=== PATIENT | male | born 1940 | race Caucasian/White ===

== ENCOUNTER 2019-12-21 18:19 | Outpatient (REF) | payer MEDICARE, OTHER, SELFPAY | END 2019-12-21 18:20 | disposition home or self-care (01) | LOC: HO.LAB 18:19 | PROVIDERS: Visit Provider Internal Medicine | DX: Z20.828 Contact with and (suspected) exposure to other viral communicable diseases (principal) | CPT/HCPCS: 87635 ==

== ENCOUNTER → 2020-05-10 13:11 | Outpatient (BNVA) | payer MEDICARE, OTHER, SELFPAY | PROVIDERS: PCP Internal Medicine; Visit Provider Urology | DX: N52.9 Male erectile dysfunction, unspecified (principal) | CPT/HCPCS: 99212 ==

== ENCOUNTER 2020-11-05 09:06 | Outpatient (REF) | payer MEDICARE, OTHER, SELFPAY ==
[2020-11-05 10:58] LABS: Prostate Specific Antigen 2.36 ng/mL (<0.05-4.0)
== END 2020-11-05 09:07 | disposition home or self-care (01) ==
LOC: HO.10HDL 09:06
PROVIDERS: Visit Provider Urology
DX: Z12.5 Encounter for screening for malignant neoplasm of prostate (principal); N13.8 Other obstructive and reflux uropathy; N40.1 Benign prostatic hyperplasia with lower urinary tract symptoms
CPT/HCPCS: 36415; 84153

== ENCOUNTER → 2020-11-08 10:31 | Outpatient (BNVA) | payer MEDICARE, OTHER, SELFPAY | PROVIDERS: PCP Internal Medicine; Visit Provider Urology | CPT/HCPCS: Q3014 ==

== ENCOUNTER → 2021-11-14 10:39 | Outpatient (BNVA) | payer MEDICARE, OTHER, SELFPAY | PROVIDERS: PCP Internal Medicine; Visit Provider Urology | DX: N40.0 Benign prostatic hyperplasia without lower urinary tract symptoms (principal); R39.15 Urgency of urination; N52.9 Male erectile dysfunction, unspecified | CPT/HCPCS: 51798; 99212 ==

== ENCOUNTER 2022-12-15 10:43 | Outpatient (REF) | payer MEDICARE, OTHER, SELFPAY ==
[2022-12-15 14:15] LABS: Prostate Specific Antigen 2.67 ng/mL (<0.05-4.0)
== END 2022-12-15 10:44 | disposition home or self-care (01) ==
LOC: HO.10HDL 10:43
PROVIDERS: Visit Provider Urology
DX: N40.1 Benign prostatic hyperplasia with lower urinary tract symptoms (principal); N13.8 Other obstructive and reflux uropathy; Z12.5 Encounter for screening for malignant neoplasm of prostate
CPT/HCPCS: 36415; 84153

== ENCOUNTER 2022-12-23 08:53 | Outpatient (AMB) | payer MEDICARE, OTHER, SELFPAY ==
--- NOTE | 2022-12-23 09:06 | MHC.OFFVIS ---
Intake Intake Visit Reasons: 1Y PSA(set) Intake Note: Patient presents today for a follow-up on ED, BPH, PSA 2.67 ng/Ml 12/15/2022: Meds- None Allergies to Antibiotic- No Known Allergies Blood Thinner- None PVR- 81 mL Stations Superintendent Required: No Accompanied by: Self / Same As Patient Allergies No Known Allergies Allergy (Verified 12/23/22 09:10) Medication List - Last Reconciled 12/23/22 by Max Strong MD atorvastatin 40 mg PO DAILY fesoterodine ER 8 mg PO DAILY 90 days losartan 25 mg PO DAILY metoprolol succinate ER 50 mg PO DAILY omeprazole 20 mg PO DAILY sildenafil 50 mg PO DAILY PRN 30 days tramadol 50 mg PO BID PRN HPI HPI Comments History of Present Illness Details Mayo is a pleasant male. He is a patient of Dr. Cho. He is seen for the following urologic conditions - erectile dysfunction - overactive bladder Yearly review Switch from oxybutynin to tolterodine due to concern regarding cognitive impact Otherwise stable PSA remains lower than typical for age Would not necessarily follow PSA yearly Erectile dysfunction Trialed multiple oral medications Carries nitroglycerin but does not use Would like trial of oral medications again Prescription for 100 mg sildenafil provided Overactive bladder Good prior response to oxybutynin Overactive bladder has been previously on oxybutynin 5 mg p.o. b.i.d. Will switch to tolterodine PSA 07/03 2.3, 11/03 2.4, 01/05 2.7 [facility], [facility] Medical History BPH (benign prostatic hyperplasia) Elevated blood pressure reading in office with diagnosis of hypertension HTN (hypertension) Mild acid reflux Nocturia Surgical History History of surgery Family History (Updated 12/23/22 @ 09:10 by JIA Nelson) Father No problems noted. Mother No problems noted. Social History (Updated 12/23/22 @ 09:11 by JIA Nelson) Alcohol intake: current Alcohol intake frequency: does not drink Patient Tobacco Use Status: Never used Tobacco Review of Systems Const Denies chills and Denies fever(s) Card Reports no additional complaints and Denies syncope Resp Denies cough GI Denies abdominal pain and Denies heartburn Reports as per HPI and Denies change in libido Neuro Denies syncope Psych Denies change in libido Endo Denies change in libido Physical Exam Const General: cooperative, healthy appearing, comfortable and no acute distress Orientation/consciousness: patient oriented x3 HEENT Face and sinus: Yes normal facial exam Mouth: moist mucous membranes Neck Neck: Yes normal visual inspection, Yes full ROM and Yes trachea midline Chest Chest palpation & inspection: normal inspection of the chest Resp Effort & Inspection: normal respiratory effort, able to speak in complete sentences and no respiratory distress GI Inspection: Yes normal to inspection Back/Spine/Pelvis Cervical Spine: normal cervical lordosis Thoracic/Lumbar Spine: thoracic and lumbar spine normal to inspection Skin General skin exam: no rashes or lesions noted Neuro General: patient oriented x3, gait normal, tone normal and moves all extremities Extrem General: Yes normal to inspection and Yes capillary refill normal Office Procedures Post Void Residual Post Residual Void Post Void Residual (PVR): 81 [id number] Void Residual by ultrasound Results AMB Urinalysis, Automated UA Leukoctes 0 Kary/uL Last Edit by JIA Nelson on 12/23/22 09:19 UA Nitrite Negative Last Edit by JIA Nelson on 12/23/22 09:19 UA Urobilinogen 1 mg/dL Last Edit by JIA Nelson on 12/23/22 09:19 UA Protein 15 mg/dL Last Edit by JIA Nelson on 12/23/22 09:19 UA pH 6.0 Last Edit by JIA Nelson on 12/23/22 09:19 UA Blood 0 Dany/uL Last Edit by JIA Nelson on 12/23/22 09:19 UA Specific [place] 1.015 Last Edit by JIA Nelson on 12/23/22 09:19 UA Ketone Negative Last Edit by JIA Nelson on 12/23/22 09:19 UA Bilirubin 0 mg/dL Last Edit by JIA Nelson on 12/23/22 09:19 UA Glucose 0 mg/dL Last Edit by JIA Nelson on 12/23/22 09:19 Results Reviewed Results Reviewed: Laboratory Last Values Urine pH (Auto) 6.0 12/23/22 09:09 Specific [place] (Auto) 1.015 12/23/22 09:09 Urine Protein (Auto) 15 mg/dL 12/23/22 09:09 Glucose (UA)(Auto) 0 mg/dL 12/23/22 09:09 Urine Ketones (Auto) Negative 12/23/22 09:09 Urine Blood (Auto) 0 Dany/uL 12/23/22 09:09 Urine Nitrite (Auto) Negative 12/23/22 09:09 Urine Bilirubin (Auto) 0 mg/dL 12/23/22 09:09 Urine Urobilinogen (Auto) 1 mg/dL 12/23/22 09:09 Leukocyte Esterase (Auto) 0 Kary/uL 12/23/22 09:09 Assessment & Plan Assessment & Plan (1) Urinary urgency: Code(s): R39.15 - Urgency of urination (2) BPH (benign prostatic hyperplasia): Code(s): N40.0 - Benign prostatic hyperplasia without lower urinary tract symptoms Qualifiers: Lower urinary tract symptom presence: symptoms present Lower urinary tract symptom detail: weak urinary stream Qualified Code(s): N40.1 - Benign prostatic hyperplasia with lower urinary tract symptoms; R39.12 - Poor urinary stream Plan Represcribed Toviaz 8mg Orders: Orders AMB Urinalysis Automated 12/23/22 Z13.9 - Encounter for screening, unspecified AMB Post Void Residual by ultrasound 12/23/22 N39.8 - Other specified disorders of urinary system Medications: Changed From fesoterodine ER 4 mg PO DAILY 90 days 90 tabs 1RF To fesoterodine ER 8 mg PO DAILY 90 tabs 3RF 90 days Patient Instructions: Imaging studies, laboratory and physical exam results were discussed and reviewed in detail. No major barriers to patient understanding were identified. An opportunity to ask questions regarding the treatment plan was provided. All questions were answered. The patient expressed understanding and agreement with the above treatment plan. The patient is aware they should contact our office by phone for worsening of their current condition or the appearance of new urologic symptoms. Compliance is encouraged with any medications and followup testing that is ordered. It is a privilege to participate in the urologic care of your patient. If you have any questions or concerns regarding treatment for the above conditions, or other urologic issues, please do not hesitate to contact me. The office telephone contact is [phone]. This note is constructed using voice recognition software. While every effort has been made to ensure accuracy therapeutic sales specialist errors may have been included. Yours sincerely, Dr Max Strong MD, [facility] - Urology Providers of Expert, Compassionate Care for the Genitourinary System Coding Level of Care Code Est Pt Level 4 (26180) Diagnoses Urinary urgency R39.15 Benign prostatic hyperplasia with weak urinary stream N40.1; R39.12 Lower urinary tract symptom presence: symptoms present Lower urinary tract symptom detail: weak urinary stream CPT Codes Post Residual Void - PVR CPT Code: 45799-Iqyq Void Residual by ultrasound ([id number])
== END 2022-12-23 09:51 | disposition home or self-care (01) ==
PROVIDERS: PCP Internal Medicine; Visit Provider Urology
DX: N40.1 Benign prostatic hyperplasia with lower urinary tract symptoms (principal); R39.15 Urgency of urination; R39.12 Poor urinary stream
CPT/HCPCS: 99214

== ENCOUNTER → 2022-12-23 08:53 | Outpatient (BNVA) | payer MEDICARE, OTHER, SELFPAY | PROVIDERS: Visit Provider Urology | DX: N40.1 Benign prostatic hyperplasia with lower urinary tract symptoms (principal); R39.12 Poor urinary stream; R39.15 Urgency of urination | CPT/HCPCS: 51798; 81003; 99212 ==

== ENCOUNTER 2024-03-25 08:17 | Outpatient (AMB) | payer MEDICARE, SELFPAY ==
--- OUTSIDE RECORDS SUMMARY | 2024-03-25 08:23 | XMS_ITS | Continuity of Care Document ---
Author Organization [facility] [address] [place] [address] Care Team Providers Care Nursing Care Attendant Name Role Phone AMPARO PANDEY Referring Provider Assessment Encounter Date Assessment Date Assessment LastModified by Organization Details LastModified Time 01/25/2024 01/25/2024 Assessment: Pt able to meet ROM goals. Good domenico to increased resistance strengthening. Challenged w Ph 3 SLR, modified to Ph 2 w good domenico Plan: Continue PT @ 2x/wk to decrease pain, increase ROM, optimize mechanics for functional mobility with gait and stairs, and facilitate independence with functional ADL's. Probable to cont thru sched'd appts and d/c [email or web address] Not available 01/25/2024 13:14:51 Plan of Treatment Reminders Order Date Submit Date Provider Last Modified By Organization Details Last Modified Time Details Appointments SURGERY @ [facility] [place] [place] 2024 10:15A M Amparo Schroeder MD Not available Not available Not available PT INITIAL EVAL 2024 02:30P M Bear Rees, PT Not available Not available Not available PT FOLLOW-U P 2024 04:00P M Bear Rees, PT Not available Not available Not available PT FOLLOW-U P 2024 04:00P Winsome Rees, PT Not available Not available Not available POST OP 15 2024 09:45A M Christa Randle PA-C Not available Not available Not available PT FOLLOW-U P 2024 04:00P Winsome Head, MARINE WATER TENDER Not available Not available Not available PT FOLLOW-U P 2024 04:00P M Damieana Fudge, MARINE WATER TENDER Not available Not available Not available PT FOLLOW-U P 2024 04:00P M Damvirgilio Fudge, MARINE WATER TENDER Not available Not available Not available PT FOLLOW-U P 2024 04:00P M Damvirgilio Fudge, MARINE WATER TENDER Not available Not available Not available POST OP 15 2024 09:45A M Christa Randle PA-C Not available Not available Not available PT FOLLOW-U P 2024 04:00P M Kun Fudge, MARINE WATER TENDER Not available Not available Not available PT FOLLOW-U P 2024 04:00P M Damvirgilio Fudge, MARINE WATER TENDER Not available Not available Not available PT FOLLOW-U P 2024 04:00P M Bear Pyser, PT Not available Not available Not available PT FOLLOW-U P 2024 04:00P M Bear Pyser, PT Not available Not available Not available PT FOLLOW-U P 2024 04:00P M Kun Fudge, MARINE WATER TENDER Not available Not available Not available PT FOLLOW-U P 2024 04:00P M Kun Fudge, MARINE WATER TENDER Not available Not available Not available RECHECK 10 2024 01:30P M Amparo Schroeder MD Not available Not available Not available Lab None recorded . Referral None recorded . Procedures None recorded . Surgeries None recorded . Imaging None recorded . Medication Orders None recorded . Patient TargetsNo targets recorded. Patient InstructionsNo instructions recorded. Reason for Referral None Reported. Results Created Date Observation Date Name Description Value Unit Range Abnormal Flag Note LastModifiedBy Organization Detail LastModifiedTime 12/31/19 24 12/31/2023 XR, knee, 3 view [email or web address] ?Encry pted=s hAaTro YD8dLq bEUv6g %2BXZw aYqtaq 0bqfl% 2Fg9IQ a4ajBk vP9nXo QUaueC m3YtLR FvZlgJ JJ8mAn HZtai3 5y6939 AC0Kqa 3qMUaW vKiQtr MwF INTERFACE [facility] [address] [facility] [address], [place], [address], 12/31/2023 14:40:31 12/31/19 24 12/31/2023 XR, knee, 3 view [email or web address] ?Encry pted=s hAaTro YD8dLq bEUv6g %2BXZw aYqtaq 0bqfl% 2Fg9IQ a4ajBk vP9nXo QUaueC m3YtLR FvZlgJ JJ8mAn HZtai3 4p5061 AC0Kqa 3qMUaW vKiQtr MwF INTERFACE [facility] [address] [facility] [place] [address], [place], [address], 12/31/2023 14:40:33 02/23/20 24 02/23/2024 XR, knee, 3 view [email or web address] ?Encry pted=s hAaTro YD8dLq bEUv6g %2BXZw aYqtaq 0bqfl% 2Fg9IQ a4ajBk vP9nXo QUaueC m3YtLR FvZlgJ JJ8mAn HZtai3 3t1579 AC0Kqb n2GU6q hKiQtr MwF INTERFACE [facility] [address] [facility] [place] [address], [place], [address], 02/23/2024 13:54:36 02/23/20 24 02/23/2024 XR, knee, 3 view [email or web address] ?Encry pted=s hAaTro YD8dLq bEUv6g %2BXZw aYqtaq 0bqfl% 2Fg9IQ a4ajBk vP9nXo QUaueC m3YtLR FvZlgJ JJ8mAn HZtai3 1m6100 AC0Kqb n2GU6q hKiQtr MwF INTERFACE [facility] [address], [place], [address], 02/23/2024 13:54:38 03/24/19 25 03/24/2024 XR, knee, 4 or more view [email or web address] ?Encry pted=s hAaTro YD8dLq bEUv6g %2BXZw aYqtaq 0bqfl% 2Fg9IQ a4ajBk vP9nXo QUaueC m3YtLR FvZlgJ JJ8mAn HZtai3 0o7361 AC0Kqb 3%2BFV KGvKiQ trMwF INTERFACE [facility] [address] [facility] [address], [place], [address], 03/24/2024 12:55:48 03/24/19 25 03/24/2024 XR, knee, 4 or more view [email or web address] ?Encry pted=s hAaTro YD8dLq bEUv6g %2BXZw aYqtaq 0bqfl% 2Fg9IQ a4ajBk vP9nXo QUaueC m3YtLR FvZlgJ JJ8mAn HZtai3 8w9201 AC0Kqb 3%2BFV KGvKiQ trMwF INTERFACE [facility] [address] [facility] [address], [place], [address], 03/24/2024 12:55:51 Result Notes None recorded. Problems Name Problem SNOMED Code Status Onset Date Resolution Date Notes Provider Name and Address Organization Details Recorded Time No complaint s 079063558 Active Status: 'I'; Not Available [facility] 4 09:15:30 Pain of bilateral knee joints 639896544436 104 Active 2023 JOSE A panda [place] - [facility] 4 15:03:37 Carpal tunnel syndrome of left wrist 725316661076 102 Active 2016 Problem Code: G56.02; Problem Code Type: ICD-10; Status: 'A'; Not Available [facility] 4 11:27:49 Problem Notes None recorded. Procedures Surgical History Date Name Laterality Status Provider Name and Address Organization Details Recorded Time 4 48498 Therapeutic Exercise (1:1) completed Kun Head, MARINE WATER TENDER [address], [place], [address], [facility] 02/05/2024 07:30:36 4 30544 Therapeutic Exercise (1:1) completed Kun Head, MARINE WATER TENDER [address], [place], [address], [facility] 02/01/2024 16:32:55 4 06053: Manual therapy completed Kun Head, MARINE WATER TENDER [address], [place], [address], [facility] 02/01/2024 16:32:55 4 90438 Therapeutic Exercise (1:1) completed Kun Head, MARINE WATER TENDER [address], [place], [address], [facility] 01/29/2024 07:11:50 4 10071: Manual therapy completed Kun Head, MARINE WATER TENDER [address], [place], [address], [facility] 01/29/2024 07:11:50 4 53092 Therapeutic Exercise (1:1) completed Kun Head, MARINE WATER TENDER [address], [place], [address], [facility] 01/25/2024 13:14:51 4 33765: Manual therapy completed Kun Head, MARINE WATER TENDER [address], [place], [address], [facility] 01/25/2024 13:14:51 4 36931 Therapeutic Exercise (1:1) completed Bear Rees, PT [address], [place], [address], [facility] 01/19/2024 21:11:57 4 36369: Manual therapy completed Bear Pyser, PT [address], [place], [address], [facility] 01/19/2024 21:11:57 44023 Therapeutic Exercise (1:1) completed Bear Pyser, PT [address], [place], [address], [facility] 01/16/2024 09:30:50 4 82195: Manual therapy completed Bear Pyser, PT [address], [place], [address], [facility] 01/16/2024 09:30:50 39705 Therapeutic Exercise (1:1) completed Bear Pyser, PT [address], [place], [address], [facility] 01/12/2024 18:14:32 20471: Manual therapy completed Bear Pyser, PT [address], [place], [address], [facility] 01/13/2024 18:03:56 76170 Therapeutic Exercise (1:1) completed Kun Head, MARINE WATER TENDER [address], [place], [address], [facility] 01/11/2024 12:59:42 85135: Manual therapy completed Kun Head, MARINE WATER TENDER [address], [place], [address], [facility] 01/11/2024 12:59:42 85487 Therapeutic Exercise (1:1) completed Kun Head, MARINE WATER TENDER [address], [place], [address], [facility] 01/08/2024 02:14:46 43051: Manual therapy completed Kun Head, MARINE WATER TENDER [address], [place], [address], [facility] 01/08/2024 02:14:46 4 81942 Therapeutic Exercise (1:1) completed Kun Head, MARINE WATER TENDER [address], [place], [address], [facility] 01/04/2024 14:21:29 4 94746: Manual therapy completed Kun Head, MARINE WATER TENDER [address], [place], [address], [facility] 01/05/2024 09:36:39 4 89001 Therapeutic Exercise (1:1) completed Bear Maldonadoser, PT [address], [place], [address], [facility] 12/26/2023 18:01:48 4 92125 Therapeutic Exercise (1:1) completed Bear Pyser, PT [address], [place], [address], [facility] 12/24/2023 18:47:44 4 11071: Low complexity PT Eval completed Bear Pyser, PT [address], [place], [address], [facility] 12/24/2023 18:47:48 4 G8417 BMI Above Upper Parameters, F/U Documented completed Bear Pyser, PT [address], [place], [address], [facility] 12/24/2023 18:55:10 4 G8428 Current Meds NOT Documented Reason Not Specified completed Bear Pyser, PT [address], [place], [address], [facility] 12/25/2023 13:50:52 4 69621 Therapeutic Exercise (1:1) completed Bear Pyser, PT [address], [place], [address], [facility] 11/24/2023 17:24:35 4 27761: Low complexity PT Eval completed Bear Maldonadoser, PT [address], [place], [address], [facility] 11/25/2023 13:45:52 4 G8417 BMI Above Upper Parameters, F/U Documented completed Bear Maldonadoser, PT [address], [place], [address], [facility] 11/24/2023 17:29:48 4 G8427 Current Medication Documented completed Bear Maldonadoser, PT [address], [place], [address], [facility] 11/24/2023 17:29:53 4 Sports Knee 4&1 completed Christa Randle PA-C [address], [place], [address], [facility] 10/13/2023 10:03:03 4 Knee Kenalog 40 1cc Injection, Bilateral completed Christa Randle PA-C [address], [place], [address], [facility] 07/14/2023 09:02:22 Imaging Results None recorded. Procedure Notes None recorded. Medical Equipment None Reported. Allergies No known drug allergies Medications Name Sig Start Date Stop Date Status Note LastModified by Organization Details LastModified Time 8 hr pain relief 650mg tab TAKE 1 TABLET BY MOUTH THREE TIMES DAILY DIRECTED FOR 33 DAYS. 12/30 completed Not Available Not Available Not Available atorvastati n 40 mg tablet TAKE 1 TABLET BY MOUTH ONCE DAILY active Not Available Not Available No t Available metoprolol succinate ER 50 mg tablet,exte nded release 24 hr TAKE 1 TABLET BY MOUTH ONCE DAILY active Not Available Not Available No t Available isosorbide mononitrate ER 30 mg tablet,exte nded release 24 hr TAKE 1 & 1/2 (ONE & ONE-HALF) TABLETS BY MOUTH ONCE DAILY active Not Available Not Available No t Available tramadol 50 mg tablet Take 1 tablet every 6 hours by oral route as needed for 7 days, for pain. active Not Available Not Available No t Available pseudoephed rine-elizabeth nesin ER 80-700 mg tablet,exte nded release 1 PO Q4-6 HRS PRN PAIN 07/13 completed Statu s: 'Curr ent'; Not Available Not Available Not Available losartan 25 mg tablet TAKE 1 TABLET BY MOUTH ONCE DAILY active Not Available Not Available No t Available nitroglycer in 0.4 mg sublingual tablet DISSOLVE ONE TABLET UNDER THE TONGUE EVERY 5 MINUTES NEEDED FOR CHEST PAIN. DO NOT EXCEED A TOTAL OF 3 DOSES IN 15 MINUTES active Not Available Not Available No t Available docusate sodium 100 mg capsule TAKE 1 CAPSULE BY MOUTH TWICE DAILY NEEDED FOR CONSTIPAT ION DIRECTED active Not Available Not Available No t Available omeprazole 20 mg capsule,del ayed release TAKE 1 CAPSULE BY MOUTH ONCE DAILY active Not Available Not Available No t Available fluticasone propionate 50 mcg/actuati on nasal spray,suspe nsion USE 2 SPRAY(S) IN EACH NOSTRIL ONCE DAILY active Not Available Not Available No t Available oxycodone 5 mg tablet TAKE 1 TO 2 TABLETS BY MOUTH EVERY 4 HOURS NEEDED FOR SEVERE PAIN active Not Available Not Available No t Available Tylenol 8 Hour 650 mg tablet,exte nded release Take 1 tablet 3 times a day by oral route as directed for 33 days. 2024 active Not Available Not Available Not Avai lable rosuvastati n 20 mg tablet active Not Available Not Available Not Available fesoterodin e ER 4 mg tablet,exte nded release 24 hr TAKE 1 TABLET BY MOUTH DAILY 11/11 completed Not Available Not Available Not Available fesoterodin e ER 8 mg tablet,exte nded release 24 hr TAKE 1 TABLET BY MOUTH DAILY active Not Available Not Available No t Available Vitals None Recorded Social History Question Answer Notes LastModified by Organizat ion Details LastModified Time Tobacco Smoking Status Never Smoker MICHELINE panda [place] - [facility] 07/14/2023 08:52:46 What Is Your Level Of Alcohol Consumption? Occasional Information not available 07/14/2023 How Many Times Per Week Do You Consume Alcohol? 3-4 Times Per Week Information not available 07/14/2023 Have You Ever Been Counseled For Unhealthy Alcohol Use? No Information not available 07/14/2023 What Is Your Relationship Status? Information not available 07/14/2023 Do You Use Any Illicit Or Recreational Drugs? No Information not available 07/14/2023 Do You Or Have You Ever Used Any Other Forms Of Tobacco Or Nicotine? No Information not available 07/14/2023 Sex: Unknown Functional Status None recorded. Mental Status None recorded. Family History Nothing Reported. Medical History Condition Response Allergies/Hayfever Y Coronary Artery Disease N Anxiety/Depression N Emphysema N Thyroid Problems N COPD N Pacemaker N Anemia N Kidney/Bladder Problems N Vascular Disease N Heart Attack (IA) N Gastrointestinal Disease N Diabetes N Autoimmune disease N Bleeding Disorder N Orthotics N Arthritis Y Seizures/Epilepsy N Blood Clot N AIDS/HIV N Congestive Heart Failure (CHF) N Acid Reflux (GERD) Y Cancer N Stroke N Asthma N Peripheral Vascular Disease N Sleep Apnea Y Hepatitis N Heart Disease Y Rheumatoid Arthritis N Arrhythmia N Pulmonary Embolism N Fibromyalgia N Hypertension Y Osteoporosis N Past Encounters Encounter ID Performer Location Encounter Start Date Encounter Closed Date Diagnosis/Indication Diagnosis SNOMED-CT Code Diagnosis ICD10 Code Diagnosis Note [id number] MD Freddie Lao PT [address] [place] [place] [address] 12/25/2023 13:00:15 12/25/2023 15:51:29 History of left total knee replacement 8482256508 018623 Z96.652 Z47.1 [id number] Bear Rees, PT [facility] [address] [place] [address] 12/30/2023 16:22:23 12/30/2023 17:06:22 History of left total knee replacement 6455755855 138337 Z96.652 Z47.1 [id number] [facility] [address] [place] [address] 12/31/2023 14:18:38 01/22/2024 10:07:21 History of operative procedure on knee 435658038 Z96.652 Postoperative visit 8170 51695 Z48.89 [id number] Justin Malcolm, PT [facility] [address] [place] [address] 01/04/2024 16:02:15 01/04/2024 17:00:59 History of left total knee replacement 4486178928 436762 Z96.652 Z47.1 [id number] Justin Malcolm, PT [facility] [address] [place] [address] 01/06/2024 15:58:20 01/06/2024 17:17:45 History of left total knee replacement 7517757392 547958 Z96.652 Z47.1 [id number] Justin Malcolm, PT [facility] [address] [place] [address] 01/11/2024 15:43:35 01/11/2024 16:49:13 History of left total knee replacement 8059935768 925642 Z96.652 Z47.1 [id number] Bear Pyser, PT [facility] [address] [place] [address] 01/13/2024 16:44:53 01/13/2024 17:32:34 History of left total knee replacement 5343716909 775085 Z96.652 Z47.1 [id number] Alan Forman PA-C [facility] [address] [place] [address] 01/14/2024 14:22:56 02/05/2024 13:25:23 Aftercare 114094314 Z51.89 Implantati on of joint prosthesis 72006635 Z47.1 [id number] Bear Pyser, PT [facility] [address] [place] [address] 01/18/2024 16:15:58 01/18/2024 17:47:38 History of left total knee replacement 9463283596 375619 Z96.652 Z47.1 [id number] Bear Pyser, PT [facility] [address] [place] [address] 01/20/2024 15:49:35 01/20/2024 17:03:39 History of left total knee replacement 2982876299 817534 Z96.652 Z47.1 [id number] Bear Pyser, PT [facility] [address] [place] [address] 01/25/2024 16:46:12 01/25/2024 17:43:26 History of left total knee replacement 9615075164 964367 Z96.652 Z47.1 Health Concerns Section Related Observation LastModified by Organization Detai ls LastModified Time None Recorded Concern Status LastModified by Organization Details LastModified Time None Recorded Payers Encounter Date Sequence Insurance Name Policy Number Policy Licona Covered Member ID Licona Member ID Guarantor Name 01/25/2024 1 [place] [employer] Mayo Andino [id number] Mayo Andino 01/25/2024 2 [facility] - PLAN 1 (MEDICARE SUPPLEMENT) [id number] Mayo Andino [id number] Mayo Andino Notes Date Note Type Note Provider Name and Address Organization Details Recorded Time 01/25/2024 text/html Pt reports 2/10 lat knee pain. Good day some increased functional activity around house Bear Rees, PT [address], [place], [address], [facility] - [facility] 01/25/2024 18:04:18
--- OUTSIDE RECORDS SUMMARY | 2024-03-25 08:23 | XMS_ITS | Continuity of Care Document ---
Author Organization [facility], [facility] 1st Floor Address [address] [place] [address] Care Team Providers Care Die Cutter Diamond Name Role Phone AMPARO PANDEY Referring Provider Assessment Encounter Date Assessment Date Assessment LastModified by Organization Details LastModified Time 01/14/2024 01/14/2024 I am seeing the patient today under the supervision of Dr. Julio who was available but who did not see the patient. 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 Happy with the results. No significant complaints of pain. Doing well with P.T. ROM with therapy is 0-121 degrees. PAST MEDICAL/SURGICAL HISTORY Reviewed today, otherwise unchanged per intake sheet. REVIEW OF SYSTEMS Systemic: No fever and no chills. Cardiovascular: No chest pain or discomfort. Pulmonary: No dyspnea. PHYSICAL FINDINGS General Appearance: Well developed. ?? In no acute distress. Musculoskeletal System: Lower Leg: General/bilatera l: ?? Calves of both lower legs were not tender on palpation. Neurological: Oriented to time, place, and person. Gait And Stance: An operative sided antalgic gait was observed with assistive device. Psychiatric: Mood was appropriate to the affect. Skin inspection reveals incision intact with no evidence of infection. ROM is as above. Mild effusion noted Stable to varus/valgus stress. Extensor mechanism is intact. Normal sensation bilateral lower extremities Contralateral side shows no warmth, erythema, soft tissue swelling or effusion. TESTS X-rays ordered, obtained and reviewed at [facility] today, three views, reveals maintained alignment of the prosthetic components, no fractures or dislocations, excellent interface, patella tracking centrally. ASSESSMENT Progressing nicely 4 weeks status post Left total knee arthroplasty. PLAN The patient is progressing nicely and will continue total knee precautions. Continue to work on range of motion and strengthening exercises.Giuliana trotter is on ASA 325mg BID for DVT prophlaxis. Follow-up as scheduled for re-evaluation, sooner if there is any complications. [email or web address] Not available 01/14/2024 14:44:00 Plan of Treatment Reminders Order Date Submit Date Provider Last Modified By Organization Details Last Modified Time Details Appointments [place] [facility] [place] 10:15A M Amparo Schroeder MD Not available Not available Not available PT INITIAL EVAL 2024 02:30P M Bear Pyser, PT Not available Not available Not available PT FOLLOW-U P 2024 04:00P M Bear Pyser, PT Not available Not available Not available PT FOLLOW-U P 2024 04:00P M Bear Pyser, PT Not available Not available Not available POST OP 15 2024 09:45A Winsome Randle PA-C Not available Not available Not available PT FOLLOW-U P 2024 04:00P M Damieana Fudge, AUTOMATIC FANCY MACHINE OPERATOR Not available Not available Not available PT FOLLOW-U P 2024 04:00P M Damieana Fudge, AUTOMATIC FANCY MACHINE OPERATOR Not available Not available Not available PT FOLLOW-U P 2024 04:00P M Damieana Fudge, AUTOMATIC FANCY MACHINE OPERATOR Not available Not available Not available PT FOLLOW-U P 2024 04:00P M Damieana Fudge, AUTOMATIC FANCY MACHINE OPERATOR Not available Not available Not available POST OP 15 2024 09:45A Winsome Randle PA-C Not available Not available Not available PT FOLLOW-U P 2024 04:00P M Damieana Fudge, AUTOMATIC FANCY MACHINE OPERATOR Not available Not available Not available PT FOLLOW-U P 2024 04:00P M Damieana Fudge, AUTOMATIC FANCY MACHINE OPERATOR Not available Not available Not available PT FOLLOW-U P 2024 04:00P M Bear Pyser, PT Not available Not available Not available PT FOLLOW-U P 2024 04:00P M Bear Pyser, PT Not available Not available Not available PT FOLLOW-U P 2024 04:00P M Kun Head, AUTOMATIC FANCY MACHINE OPERATOR Not available Not available Not available PT FOLLOW-U P 2024 04:00P Winsome Head, AUTOMATIC FANCY MACHINE OPERATOR Not available Not available Not available RECHECK [...] Abnormal Flag Note LastModifiedBy Organization Detail LastModifiedTime 12/16/1912/16/2023 XR, knee, 1 or 2 view No observ ation record ed. [email or web address] [facility] [address] [place], [address], 12/21/2023 09:29:25 12/31/19 24 12/31/2023 XR, knee, 3 view [email or web address] ?Encry pted=s hAaTro YD8dLq bEUv6g %2BXZw aYqtaq 0bqfl% 2Fg9IQ a4ajBk vP9nXo QUaueC m3YtLR FvZlgJ JJ8mAn HZtai3 5q1925 AC0Kqa 3qMUaW vKiQtr MwF INTERFACE [facility] [address], [place], [address], 12/31/2023 14:40:31 12/31/19 24 12/31/2023 XR, knee, 3 view [email or web address] ?Encry pted=s hAaTro YD8dLq bEUv6g %2BXZw aYqtaq 0bqfl% 2Fg9IQ a4ajBk vP9nXo QUaueC m3YtLR FvZlgJ JJ8mAn HZtai3 7q7477 AC0Kqa 3qMUaW vKiQtr MwF INTERFACE [facility] [address], [place], [address], 12/31/2023 14:40:33 02/23/20 24 02/23/2024 XR, knee, 3 view [email or web address] ?Encry pted=s hAaTro YD8dLq bEUv6g %2BXZw aYqtaq 0bqfl% 2Fg9IQ a4ajBk vP9nXo QUaueC m3YtLR FvZlgJ [facility] HZtai3 4d4073 AC0Kqb n2GU6q hKiQtr MwF INTERFACE [facility] [address], [place], [address], 02/23/2024 13:54:36 02/23/20 24 02/23/2024 XR, knee, 3 view [email or web address] ?Encry pted=s hAaTro YD8dLq bEUv6g %2BXZw aYqtaq 0bqfl% 2Fg9IQ a4ajBk vP9nXo QUaueC m3YtLR FvZ[address] HZtai3 7h1770 AC0Kqb n2GU6q hKiQtr MwF INTERFACE [facility] [address] [facility] [address], [place], [address], 02/23/2024 13:54:38 03/24/19 25 03/24/2024 XR, knee, 4 or more view [email or web address] ?Encry pted=s hAaTro YD8dLq bEUv6g %2BXZw aYqtaq 0bqfl% 2Fg9IQ a4ajBk vP9nXo QUaueC m3YtLR FvZlgJ JJ8mAn HZtai3 0s9345 AC0Kqb 3%2BFV KGvKiQ trMwF INTERFACE [facility] [address], [place], [address], 03/24/2024 12:55:48 03/24/1903/24/2024 XR, knee, 4 or more view [email or web address] ?Encry pted=s hAEmelio YD8dLq bEUv6g %2BXZw aYqtaq 0bqfl% 2Fg9IQ a4ajBk vP9nXo QUaueC m3YtLR FvZlgJ JJ8mAn HZtai3 5i6634 AC0Kqb 3%2BFV KGvKiQ trMwF INTERFACE [facility] [address], [place], [address], 03/24/2024 12:55:51 Result Notes None recorded. Problems Name Problem SNOMED Code Status Onset Date Resolution Date Notes Provider Name and Address Organization Details Recorded Time No complaint s 372359400 Active Status: 'I'; Not Available [facility] 4 09:15:30 Pain of bilateral knee joints 974244566483 104 Active 2023 JOSE A YOUSSEF [facility] 4 15:03:37 Carpal tunnel syndrome of left wrist 416913702198 102 Active 2016 Problem Code: G56.02; Problem Code Type: ICD-10; Status: 'A'; Not Available [facility] 4 11:27:49 Problem Notes None recorded. Procedures Surgical History Date Name Laterality Status Provider Name and Address Organization Details Recorded Time 4 08447 Therapeutic Exercise (1:1) completed Kun Head, AUTOMATIC FANCY MACHINE OPERATOR [address] [facility], [place], [address], [facility] 02/05/2024 07:30:36 4 85753 Therapeutic Exercise (1:1) completed Kun Head, AUTOMATIC FANCY MACHINE OPERATOR [address], [place], [address], [facility] 02/01/2024 16:32:55 4 90457: Manual therapy completed Kun Head, AUTOMATIC FANCY MACHINE OPERATOR [address], [place], [address], [facility] 02/01/2024 16:32:55 4 37888 Therapeutic Exercise (1:1) completed Kun Head, AUTOMATIC FANCY MACHINE OPERATOR [address], [place], [address], [facility] 01/29/2024 07:11:50 4 25258: Manual therapy completed Kun Head, AUTOMATIC FANCY MACHINE OPERATOR [address], [place], [address], [facility] 01/29/2024 07:11:50 4 51394 Therapeutic Exercise (1:1) completed Kun Head, AUTOMATIC FANCY MACHINE OPERATOR [address], [place], [address], [facility] 01/25/2024 13:14:51 4 18781: Manual therapy completed Kun Head, AUTOMATIC FANCY MACHINE OPERATOR [address], [place], [address], [facility] 01/25/2024 13:14:51 4 13402 Therapeutic Exercise (1:1) completed Bear Rees, PT [address], [place], [address], [facility] 01/19/2024 21:11:57 4 40477: Manual therapy completed Bear Rees, PT [address], [place], [address], [facility] 01/19/2024 21:11:57 4 70439 Therapeutic Exercise (1:1) completed Bear Rees, PT [address], [place], [address], [facility] 01/16/2024 09:30:50 4 17751: Manual therapy completed Bear Rees, PT [address], [place], [address], [facility] 01/16/2024 09:30:50 27111 Therapeutic Exercise (1:1) completed Bear Rees, PT [address], [place], [address], [facility] 01/12/2024 18:14:32 15416: Manual therapy completed Bear Maldonadoser, PT [address], [place], [address], [facility] 01/13/2024 18:03:56 03906 Therapeutic Exercise (1:1) completed Kun Head, AUTOMATIC FANCY MACHINE OPERATOR [address], [place], [address], [facility] 01/11/2024 12:59:42 15616: Manual therapy completed Kun Head, AUTOMATIC FANCY MACHINE OPERATOR [address], [place], [address], [facility] 01/11/2024 12:59:42 19524 Therapeutic Exercise (1:1) completed Kun Head, AUTOMATIC FANCY MACHINE OPERATOR [address], [place], [address], [facility] 01/08/2024 02:14:46 01077: Manual therapy completed Kun Head, AUTOMATIC FANCY MACHINE OPERATOR [address], [place], [address], [facility] 01/08/2024 02:14:46 24720 Therapeutic Exercise (1:1) completed Kun Head, AUTOMATIC FANCY MACHINE OPERATOR [address], [place], [address], [facility] 01/04/2024 14:21:29 12452: Manual therapy completed Kun Head, AUTOMATIC FANCY MACHINE OPERATOR [address], [place], [address], [facility] 01/05/2024 09:36:39 43544 Therapeutic Exercise (1:1) completed Bear Pyser, PT [address], [place], [address], [facility] 12/26/2023 18:01:48 4 68347 Therapeutic Exercise (1:1) completed Bear Pyser, PT [address], [place], [address], [facility] 12/24/2023 18:47:44 4 37214: Low complexity PT Eval completed Bear Pyser, PT [address], [place], [address], [facility] 12/24/2023 18:47:48 4 G8417 BMI Above Upper Parameters, F/U Documented completed Bear Pyser, PT [address], [place], [address], [facility] 12/24/2023 18:55:10 4 G8428 Current Meds NOT Documented Reason Not Specified completed Bear Pyser, PT [address], [place], [address], [facility] 12/25/2023 13:50:52 4 88092 Therapeutic Exercise (1:1) completed Bear Pyser, PT [address], [place], [address], [facility] 11/24/2023 17:24:35 4 99242: Low complexity PT Eval completed Bear Pyser, PT [address], [place], [address], [facility] 11/25/2023 13:45:52 4 G8417 BMI Above Upper Parameters, F/U Documented completed Bear Pyser, PT [address], [place], [address], [facility] 11/24/2023 17:29:48 4 G8427 Current Medication Documented completed Bear Pyser, PT [address], [place], [address], [facility] 11/24/2023 17:29:53 4 Sports Knee 4&1 completed Christa Randle PA-C [address], [place], [address], [facility] 10/13/2023 10:03:03 4 Knee Kenalog 40 1cc Injection, Bilateral completed Christa Randle PA-C [address], [place], [address], [facility] 07/14/2023 09:02:22 Imaging Results None recorded. Procedure [...] Available Not Available No t Available pseudoephed rine-guaife nesin ER 80-700 mg tablet,exte nded release [...] Available Not Available No t Available Vitals Date Recorded Body height Body mass index (BMI) Body weight Provider Name and Address Organization Details Last Updated DateTime 01/14/2024 168.91 cm 29.3 kg/m2 28557 g JAMARI ANDERSON [facility] 01/14/2024 14:26:51 Social History Question Answer Notes LastModified by Organizat ion Details LastModified Time Tobacco Smoking Status Never Smoker VALPA JUSTIN [facility] 07/14/2023 08:52:46 What Is Your Level Of [...] Problems N Vascular Disease N Heart Attack (VT) N Gastrointestinal Disease N Diabetes N Autoimmune [...] SNOMED-CT Code Diagnosis ICD10 Code Diagnosis Note [id number] Amparo Schroeder MD [facility] [address] [place] [address] 12/25/2023 13:00:15 12/25/2023 15:51:29 History of left total knee replacement 4241772836 439178 96.652 Z47.1 [id number] Bear Rees, PT [facility] [address] [place] [address] 12/30/2023 16:22:23 12/30/2023 17:06:22 History of left total knee replacement 0568906218 416157 96.652 Z47.1 [id number] Christa Randle PA-C [facility] [address] [place] [address] 12/31/2023 14:18:38 01/22/2024 10:07:21 History of operative procedure on knee 227255456 Z96.652 Postoperative visit 8639 10493 Z48.89 [id number] Justin Malcolm, PT [facility] [address] [place] [address] 01/04/2024 16:02:15 01/04/2024 17:00:59 History of left total knee replacement 1560144338 685413 Z96.652 Z47.1 [id number] Justin Malcolm, PT [facility] [address] [place] [address] 01/06/2024 15:58:20 01/06/2024 17:17:45 History of left total knee replacement 5050036155 120167 Z96.652 Z47.1 [id number] Justin Malcolm, PT [facility] [address] [place] [address] 01/11/2024 15:43:35 01/11/2024 16:49:13 History of left total knee replacement 1540121861 235990 Z96.652 Z47.1 [id number] Bear Rees, PT [facility] [address] [place] [address] 01/13/2024 16:44:53 01/13/2024 17:32:34 History of left total knee replacement 1773908711 097540 Z96.652 Z47.1 [id number] Alan Forman PA-C [facility] [address] [place] [address] 01/14/2024 14:22:56 02/05/2024 13:25:23 Aftercare 114593150 Z51.89 Implantati on of joint prosthesis 09755563 Z47.1 Health Concerns Section Related Observation LastModified by Organization Detai ls LastModified Time None Recorded Concern Status LastModified by Organization Details LastModified Time None Recorded Payers Encounter Date Sequence Insurance Name Policy Number Policy Licona Covered Member ID Licona Member ID Guarantor Name 01/14/2024 1 MEDICARE B-[place]: NATIONAL [employer] Mayo Andino [id number] Mayo Andino 01/14/2024 2 HEALTH [employer] - PLAN 1 (MEDICARE SUPPLEMENT) [id number] Mayo Andino [id number] Mayo Andino
--- OUTSIDE RECORDS SUMMARY | 2024-03-25 08:23 | XMS_ITS | Continuity of Care Document ---
Author Organization [facility] [address] [place] [address] Care Team Providers Care Payroll Bookkeeper Name Role Phone AMPARO PANDEY Referring Provider Assessment Encounter Date Assessment Date Assessment LastModified by Organization Details LastModified Time 12/25/2023 12/25/2023 Assessment: Patient presents with signs and symptoms consistent with TKA, including swelling, decreased ROM, strength, and antalgic gait mechanics. Plan: Continue PT @ 2x/wk for 8 weeks to decrease pain, increase ROM, optimize mechanics for functional mobility with gait and stairs, and facilitate independence with functional ADL's. [email or web address] Not available 12/24/2023 18:48:37 Plan of Treatment Reminders Order Date Submit Date Provider Last Modified By Organization Details Last Modified Time Details Appointments SURGERY @ [facility] 2024 10:15A M Amparo Schroeder MD Not available Not available Not available PT INITIAL EVAL 2024 02:30P M Bear Rees, PT Not available Not available Not available PT FOLLOW-U P 2024 04:00P M Bear Maldonadoser, PT Not available Not available Not available PT FOLLOW-U P 2024 04:00P M Bear Rees, PT Not available Not available Not available POST OP 15 2024 09:45A M Christa Randle PA-C Not available Not available Not available PT FOLLOW-U P 2024 04:00P M Kun Head, SALES REPRESENTATIVE [facility] Not available Not available Not available PT FOLLOW-U P 2024 04:00P Winsome Head, SALES REPRESENTATIVE [facility] Not available Not available Not available PT FOLLOW-U P 2024 04:00P M Kun Camposdge, SALES REPRESENTATIVE [facility] Not available Not available Not available PT FOLLOW-U P 2024 04:00P M Kun Fudge, SALES REPRESENTATIVE [facility] Not available Not available Not available POST OP 15 2024 09:45A M Christa Randle, PA-C Not available Not available Not available PT FOLLOW-U P 2024 04:00P M Kun Fudge, SALES REPRESENTATIVE [facility] Not available Not available Not available PT FOLLOW-U P 2024 04:00P M Kun Fudge, SALES REPRESENTATIVE [facility] Not available Not available Not available PT FOLLOW-U P 2024 04:00P M Bear Pyser, PT Not available Not available Not available PT FOLLOW-U P 2024 04:00P M Bear Pyser, PT Not available Not available Not available PT FOLLOW-U P 2024 04:00P M Kun Camposdge, SALES REPRESENTATIVE [facility] Not available Not available Not available PT FOLLOW-U P 2024 04:00P M uKn Camposdge, SALES REPRESENTATIVE [facility] Not available Not available Not available RECHECK 10 2024 01:30P M Amparo Schroeder MD Not available Not available Not available Lab None recorded . Referral None recorded . Procedures None recorded . Surgeries None recorded . Imaging None recorded . Medication Orders None recorded . Patient Targets Encounter Date Encounter Id Patient Goals Patient Target Last Modified By Organization Details Last Modified Time 12/25/2023 [id number] 3 weeks of Left Knee PROM motion: extension: passive motion, left (___ degrees) Not available Not available Not available 3 weeks of Left Knee PROM motion: flexion: passive motion, left (___ degrees) Not available Not available Not available refrigeration tech goal of Left Knee PROM (normal) motion: flexion: passive motion, left (120 degrees) Not available Not available Not available refrigeration tech goal of Left Knee PROM (normal) motion: extension: passive motion, left (.0 degrees) Not available Not available Not available 3 weeks of Left Knee Strength motor strength: knees: extension: left ___ (0-5) Not available Not available Not available 3 weeks of Left Knee Strength motor strength: knees: flexion: left ___ (0-5) Not available Not available Not available intermediate goal of Left Knee Strength (normal) strength: knees: flexion: left 5 (0-5) Not available Not available Not available refrigeration tech goal of Left Knee Strength (normal) strength: knees: extension: left 5 (0-5) Not available Not available Not available 3 weeks of Overall ADL's WFL Not available Not available Not available refrigeration tech goal of Overall ADL's unlimited Not available Not available Not available intermediate goal of Squatting performs without symptoms Not available Not available Not available 3 weeks of Gait and Stance: on level surfaces Not available Not available Not available intermediate goal of Gait and Stance: ambulates with no assitive devices Not available Not available Not available 3 weeks of Stairs step-to pattern Not available Not available Not available 3 weeks of Pain <5/10 Not available Not available Not available refrigeration tech goal of Pain 0/10 Not available Not available Not available intermediate goal of Stair climbing (ascending and descending stairs) reciprocally Not available Not available Not available Patient InstructionsNo instructions recorded. Reason for Referral None Reported. Results Created Date Observation Date Name Description Value Unit Range Abnormal Flag Note LastModifiedBy Organization Detail LastModifiedTime 12/07/19 24 11/12/2023 XR, knee, 4 or more view [email or web address]:/ [email or web address] ?Encry pted=s hAaTro YD8dLq bEUv6g %2BXZw aYqtaq 0bqfl% 2Fg9IQ a4ajBk vP9nXo QUaueC m3YtLR FvZlgJ JJ8mAn HZtai3 8i8752 AC0Krb 3uEV6P eUC8mr 84%3D INTERFACE [facility] Office [address] [facility] [address], [place], [address], 12/07/2023 10:43:42 12/07/19 24 11/12/2023 XR, knee, 4 or more view [email or web address]:/ [email or web address] ?Encry pted=s hAaTro YD8dLq bEUv6g %2BXZw aYqtaq 0bqfl% 2Fg9IQ a4ajBk vP9nXo QUaueC m3YtLR FvZlgJ JJ8mAn HZtai3 7v7962 AC0Krb 3uEV6P eUC8mr 84%3D INTERFACE [facility] [address], [place], [address], 12/07/2023 10:43:43 12/10/19 24 12/02/2023 stres s echoc ardio gram No observ ation record ed. [facility] [address] [facility], [place], [address], 12/11/2023 11:09:38 12/16/1912/16/2023 XR, knee, 1 or 2 view No observ ation record ed. [email or web address] [facility] [address] [facility], [place], [address], 12/21/2023 09:29:25 12/31/1912/31/2023 XR, knee, 3 view [email or web address]:/ [email or web address] ?Encry pted=s hAaTro YD8dLq bEUv6g %2BXZw aYqtaq 0bqfl% 2Fg9IQ a4ajBk vP9nXo QUaueC m3YtLR FvZlgJ JJ8mAn HZtai3 0e8387 AC0Kqa 3qMUaW vKiQtr MwF INTERFACE [facility] [address], [place], [address], 12/31/2023 14:40:31 12/31/1912/31/2023 XR, knee, 3 view [email or web address]:/ [email or web address] ?Encry pted=s hAaTro YD8dLq bEUv6g %2BXZw aYqtaq 0bqfl% 2Fg9IQ a4ajBk vP9nXo QUaueC m3YtLR FvZlgJ JJ8mAn HZtai3 1a7608 AC0Kqa 3qMUaW vKiQtr MwF INTERFACE [facility] [address], [place], [address], 12/31/2023 14:40:33 02/23/20 24 02/23/2024 XR, knee, 3 view [email or web address]:/ [email or web address] ?Encry pted=s hAaTro YD8dLq bEUv6g %2BXZw aYqtaq 0bqfl% 2Fg9IQ a4ajBk vP9nXo QUaueC m3YtLR FvZlgJ JJ8mAn HZtai3 1t8765 AC0Kqb n2GU6q hKiQtr MwF INTERFACE [facility] [address], [place], [address], 02/23/2024 13:54:36 02/23/20 24 02/23/2024 XR, knee, 3 view [email or web address]:/ [email or web address] ?Encry pted=s hAaTro YD8dLq bEUv6g %2BXZw aYqtaq 0bqfl% 2Fg9IQ a4ajBk vP9nXo QUaueC m3YtLR FvZlgJ JJ8mAn HZtai3 4j4917 AC0Kqb n2GU6q hKiQtr MwF INTERFACE [facility] [address], [place], [address], 02/23/2024 13:54:38 03/24/19 25 03/24/2024 XR, knee, 4 or more view [email or web address]:/ [email or web address] ?Encry pted=s hAaTro YD8dLq bEUv6g %2BXZw aYqtaq 0bqfl% 2Fg9IQ a4ajBk vP9nXo QUaueC m3YtLR FvZlgJ JJ8mAn HZtai3 0e5372 AC0Kqb 3%2BFV KGvKiQ trMwF INTERFACE [facility] [address], [place], [address], 03/24/2024 12:55:48 03/24/19 25 03/24/2024 XR, knee, 4 or more view [email or web address]:/ [email or web address] ?Encry pted=s hAaTro YD8dLq bEUv6g %2BXZw aYqtaq 0bqfl% 2Fg9IQ a4ajBk vP9nXo QUaueC m3YtLR FvZlgJ JJ8mAn HZtai3 3f5331 AC0Kqb 3%2BFV KGvKiQ trMwF INTERFACE [facility] [address], [place], [address], 03/24/2024 12:55:51 Result Notes None recorded. Problems Name Problem SNOMED Code Status Onset Date Resolution Date Notes Provider Name and Address Organization Details Recorded Time No complaint s 319159835 Active Status: 'I'; Not Available [facility] 4 09:15:30 Pain of bilateral knee joints 485727859507 104 Active 2023 JOSE A YOUSSEF [facility] 4 15:03:37 Carpal tunnel syndrome of left wrist 531678074194 102 Active 2016 Problem Code: G56.02; Problem Code Type: ICD-10; Status: 'A'; Not Available [facility] 4 11:27:49 Problem Notes None recorded. Procedures Surgical History Date Name Laterality Status Provider Name and Address Organization Details Recorded Time 4 13433 Therapeutic Exercise (1:1) completed Kun Head, SALES REPRESENTATIVE [facility] [address] [facility], [place], [address], [facility] 02/05/2024 07:30:36 4 63354 Therapeutic Exercise (1:1) completed Kun Head, SALES REPRESENTATIVE [facility] [address] [facility], [place], [address], [facility] 02/01/2024 16:32:55 4 75482: Manual therapy completed Kun Head, SALES REPRESENTATIVE [facility] [address] [facility], [place], [address], [facility] 02/01/2024 16:32:55 4 33841 Therapeutic Exercise (1:1) completed Kun Head, SALES REPRESENTATIVE [facility] [address], [place], [address], [facility] 01/29/2024 07:11:50 4 61010: Manual therapy completed Kun Head, SALES REPRESENTATIVE [facility] [address], [place], [address], [facility] 01/29/2024 07:11:50 4 77257 Therapeutic Exercise (1:1) completed Kun Head, SALES REPRESENTATIVE [facility] [address], [place], [address], [facility] 01/25/2024 13:14:51 4 00856: Manual therapy completed Kun Head, SALES REPRESENTATIVE [facility] [address], [place], [address], [facility] 01/25/2024 13:14:51 4 73796 Therapeutic Exercise (1:1) completed Bear Rees, PT [address], [place], [address], [facility] 01/19/2024 21:11:57 4 34762: Manual therapy completed Bear Rees, PT [address], [place], [address], [facility] 01/19/2024 21:11:57 4 96071 Therapeutic Exercise (1:1) completed Bear Rees, PT [address], [place], [address], [facility] 01/16/2024 09:30:50 4 78640: Manual therapy completed Bear Rees, PT [address], [place], [address], [facility] 01/16/2024 09:30:50 [id number] Therapeutic Exercise (1:1) completed Bear Pyser, PT [address], [place], [address], [facility] 01/12/2024 18:14:32 31465: Manual therapy completed Bear Pyser, PT [address], [place], [address], [facility] 01/13/2024 18:03:56 73147 Therapeutic Exercise (1:1) completed Kun Nievese, SALES REPRESENTATIVE [facility] [address], [place], [address], [facility] 01/11/2024 12:59:42 56598: Manual therapy completed Kun Nievese, SALES REPRESENTATIVE [facility] [address], [place], [address], [facility] 01/11/2024 12:59:42 93050 Therapeutic Exercise (1:1) completed Kun Nievese, SALES REPRESENTATIVE [facility] [address], [place], [address], [facility] 01/08/2024 02:14:46 31100: Manual therapy completed Kun Nievese, SALES REPRESENTATIVE [facility] [address], [place], [address], [facility] 01/08/2024 02:14:46 02262 Therapeutic Exercise (1:1) completed Kun Nievese, SALES REPRESENTATIVE [facility] [address], [place], [address], [facility] 01/04/2024 14:21:29 07902: Manual therapy completed Kun Nievese, SALES REPRESENTATIVE [facility] [address], [place], [address], [facility] 01/05/2024 09:36:39 28428 Therapeutic Exercise (1:1) completed Bear Pyser, PT [address], [place], [address], [facility] 12/26/2023 18:01:48 4 08137 Therapeutic Exercise (1:1) completed Bear Pyser, PT [address], [place], [address], [facility] 12/24/2023 18:47:44 4 99733: Low complexity PT Eval completed Bear Pyser, PT [address], [place], [address], [facility] 12/24/2023 18:47:48 4 G8417 BMI Above Upper Parameters, F/U Documented completed Bear Pyser, PT [address], [place], [address], [facility] 12/24/2023 18:55:10 4 G8428 Current Meds NOT Documented Reason Not Specified completed Bear Pyser, PT [address], [place], [address], [facility] 12/25/2023 13:50:52 4 69425 Therapeutic Exercise (1:1) completed Bear Pyser, PT [address], [place], [address], [facility] 11/24/2023 17:24:35 4 58415: Low complexity PT Eval completed Bear Pyser, PT [address], [place], [address], [facility] 11/25/2023 13:45:52 4 G8417 BMI Above Upper Parameters, F/U Documented completed Bear Pyser, PT [address], [place], [address], [facility] 11/24/2023 17:29:48 4 G8427 Current Medication Documented completed Bear Pyser, PT [address], [place], [address], [facility] 11/24/2023 17:29:53 4 Sports Knee 4&1 completed Christa Randle PA-C [address], [place], [address], [facility] 10/13/2023 10:03:03 4 Knee Kenalog 40 1cc Injection, Bilateral completed Christa Randle PA-C [address], [place], [address], [facility] 07/14/2023 09:02:22 Imaging Results None recorded. Procedure [...] and Address Organization Details Last Updated DateTime 12/25/2023 168.91 cm 29.3 kg/m2 52933 g Bear Rees, PT [address], [place], [address], [place] [facility] [place] [facility] 12/24/2023 18:49:41 Social History Question Answer Notes LastModified by Organizat ion Details LastModified Time Tobacco Smoking Status Never Smoker MICHELINE panda [place] [facility] [place] [facility] 07/14/2023 08:52:46 What Is Your Level Of [...] Thyroid Problems N COPD N Pacemaker N Kidney/Bladder Problems N Anemia N Vascular Disease N Gastrointestinal Disease N Heart Attack (NM) N Diabetes N Autoimmune disease N Bleeding [...] SNOMED-CT Code Diagnosis ICD10 Code Diagnosis Note [id number] MD Freddie Lao [facility] [address] [place] [address] 11/25/2023 13:19:36 11/25/2023 14:07:58 Osteoarthritis of knee 337093853 M17.12 [id number] Feliz Villarreal NP [facility] [address] [place] [address] 12/07/2023 09:53:20 12/29/2023 09:24:41 Osteoarthritis of left knee joint 7678484073 53940 M17.12 [id number] MD Freddie Lao PT [address] [place] [address] 12/25/2023 13:00:15 12/25/2023 15:51:29 History of left total knee replacement 3296531310 344269 Z96.652 Z47.1 Health Concerns Section Related Observation LastModified by Organization Detai ls LastModified Time None Recorded Concern Status LastModified by Organization Details LastModified Time None Recorded Payers Encounter Date Sequence Insurance Name Policy Number Policy Licona Covered Member ID Licona Member ID Guarantor Name 12/25/2023 1 [place] [employer] Mayo Andino [id number] Mayo Andino 12/25/2023 2 [facility] - PLAN 1 (MEDICARE SUPPLEMENT) [id number] Mayo Andino [id number] Mayo Tejada Thu Notes Date Note Type Note Provider Name and Address Organization Details Recorded Time 12/25/2023 text/html Patient is 83 ye ar old male, with chronic history of knee pain and OA L > R. Cortisone usually give him a few weeks of relief. Presents s/p L TKA 12/16/23. Received home care PT x 5v thru 12/23/23. Has 5 steps into home and 0 steps needed inside home, steps to cellar, not needed. Reports numbness lateral to incision, denies tingling. 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 Patient goal is to resume pain free and no crepitus knees, be able to do floor transfers. Also sched'd for R TKR 03/30/24 Bear Rees, PT [address], [place], [address], [facility] [place] [facility] 12/25/2023 13:51:39
--- OUTSIDE RECORDS SUMMARY | 2024-03-25 08:23 | XMS_ITS | Continuity of Care Document ---
Author Name [facility] Organization [facility] Care Team Providers Care Operational Assistant Name Role Phone [facility] Unavailable Unavailable Problems Combined list of problems from Department of Defense and Veterans Affairs facilities. It does not include entries that were removed or entered in error. Problem Status Onset Date Problem Type Date of Resolution Comments Source Repair of Retinal Detachment from Previous Surgery/Procedure Active 997 Condition May 08, 2009 Entered By: DEAN LAMBERT RA Comment: Left Eye w/ loss of vision [facility] 6[facility]: PTCA:BS:Promus: LAD Active Condition Sep 11, 2009 Entered By: DEAN LAMBERT RA Comment: Everolimus-Elu ting Stent [facility] Appendectomy Active Condition [facility] Benign essential hypertension (SNOMED CT 3537472) Active Condition [facility] Cervical Radiculopathy (ICD-9-CM 723.4) Active Condition [facility] Coronary arteriosclerosis (SNOMED CT 80119150) Active Condition Oct 28, 2013 Entered By: HA RAMIRES Comment: sees private cardio twice yr as of SEPTEMBER 26;Oct 28, 2013 Entered By: HA RAMIRES Comment: does have occlusive disease; Stented 2010 or [facility] Frequency of Urination Active Condition May 08, 2009 Entered By: DEAN LAMBERT RA Comment: Dr Moncada: urologist: takes Detrol LA 4 mg [facility] Gastroesophageal Reflux Disorder * (ICD-9-CM 530.81) Active Condition [facility] [place] Hypercholesterolemia (SNOMED CT 02960745) Active Condition [facility] Non-toxic multinodular goiter Active Condition Sep 08, 2016 Entered By: KASH WARE Comment: Now being treated by outside provider-Dr. Randhawa who monitors nodule size with ultrasound yearly [facility] Normocytic anemia Active Condition [place] [place] Prediabetes Active Condition [facility] Repair of ruptured Musculotendinous Cuff (Eg, Rotator Cuff) Open; chronic Active Condition May 08, 2009 Entered By: DEAN LAMBERT RA Comment: 2008: Rt Rotator Cuff Repair [facility] Sleep Apnea Active Condition [facility] Surgical Arthroscopy of the Knee with Meniscectomy (Medial or Lateral) Active Condition May 08, 2009 Entered By: DEAN LAMBERT RA Comment: 1991 & 1994: Left Knee Meniscetomy [facility] Surgical Arthroscopy of the Knee with Meniscus Repair (Medial and Lateral) Active Condition May 08, 2009 Entered By: DEAN LAMBERT RA Comment: 2007: Rt Knee Menisectomy [facility] Vitamin B1 abd B12 deficiency Active Condition [facility] Diagnosis: ICD-10-CM K21.9 Gastro-esophageal reflux disease without esophagitis Active Diagnosis [facility] Diagnosis: ICD-10-CM Z00.01 Encounter for general adult medical exam w abnormal findings Active Diagnosis [facility] Diagnosis: ICD-10-CM Z63.4 Disappearance and of family member Active Diagnosis [facility] Diagnosis: ICD-10-CM R49.0 Dysphonia Active Diagnosis [facility] Diagnosis: ICD-10-CM H61.22 Impacted cerumen, left ear Active Diagnosis [facility] [place] Diagnosis: ICD-10-CM J30.89 Other allergic rhinitis Active Diagnosis [facility] Diagnosis: ICD-10-CM Z46.0 Encounter for fit/adjst of spectacles and contact lenses Active Diagnosis [facility] Diagnosis: ICD-10-CM H04.123 Dry eye syndrome of bilateral lacrimal glands [facility] Diagnosis: ICD-10-CM Z74.8 Other problems related to care provider dependency Active Diagnosis [facility] Diagnosis: ICD-10-CM F43.20 Adjustment disorder, unspecified Active Diagnosis [facility] Diagnosis: ICD-10-CM R73.03 Prediabetes Active Diagnosis [facility] Diagnosis: ICD-10-CM M25.569 Pain in unspecified knee Active Diagnosis [facility] Medications Combined list of outpatient medications from Department of Defense and Veterans Affairs facilities.Medications provided include 1) outpatient medications from the last 15 months, and 2) patient-reported medications. Medication Details Route Status Patient Instructions Prescription Expires Prescription Number Last Dispense Date Ordering Provider Order Date Order Qty Source ASPIRIN 81MG TAB,CHEWABL E CHEW ONE TABLET BY MOUTH ONCE DAILY ORAL ACTIVE Rachel CAVANAUGH 2018 IELD ATORVASTATI N CA 40MG TAB TAKE ONE-HALF TABLET BY MOUTH AT BEDTIME ORAL ACTIVE Rachel CAVANAUGH 2018 [place] CARBAMIDE PEROXIDE 6.5%/GLYCER IN SOLN,OTIC INSTILL 5 DROPS INTO THE AFFECTED EAR(S) THREE TIMES DAILY NEEDED USE FOR TWO DAYS BEFORE RN APPT [facility] (OTIC) ACTIVE 06/05/2024 [id number] [facility] [place] O 2023 15 IELD CETIRIZINE HCL 10MG TAB TAKE ONE TABLET BY MOUTH ONCE DAILY NEEDED FOR ALLERGIE S ORAL ACTIVE 06/05/2024 [id number] 4 [place] O 2023 90 IELD ISOSORBIDE MONONITRATE 30MG TAB,SA TAKE THREE TABLETS BY MOUTH ONCE DAILY ORAL ACTIVE Rachel CAVANAUGH 2018 IELD MELATONIN 5MG CAP/TAB TAKE ONE CAPSULE/ TABLET BY MOUTH AT BEDTIME NEEDED FOR INSOMNIA ORAL ACTIVE 06/05/2024 [id number] BRANNONMARK CARMICHAEL O 2023 90 IELD MENTHOL/MET HYL SALICYLATE (10-15%) LOW CONC. CREAM,TOP APPLY A THIN FILM TOPICALL Y THREE TIMES DAILY NEEDED TOPICA L ACTIVE 06/05/2024 [id number] BRANNONMARK CARMICHAEL O 2023 90 IELD METOPROLOL SUCCINATE 25MG TAB,SA TAKE ONE TABLET BY MOUTH ONCE DAILY ORAL ACTIVE Rachel CAVANAUGH 2018 IELD NITROGLYCER IN 0.4MG TAB,SUBLING UAL DISSOLVE ONE TABLET UNDER THE TONGUE EVERY 5 MINUTES NEEDED SUBLIN GUAL ACTIVE FAMILIA ROWE 2021 IELD OMEPRAZOLE 20MG CAP,EC TAKE TWO CAPSULES BY MOUTH ONCE DAILY FOR GASTROES OPHAGEAL REFLUX DISEASE ORAL ACTIVE 10/05/2024 [id number] TONY QIU [place] 2023 180 [facility] OMEPRAZOLE 20MG CAP,EC TAKE 1 CAPSULE BY MOUTH ONCE DAILY ORAL ACTIVE Rachel CAVANAUGH 2018 IELD OXYBUTYNIN CL 5MG TAB TAKE ONE TABLET BY MOUTH DAILY ORAL ACTIVE Rachel WAREIA [facility] IELD TRAMADOL HCL 50MG TAB TAKE ONE TABLET BY MOUTH TWICE DAILY NEEDED ORAL ACTIVE Rachel CAVANAUGHLENE [place] I[place] VALSARTAN 80MG TAB TAKE ONE TABLET BY MOUTH ONCE DAILY ORAL ACTIVE Rachel CAVANAUGH 2018 IELD VITAMIN B COMPLEX CAP TAKE 1 CAPSULE BY MOUTH ONCE DAILY FOR VITAMIN SUPPLEME NTATION ORAL ACTIVE 06/05/2024 [id number] [facility] 2023 100 IELD Immunizations Combined list of available immunizations from the Department of Defense and Veterans Affairs facilities. Immunization Series Date Given Administered By Site Reaction Lot Number CVX Code Drug Paster Operator Status Comments Source INFLUENZA, HIGH-DOSE, TRIVALENT, PF 2023 TIFF RAMOS RIGHT DELTO ID [id number] 135 complet ed [facility] INFLUENZA, UNSPECIFIED FORMULATION 2022 88 complet ed [facility] INFLUENZA, UNSPECIFIED FORMULATION 2021 88 complet ed [facility] INFLUENZA VACCINE, QUADRIVALENT, ADJUVANTED 2021 205 complet ed [facility] INFLUENZA VACCINE, QUADRIVALENT, ADJUVANTED 2020 205 complet ed [facility] IELD ZOSTER RECOMBINANT 2 2019 187 [facility] 2018 187 complet ed [facility] INFLUENZA, SEASONAL, INJECTABLE 2018 141 complet ed [facility] INFLUENZA, SEASONAL, INJECTABLE 2017 141 complet ed [facility] INFLUENZA, SEASONAL, INJECTABLE 2016 141 complet ed Outside Provider [facility] DTAP 2015 20 complet ed Site: Right Deltoid [place] DTAP, UNSPECIFIED FORMULATION 2015 107 complet ed [place] FLU,3 YRS (HISTORICAL) 2014 88 complet ed approcx mo [facility] FLU,3 YRS (HISTORICAL) 2014 88 complet ed [facility] PNEUMOCOCCAL CONJUGATE PCV 13 2014 133 complet ed [place] FLU,3 YRS (HISTORICAL) 2013 88 complet ed local vet standdown [facility] TDAP 2013 115 complet ed per [facility] record [facility] FLU,3 YRS (HISTORICAL) 2012 88 complet ed [facility] TD(ADULT) UNSPECIFIED FORMULATION 2012 139 complet ed Pt received it after stepping on a nail. [facility] FLU,3 YRS (HISTORICAL) 2012 88 complet ed ok [facility] PNEUMOCOCCAL POLYSACCHARID E PPV23 2011 33 complet ed [facility] FLU,3 YRS (HISTORICAL) 2011 88 complet ed [facility] TD(ADULT) UNSPECIFIED FORMULATION 2011 139 complet ed [facility] FLU,3 YRS (HISTORICAL) 2010 88 complet ed Site: Left Deltoid [place] ZOSTER LIVE 2010 MARLINE SUNG 121 complet ed [place] FLU,3 YRS (HISTORICAL) 2009 88 complet ed [facility] NOVEL INFLUENZA-H1N 1-09, ALL FORMULATIONS 2009 128 complet ed [employer] [place] FLU,3 YRS (HISTORICAL) 2008 88 complet ed works there [facility] Results Combined list of recent chemistry, hematology and other laboratory results from Department of Defense and Veterans Affairs, ranging from 15 months to all on record, depending upon the facility. Order Name Results Value Reference Range Date Interpretation Specimen Comments Source BASIC METABOLI C PANEL (fasting ) UREA NITROGEN [MASS/VOLU ME] IN SERUM OR PLASMA 9 mg/dL 7 - 25 02/02 Specimen Type: SERUM No comment entered. Ordering Provider: NORMA SOUTH Report Released Date/Time: Jan 21, 2024 02:40 PM Reporting [facility] [address] [facility] [address] Performing Lab: [address] [address] [facility] BASIC METABOLI C PANEL (fasting ) GLUCOSE [MASS/VOLU ME] IN SERUM OR PLASMA 103 mg/dL 65 - 100 02/02 H Specimen Type: SERUM No comment entered. Ordering Provider: NORMA SOUTH Report Released Date/Time: Jan 21, 2024 02:40 PM Reporting Lab: [facility] [address] [facility] [address] Performing Lab: [facility] [address] [facility] [address] [facility] BASIC METABOLI C PANEL (fasting ) SODIUM [MOLES/VOL UME] IN SERUM OR PLASMA 138 mmol/L 135 - 145 02/02 Specimen Type: SERUM No comment entered. Ordering Provider: NORMA SOUTH Report Released Date/Time: Jan 21, 2024 02:40 PM Reporting Lab[facility] [address] [facility] [address] Performing Lab: [facility] [address] [facility] BASIC METABOLI C PANEL (fasting ) POTASSIUM [MOLES/VOL UME] IN SERUM OR PLASMA 4.6 mmol/L 3.5 - 5.0 02/02 Specimen Type: SERUM No comment entered. Ordering Provider: NORMA SOUTH Report Released Date/Time: Jan 21, 2024 02:40 PM Reporting Lab: [facility] [address] [facility] [address] Performing Lab: [facility] [address] [facility] [address] [facility] BASIC METABOLI C PANEL (fasting ) CHLORIDE [MOLES/VOL UME] IN SERUM OR PLASMA 104 mmol/L 100 - 110 02/02 Specimen Type: SERUM No comment entered. Ordering Provider: NORMA SOUTH Report Released Date/Time: Jan 21, 2024 02:40 PM Reporting Lab: [facility] [address] [facility] [address] Performing Lab: [facility] [address] [facility] [address] [facility] BASIC METABOLI C PANEL (fasting ) CARBON DIOXIDE, TOTAL [MOLES/VOL UME] IN SERUM OR PLASMA 23 meq/L 20 - 30 02/02 Specimen Type: SERUM No comment entered. Ordering Provider: NORMA SOUTH Report Released Date/Time: Jan 21, 2024 02:40 PM Reporting Lab: [facility] [address] [facility] [address] Performing Lab: [facility] [address] [address] [facility] [facility] BASIC METABOLI C PANEL (fasting ) CREATININE [MASS/VOLU ME] IN SERUM OR PLASMA 0.78 mg/dL 0.50 - 1.40 02/02 Specimen Type: SERUM No comment entered. Ordering Provider: NORMA SOUTH Report Released Date/Time: Jan 21, 2024 02:40 PM Reporting Lab: [facility] [address] [facility] [address] Performing Lab: [facility] [address] [facility] [address] [facility] BASIC METABOLI C PANEL (fasting ) GLOMERULAR FILTRATION RATE/1.73 SQ M.PREDICTE D [VOLUME RATE/AREA] IN SERUM, PLASMA OR BLOOD BY CREATININE -BASED FORMULA (CKD-EPI 2020) 89 mL/min 60 02/02 Specimen Type: SERUM No comment entered. Ordering Provider: NORMA SOUTH Report Released Date/Time: Jan 21, 2024 02:40 PM Reporting Lab: [facility] [place] [facility] [address] [facility] [address] Performing Lab: [facility] [place] [facility] [address] [facility] [address] [facility] [facility] CBC AND DIFF (AUTO) LEUKOCYTES [#/VOLUME] IN BLOOD BY AUTOMATED COUNT 7.76 10*3/uL 4.50 - 11.00 02/02 Specimen Type: BLOOD No comment entered. Ordering Provider: NORMA SOUTH Report Released Date/Time: Jan 21, 2024 02:40 PM Reporting Lab: [facility] [place] [facility] [address] [facility] [address] Performing Lab: [facility] [place] [facility] [address] [facility] [address] [facility] [place] [facility] CBC AND DIFF (AUTO) ERYTHROCYT ES [#/VOLUME] IN BLOOD BY AUTOMATED COUNT 4.70 10*6/uL 4.23 - 5.66 02/02 Specimen Type: BLOOD No comment entered. Ordering Provider: NORMA SOUTH Report Released Date/Time: Jan 21, 2024 02:40 PM Reporting Lab: [facility] [place] [facility] [address] [facility] [address] Performing Lab: [facility] [place] [facility] [address] [facility] [address] [facility] [place] [facility] CBC AND DIFF (AUTO) HEMOGLOBIN [MASS/VOLU ME] IN BLOOD 13.9 g/dL 12.8 - 17 02/02 Specimen Type: BLOOD No comment entered. Ordering Provider: NORMA SOUTH Report Released Date/Time: Jan 21, 2024 02:40 PM Reporting Lab: [facility] [place] [facility] [address] [facility] [address] Performing Lab: [facility] [place] [facility] [address] [facility] [address] [facility] [place] [facility] CBC AND DIFF (AUTO) HEMATOCRIT [VOLUME FRACTION] OF BLOOD BY AUTOMATED COUNT 42.4 39.2 - 50.4 02/02 Specimen Type: BLOOD No comment entered. Ordering Provider: NORMA SOUTH Report Released Date/Time: Jan 21, 2024 02:40 PM Reporting Lab: [facility] [place] [facility] [address] [facility] [address] Performing Lab: [facility] [place] [facility] [address] [facility] [address] [facility] [place] [facility] CBC AND DIFF (AUTO) MCV [ENTITIC VOLUME] BY AUTOMATED COUNT 90.2 fL 82 - 99 02/02 Specimen Type: BLOOD No comment entered. Ordering Provider: NORMA SOUTH Report Released Date/Time: Jan 21, 2024 02:40 PM Reporting Lab: [facility] [place] [facility] [address] [facility] [address] Performing Lab: [facility] [place] [place] [facility] [address] [facility] [address] [facility] CBC AND DIFF (AUTO) MCHC [MASS/VOLU ME] BY AUTOMATED COUNT 32.8 g/dL 30.8 - 35.1 02/02 Specimen Type: BLOOD No comment entered. Ordering Provider: NORMA SOUTH Report Released Date/Time: Jan 21, 2024 02:40 PM Reporting Lab: [facility] [place] [facility] [address] [facility] [address] Performing Lab: [facility] [place] [address] [address] [facility] [place] [facility] CBC AND DIFF (AUTO) PLATELETS [#/VOLUME] IN BLOOD BY AUTOMATED COUNT 288 10*3/uL 140 - 360 02/02 Specimen Type: BLOOD No comment entered. Ordering Provider: NORMA SOUTH Report Released Date/Time: Jan 21, 2024 02:40 PM Reporting Lab: [facility] [facility] [address] [facility] [address] Performing Lab: [facility] [place] [facility] [address] [facility] [address] [facility] CBC AND DIFF (AUTO) ERYTHROCYT E DISTRIBUTI ON WIDTH [RATIO] BY AUTOMATED COUNT 12.4 12.0 - 16.0 02/02 Specimen Type: BLOOD No comment entered. Ordering Provider: NORMA SOUTH Report Released Date/Time: Jan 21, 2024 02:40 PM Reporting Lab: [facility] [address] [facility] [address] Performing Lab: [facility] [place] [facility] [address] [facility] [address] [facility] CBC AND DIFF (AUTO) MONOCYTES [#/VOLUME] IN BLOOD BY AUTOMATED COUNT 0.63 10*3/uL 0.30 - 1.10 02/02 Specimen Type: BLOOD No comment entered. Ordering Provider: NORMA SOUTH Report Released Date/Time: Jan 21, 2024 02:40 PM Reporting Lab: [facility] [address] [facility] [address] Performing Lab: [facility] [place] [facility] [address] [facility] [address] [facility] CBC AND DIFF (AUTO) MCH [ENTITIC MASS] BY AUTOMATED COUNT 29.6 pg 26.2 - 32.6 02/02 Specimen Type: BLOOD No comment entered. Ordering Provider: NORMA SOUTH Report Released Date/Time: Jan 21, 2024 02:40 PM Reporting Lab: [facility] [facility] [address] [facility] [address] Performing Lab: [facility] [place] [facility] [address] [facility] [address] [facility] CBC AND DIFF (AUTO) NEUTROPHIL S/100 LEUKOCYTES IN BLOOD BY AUTOMATED COUNT 64.9 43.7 - 75.8 02/02 Specimen Type: BLOOD No comment entered. Ordering Provider: NORMA SOUTH Report Released Date/Time: Jan 21, 2024 02:40 PM Reporting Lab: [facility] [facility] [address] [facility] [address] Performing Lab: [facility] [place] [facility] [address] [facility] [address] [facility] CBC AND DIFF (AUTO) LYMPHOCYTE S/100 LEUKOCYTES IN BLOOD BY AUTOMATED COUNT 24.4 14.0 - 42.3 02/02 Specimen Type: BLOOD No comment entered. Ordering Provider: NORMA SOUTH Report Released Date/Time: Jan 21, 2024 02:40 PM Reporting Lab: [facility] [place] [address] [address] Performing Lab: [facility] [place] [address] [address] [facility] CBC AND DIFF (AUTO) MONOCYTES/ 100 LEUKOCYTES IN BLOOD BY AUTOMATED COUNT 8.1 5.1 - 13.7 02/02 Specimen Type: BLOOD No comment entered. Ordering Provider: NORMA SOUTH Report Released Date/Time: Jan 21, 2024 02:40 PM Reporting Lab: [facility] [address] [address] Performing Lab: [facility] [address] [address] [facility] CBC AND DIFF (AUTO) EOSINOPHIL S/100 LEUKOCYTES IN BLOOD BY AUTOMATED COUNT 1.3 0.4 - 6.8 02/02 Specimen Type: BLOOD No comment entered. Ordering Provider: NORMA SOUTH Report Released Date/Time: Jan 21, 2024 02:40 PM Reporting Lab: [facility] [address] [address] Performing Lab: [facility] [address] [address] [facility] CBC AND DIFF (AUTO) BASOPHILS/ 100 LEUKOCYTES IN BLOOD BY AUTOMATED COUNT 1.0 0.1 - 2.0 02/02 Specimen Type: BLOOD No comment entered. Ordering Provider: NORMA SOUTH Report Released Date/Time: Jan 21, 2024 02:40 PM Reporting Lab: [facility] [address] [facility] [address] Performing Lab: [facility] [address] [facility] [address] [facility] CBC AND DIFF (AUTO) NEUTROPHIL S [#/VOLUME] IN BLOOD BY AUTOMATED COUNT 5.04 10*3/uL 2.20 - 7.60 02/02 Specimen Type: BLOOD No comment entered. Ordering Provider: NORMA SOUTH Report Released Date/Time: Jan 21, 2024 02:40 PM Reporting Lab: [facility] [address] [facility] [address] Performing Lab: [facility] [address] [facility] [address] [facility] CBC AND DIFF (AUTO) LYMPHOCYTE S [#/VOLUME] IN BLOOD BY AUTOMATED COUNT 1.89 10*3/uL 1.00 - 3.20 02/02 Specimen Type: BLOOD No comment entered. Ordering Provider: NORMA SOUTH Report Released Date/Time: Jan 21, 2024 02:40 PM Reporting Lab: [facility] [address] [facility] [address] Performing Lab: [facility] [address] [facility] [address] [facility] CBC AND DIFF (AUTO) EOSINOPHIL S [#/VOLUME] IN BLOOD BY AUTOMATED COUNT 0.10 10*3/uL 0.03 - 0.44 02/02 Specimen Type: BLOOD No comment entered. Ordering Provider: NORMA SOUTH Report Released Date/Time: Jan 21, 2024 02:40 PM Reporting Lab: [facility] [address] [facility] [address] Performing Lab: [facility] [place] [facility] [address] [facility] [address] [facility] CBC AND DIFF (AUTO) BASOPHILS [#/VOLUME] IN BLOOD BY AUTOMATED COUNT 0.08 10*3/uL 0.01 - 0.13 02/02 Specimen Type: BLOOD No comment entered. Ordering Provider: NORMA SOUTH Report Released Date/Time: Jan 21, 2024 02:40 PM Reporting Lab: [facility] [place] [facility] [address] [facility] [address] Performing Lab: [facility] [place] [facility] [address] [facility] [address] [facility] CBC AND DIFF (AUTO) IMMATURE GRANULOCYT ES/100 LEUKOCYTES IN BLOOD BY AUTOMATED COUNT 0.3 0.0 - 0.7 02/02 Specimen Type: BLOOD No comment entered. Ordering Provider: NORMA SOUTH Report Released Date/Time: Jan 21, 2024 02:40 PM Reporting Lab: [facility] [place] [address] [facility] [address] Performing Lab: [facility] [place] [facility] [address] [facility] [address] [facility] [facility] CBC AND DIFF (AUTO) IMMATURE GRANULOCYT ES [#/VOLUME] IN BLOOD 0.02 10*3/uL 0.00 - 0.06 02/02 Specimen Type: BLOOD No comment entered. Ordering Provider: NORMA SOUTH Report Released Date/Time: Jan 21, 2024 02:40 PM Reporting Lab: [facility] [place] [facility] [place] [address] [facility] [address] Performing Lab: [facility] [place] [facility] [place] [address] [facility] [address] [facility] [place] [facility] CBC AND DIFF (AUTO) NRBC % 0.0 0.0 - 0.0 02/02 Specimen Type: BLOOD No comment entered. Ordering Provider: NORMA SOUTH Report Released Date/Time: Jan 21, 2024 02:40 PM Reporting Lab: [facility] [address] [facility] [phone] Performing Lab: [address] [address] [facility] CBC AND DIFF (AUTO) NRBC, ABS 0.00 10*3/uL 0.00 - 0.00 02/02 Specimen Type: BLOOD No comment entered. Ordering Provider: NORMA SOUTH Report Released Date/Time: Jan 21, 2024 02:40 PM Reporting Lab: [facility] [address] [facility] [address] Performing Lab: [address] [address] [facility] HEMOGLOB IN A1C PANEL HEMOGLOBIN A1C/HEMOGL OBIN.TOTAL IN BLOOD BY HPLC 5.7 4.0 - 5.6 02/02 H Specimen Type: BLOOD Comment: Values obtained from A1C measurement s can vary. For atypical A1C assays, a reported value of 7.0 could actually be between 6.72 and 7.28 if measured by a reference method. A reported value of 9.0 could actually be between 8.73 and 9.27. Ref: http://[email or web address]/[place] Pdata.asp Ordering Provider: NORMA SOUTH Report Released Date/Time: Jan 21, 2024 02:40 PM Reporting Lab: [address] [address] Performing Lab: [address] [address] [facility] LIPID PANEL FASTING CHOLESTERO L [MASS/VOLU ME] IN SERUM OR PLASMA 182 mg/dL 02/02 Specimen Type: SERUM No comment entered. Ordering Provider: NORMA SOUTH Report Released Date/Time: Jan 21, 2024 02:40 PM Reporting Lab: [facility] [place] [facility] [address] [facility] [address] Performing Lab: [facility] [place] [facility] [address] [facility] [address] [facility] [place] [facility] LIPID PANEL FASTING TRIGLYCERI DE [MASS/VOLU ME] IN SERUM OR PLASMA 133 mg/dL 0 - 150 02/02 Specimen Type: SERUM No comment entered. Ordering Provider: NORMA SOUTH Report Released Date/Time: Jan 21, 2024 02:40 PM Reporting Lab: [facility] [place] [facility] [address] [facility] [address] Performing Lab: [facility] [place] [facility] [address] [facility] [address] [facility]N [facility]USE [facility] LIPID PANEL FASTING CHOLESTERO L IN LDL [MASS/VOLU ME] IN SERUM OR PLASMA BY CALCULADARAO N 109 mg/dL 0 - 129 02/02 Specimen Type: SERUM No comment entered. Ordering Provider: NORMA SOUTH Report Released Date/Time: Jan 21, 2024 02:40 PM Reporting Lab: [facility] [place] [facility] [address] [facility] [address] Performing Lab: [facility] [address] [facility] [address] [facility] W[facility]N [facility]ITALUSE [facility] LIPID PANEL FASTING CHOLESTERO L.TOTAL/CH OLESTEROL IN HDL [MASS RATIO] IN SERUM OR PLASMA 4.0 02/02 Specimen Type: SERUM No comment entered. Ordering Provider: NORMA SOUTH Report Released Date/Time: Jan 21, 2024 02:40 PM Reporting Lab: [facility] [place] [facility] [address] [facility] [address] Performing Lab: [facility] [place] [facility] [address] [facility] [address] [facility] [place] [facility] LIPID PANEL FASTING CHOLESTERO L IN HDL [MASS/VOLU ME] IN SERUM OR PLASMA 46 mg/dL 40 - 60 02/02 Specimen Type: SERUM No comment entered. Ordering Provider: NORMA SOUTH Report Released Date/Time: Jan 21, 2024 02:40 PM Reporting Lab: [facility] [place] [facility] [address] [facility] [address] Performing Lab: [facility] [place] [facility] [address] [facility] [address] [facility] [place] [facility] LIVER FUNCTION PROTEIN [MASS/VOLU ME] IN SERUM OR PLASMA 6.7 g/dL 6.0 - 8.3 02/02 Specimen Type: SERUM No comment entered. Ordering Provider: NORMA SOUTH Report Released Date/Time: Jan 21, 2024 02:40 PM Reporting Lab: [facility] [place] [facility] [address] [facility] [address] Performing Lab: [facility] [place] [facility] [address] [facility] [address] [facility] [place] [facility] LIVER FUNCTION ALBUMIN [MASS/VOLU ME] IN SERUM OR PLASMA 3.5 g/dL 3.5 - 5.0 02/02 Specimen Type: SERUM No comment entered. Ordering Provider: NORMA SOUTH Report Released Date/Time: Jan 21, 2024 02:40 PM Reporting Lab: [facility] [place] [facility] [address] [facility] [address] Performing Lab: [facility] [place] [facility] [address] [facility] [address] [facility] [place] [facility] LIVER FUNCTION ALKALINE PHOSPHATAS E [ENZYMATIC ACTIVITY/V OLUME] IN SERUM OR PLASMA 135 U/L 40 - 150 02/02 Specimen Type: SERUM No comment entered. Ordering Provider: NORMA SOUTH Report Released Date/Time: Jan 21, 2024 02:40 PM Reporting Lab: [facility] [place] [facility] [address] [facility] [address] Performing Lab: [facility] [place] [facility] [address] [facility] [address] [facility] [place] [facility] LIVER FUNCTION ASPARTATE AMINOTRANS FERASE [ENZYMATIC ACTIVITY/V OLUME] IN SERUM OR PLASMA 16 U/L 5 - 34 02/02 Specimen Type: SERUM No comment entered. Ordering Provider: NORMA SOUTH Report Released Date/Time: Jan 21, 2024 02:40 PM Reporting Lab: [facility] [address] [address] Performing Lab: [facility]ITALRMOUNTAIN [facility]IEW HOSPITALN [facility]USE[address] [address] [facility]ITALRMOUNT[facility]ITALN [facility]USE [facility] LIVER FUNCTION ALANINE AMINOTRANS FERASE [ENZYMATIC ACTIVITY/V OLUME] IN SERUM OR PLASMA 14 U/L 02/02 Specimen Type: SERUM No comment entered. Ordering Provider: NORMA SOUTH Report Released Date/Time: Jan 21, 2024 02:40 PM Reporting Lab: [address] [address] Performing Lab: [facility]PITALRMOUNTAIN VIEW HOSPITALN [address] [address] [facility] LIVER FUNCTION BILIRUBIN. TOTAL [MASS/VOLU ME] IN SERUM OR PLASMA 1.1 mg/dL 0.2 - 1.2 02/02 Specimen Type: SERUM No comment entered. Ordering Provider: NORMA SOUTH Report Released Date/Time: Jan 21, 2024 02:40 PM Reporting Lab: [facility] [address] [address] Performing Lab: [facility]PITALRMOUNTAIN VIEW HOSPITALN [facility]OSPITALUSE[address] [address] [facility] MICROSCO PIC AUTOMATE D, URINE LEUKOCYTES [#/AREA] IN URINE SEDIMENT BY MICROSCOPY HIGH POWER FIELD 0-5/[HPF ] 0 - 5 02/02 Specimen Type: URINE Comment: If Glucose = >500 and Ketones are positive, please alert the Physician. Ordering Provider: NORMA SOUTH Report Released Date/Time: Jan 21, 2024 02:40 PM Reporting Lab: [facility]N [address] [address] Performing Lab: [facility] [place] [facility] [address] [facility] [address] [facility] [place] [facility] MICROSCO PIC AUTOMATE D, URINE BACTERIA [#/AREA] IN URINE SEDIMENT BY MICROSCOPY HIGH POWER FIELD 1+/[HPF] 02/02 Specimen Type: URINE Comment: If Glucose = >500 and Ketones are positive, please alert the Physician. Ordering Provider: NORMA SOUTH Report Released Date/Time: Jan 21, 2024 02:40 PM Reporting Lab: [facility] [place] [facility] [address] [facility] [address] Performing Lab: [facility] [place] [facility] [address] [facility] [address] [facility] [place] [facility] MICROSCO PIC AUTOMATE D, URINE MUCUS [#/AREA] IN URINE SEDIMENT BY MICROSCOPY LOW POWER FIELD MANY/[LP F] 02/02 Specimen Type: URINE Comment: If Glucose = >500 and Ketones are positive, please alert the Physician. Ordering Provider: NORMA SOUTH Report Released Date/Time: Jan 21, 2024 02:40 PM Reporting Lab: [facility] [place] [facility] [address] [facility] [address] Performing Lab: [facility] [place] [facility] [address] [facility] [address] [facility] [place] [facility] MICROSCO PIC AUTOMATE D, URINE HYALINE CASTS [#/AREA] IN URINE SEDIMENT BY MICROSCOPY LOW POWER FIELD 2-4/[LPF ] 0 - 2 02/02 Specimen Type: URINE Comment: If Glucose = >500 and Ketones are positive, please alert the Physician. Ordering Provider: NORMA SOUTH Report Released Date/Time: Jan 21, 2024 02:40 PM Reporting Lab: [facility] [place] [facility] [address] [facility] [address] Performing Lab: [facility] [place] [facility] [address] [facility] [address] [facility] [place] [facility] MICROSCO PIC AUTOMATE D, URINE ERYTHROCYT ES [#/AREA] IN URINE SEDIMENT BY MICROSCOPY HIGH POWER FIELD 0-2/[HPF ] 0 - 3 02/02 Specimen Type: URINE Comment: If Glucose = >500 and Ketones are positive, please alert the Physician. Ordering Provider: NORMA SOUTH Report Released Date/Time: Jan 21, 2024 02:40 PM Reporting Lab: [facility]N [facility]ITALUSE[address] [address] Performing Lab: [facility]OSPITALRCRESTWOOD MEDICAL CENTERTRN [facility]OSPITALUSER[facility] [address] [facility] [address] [facility]N [facility] MICROSCO PIC AUTOMATE D, URINE EPITHELIAL CELLS.SQUA MOUS [#/AREA] IN URINE SEDIMENT BY MICROSCOPY HIGH POWER FIELD FEW/[HPF ] 02/02 Specimen Type: URINE Comment: If Glucose = >500 and Ketones are positive, please alert the Physician. Ordering Provider: NORMA SOUTH Report Released Date/Time: Jan 21, 2024 02:40 PM Reporting Lab: [facility]ITALRMOUNTAIN VIEW HOSPITALN [facility]OSPITALUSE[address] [address] Performing Lab: [facility]PITALRMOUNTAIN VIEW HOSPITALN [facility]OSPITALUSE[address] [address] [facility]N [facility] TSH THYROTROPI N [UNITS/VOL UME] IN SERUM OR PLASMA 1.18 u[IU]/mL 0.35 - 5.00 02/02 Specimen Type: SERUM No comment entered. Ordering Provider: NORMA SOUTH Report Released Date/Time: Jan 21, 2024 02:40 PM Reporting Lab: [facility]PITALRMOUNTAIN VIEW HOSPITALN [facility]ITALUSE[address] [address] Performing Lab: [facility]ITALRMOUNTAIN VIEW HOSPITALN [facility]ITALUSE[address] [address] [facility] URINALYS IS COLOR OF URINE Yellow 02/02 Specimen Type: URINE Comment: If Glucose = >500 and Ketones are positive, please alert the Physician. Ordering Provider: NORMA SOUTH Report Released Date/Time: Jan 21, 2024 02:40 PM Reporting Lab: [facility] [place] [facility] [address] [facility] [address] Performing Lab: [facility] [place] [facility] [address] [facility] [address] [facility] [place] [facility] URINALYS IS APPEARANCE OF URINE Turbid 02/02 Specimen Type: URINE Comment: If Glucose = >500 and Ketones are positive, please alert the Physician. Ordering Provider: NORMA SOUTH Report Released Date/Time: Jan 21, 2024 02:40 PM Reporting Lab: [facility] [place] [facility] [address] [facility] [address] Performing Lab: [facility] [place] [facility] [address] [facility] [address] [facility]ITALRL [facility] [place] [facility] URINALYS IS GLUCOSE [MASS/VOLU ME] IN URINE Normalmg /dL 02/02 Specimen Type: URINE Comment: If Glucose = >500 and Ketones are positive, please alert the Physician. Ordering Provider: NORMA SOUTH Report Released Date/Time: Jan 21, 2024 02:40 PM Reporting Lab: [facility]ITALRL [facility] [place] [facility] [address] [facility] [address] Performing Lab: [facility] [place] [facility] [address] [facility] [address] [facility]ITALRL [facility] [place] [facility] URINALYS IS KETONES [MASS/VOLU ME] IN URINE BY TEST STRIP NEGATIVE mg/dL 02/02 Specimen Type: URINE Comment: If Glucose = >500 and Ketones are positive, please alert the Physician. Ordering Provider: NORMA SOUTH Report Released Date/Time: Jan 21, 2024 02:40 PM Reporting Lab: [facility] [place] [facility] [address] [facility] [address] Performing Lab: [facility] [place] [facility] [address] [facility] [address] [facility] [place] [facility] URINALYS IS ERYTHROCYT ES [PRESENCE] IN URINE SEDIMENT BY LIGHT MICROSCOPY NEGATIVE mg/dL 02/02 Specimen Type: URINE Comment: If Glucose = >500 and Ketones are positive, please alert the Physician. Ordering Provider: NORMA SOUTH Report Released Date/Time: Jan 21, 2024 02:40 PM Reporting Lab: [facility] [place] [facility] [address] [facility] [address] Performing Lab: [facility] [place] [facility] [address] [facility] [address] [facility]ITALRL [facility] [place] [facility] URINALYS IS PROTEIN [MASS/VOLU ME] IN URINE BY TEST STRIP 20 mg/dL 02/02 Specimen Type: URINE Comment: If Glucose = >500 and Ketones are positive, please alert the Physician. Ordering Provider: NORMA SOUTH Report Released Date/Time: Jan 21, 2024 02:40 PM Reporting Lab: [facility]ITALRL [facility] [place] [facility] [address] [facility] [address] Performing Lab: [facility] [place] [facility] [address] [facility] [address] [facility]ITALRL [facility] [place] [facility] URINALYS IS NITRITE [PRESENCE] IN URINE NEGATIVE mg/dL 02/02 Specimen Type: URINE Comment: If Glucose = >500 and Ketones are positive, please alert the Physician. Ordering Provider: NORMA SOUTH Report Released Date/Time: Jan 21, 2024 02:40 PM Reporting Lab: [facility] [place] [facility] [address] [facility] [address] Performing Lab: [facility] [place] [facility] [address] [facility] [address] [facility]RL [facility] [place] [facility] URINALYS IS BILIRUBIN. TOTAL [PRESENCE] IN URINE NEGATIVE mg/dL 02/02 Specimen Type: URINE Comment: If Glucose = >500 and Ketones are positive, please alert the Physician. Ordering Provider: NORMA SOUTH Report Released Date/Time: Jan 21, 2024 02:40 PM Reporting Lab: [facility]RL [facility] [place] [facility] [address] [facility] [address] Performing Lab: [facility] [address] [facility] [address] [facility] [address] [facility]OSPITALUSE [facility] URINALYS IS SPECIFIC GRAVITY OF URINE BY REFRACTOME TRY 1.024 1.016 - 1.022 02/02 H Specimen Type: URINE Comment: If Glucose = >500 and Ketones are positive, please alert the Physician. Ordering Provider: NORMA SOUTH Report Released Date/Time: Jan 21, 2024 02:40 PM Reporting Lab: [facility]ITALN [facility] [address] [facility] [address] Performing Lab: [address] [address] [facility]ENTERUSE [facility] URINALYS IS PH OF URINE BY TEST STRIP 5.5 5.0 - 9.0 02/02 Specimen Type: URINE Comment: If Glucose = >500 and Ketones are positive, please alert the Physician. Ordering Provider: NORMA SOUTH Report Released Date/Time: Jan 21, 2024 02:40 PM Reporting Lab: [facility]N [facility]ITALUSE[address] [address] Performing Lab: [facility]N [facility]ITALUSE[address] [address] [facility] [address] [facility]OSPITALUSE [facility] URINALYS IS UROBILINOG EN [MASS/VOLU ME] IN URINE BY TEST STRIP Normalmg /dL <2.0 - 2.0 02/02 Specimen Type: URINE Comment: If Glucose = >500 and Ketones are positive, please alert the Physician. Ordering Provider: NORMA SOUTH Report Released Date/Time: Jan 21, 2024 02:40 PM Reporting Lab: [facility]N [facility]ITALUSE[address] [address] Performing Lab: [facility]N [facility]ITALUSE[address] [address] [facility] [facility]ITALUSE [facility] URINALYS IS LEUKOCYTE ESTERASE [PRESENCE] IN URINE BY TEST STRIP NEGATIVE 02/02 Specimen Type: URINE Comment: If Glucose = >500 and Ketones are positive, please alert the Physician. Ordering Provider: NORMA SOUTH Report Released Date/Time: Jan 21, 2024 02:40 PM Reporting Lab: [facility] [place] [facility] [address] [facility] [address] Performing Lab: [facility] [place] [facility] [address] [facility] [address] [facility] [place] [facility] CBC LEUKOCYTES [#/VOLUME] IN BLOOD BY AUTOMATED COUNT 6.18 10*3/uL 4.50 - 11.00 03/26 Specimen Type: BLOOD No comment entered. Ordering Provider: NORMA SOUTH Report Released Date/Time: Oct 31, 2022 11:19 AM Reporting Lab: [facility] [place] [facility] [address] [facility] [address] Performing Lab: [facility] [place] [facility] [address] [facility] [address] [facility] [place] [facility] CBC ERYTHROCYT ES [#/VOLUME] IN BLOOD BY AUTOMATED COUNT 4.70 10*6/uL 4.23 - 5.66 03/26 Specimen Type: BLOOD No comment entered. Ordering Provider: NORMA SOUTH Report Released Date/Time: Oct 31, 2022 11:19 AM Reporting Lab: [facility] [place] [facility] [address] [facility] [address] Performing Lab: [facility] [place] [facility] [address] [facility] [address] [facility] [place] [facility] CBC HEMOGLOBIN [MASS/VOLU ME] IN BLOOD 14.2 g/dL 12.8 - 17 03/26 Specimen Type: BLOOD No comment entered. Ordering Provider: NORMA SOUTH Report Released Date/Time: Oct 31, 2022 11:19 AM Reporting Lab: [facility] [place] [facility] [address] [facility] [address] Performing Lab: [facility] [place] [facility] [address] [facility] [address] [facility] [place] [facility] CBC HEMATOCRIT [VOLUME FRACTION] OF BLOOD BY AUTOMATED COUNT 42.5 39.2 - 50.4 03/26 Specimen Type: BLOOD No comment entered. Ordering Provider: NORMA SOUTH Report Released Date/Time: Oct 31, 2022 11:19 AM Reporting Lab: [facility] [place] [facility] [address] [facility] [address] Performing Lab: [facility] [place] [facility] [address] [facility] [address] [facility] [place] [facility] CBC MCV [ENTITIC VOLUME] BY AUTOMATED COUNT 90.4 fL 82 - 99 03/26 Specimen Type: BLOOD No comment entered. Ordering Provider: NORMA SOUTH Report Released Date/Time: Oct 31, 2022 11:19 AM Reporting Lab: [facility] [place] [facility] [address] [facility] [address] Performing Lab: [facility] [place] [facility] [address] [facility] [address] [facility] [place] [facility] CBC MCHC [MASS/VOLU ME] BY AUTOMATED COUNT 33.4 g/dL 30.8 - 35.1 03/26 Specimen Type: BLOOD No comment entered. Ordering Provider: NORMA SOUTH Report Released Date/Time: Oct 31, 2022 11:19 AM Reporting Lab: [facility] [place] [facility] [address] [facility] [address] Performing Lab: [facility] [place] [facility] [address] [facility] [address] [facility] [place] [facility] CBC PLATELETS [#/VOLUME] IN BLOOD BY AUTOMATED COUNT 207 10*3/uL 140 - 360 03/26 Specimen Type: BLOOD No comment entered. Ordering Provider: NORMA SOUTH Report Released Date/Time: Oct 31, 2022 11:19 AM Reporting Lab: [facility] [place] [facility] [address] [facility] [address] Performing Lab: [facility] [place] [address] [address] [facility] CBC ERYTHROCYT E DISTRIBUTI ON WIDTH [RATIO] BY AUTOMATED COUNT 13.1 12.0 - 16.0 03/26 Specimen Type: BLOOD No comment entered. Ordering Provider: NORMA SOUTH Report Released Date/Time: Oct 31, 2022 11:19 AM Reporting Lab: [facility] [address] [facility] [address] Performing Lab: [facility] [address] [facility] [address] [facility] CBC MCH [ENTITIC MASS] BY AUTOMATED COUNT 30.2 pg 26.2 - 32.6 03/26 Specimen Type: BLOOD No comment entered. Ordering Provider: NORMA SOUTH Report Released Date/Time: Oct 31, 2022 11:19 AM Reporting Lab: [facility] [address] [facility] [address] Performing Lab: [facility] [address] [facility] [address] [facility] HEMOGLOB IN A1C PANEL HEMOGLOBIN A1C/HEMOGL OBIN.TOTAL IN BLOOD BY HPLC 5.6 4.0 - 5.6 03/26 Specimen Type: BLOOD Comment: Values obtained from A1C measurement s can vary. For atypical A1C assays, a reported value of 7.0 could actually be between 6.72 and 7.28 if measured by a reference method. A reported value of 9.0 could actually be between 8.73 and 9.27. Ref: http://[email or web address]/[place] Pdata.asp Ordering Provider: NORMA SOUTH Report Released Date/Time: Oct 31, 2022 11:20 AM Reporting Lab: [address] [address] Performing Lab: [address] [address] [facility] Vital Signs Combined list of inpatient and outpatient Vital Signs from Department of Defense and Veterans Affairs, ranging from 12 months to all on record, depending upon the facility. Vital Sign Value Date Comments Source SYSTOLIC BLOOD PRESSURE 143 02/09/20 24 08:42:31 [facility] [place] [facility] DIASTOLIC BLOOD PRESSURE 71 024 08:42:31 [facility] [place] PULSE OXIMETRY 98 02/09/2024 08:42:31 [facility] WEIGHT 171 02/09/2024 08:42:31 [facility] BMI 26kg/m2 02/09/2024 08:42:31 [facility] PAIN 0 02/09/2024 08:42:31 [facility] TEMPERATURE 97.3 02/09/2024 08:42:31 [facility] PULSE 68 02/09/2024 08:42:31 [facility] RESPIRATION 16 02/09/2024 08:42:31 [facility] SYSTOLIC BLOOD PRESSURE 113 02/05/20 24 10:12:22 [facility] DIASTOLIC BLOOD PRESSURE 63 024 10:12:22 [facility] PULSE OXIMETRY 94 02/05/2024 10:12:22 [facility] WEIGHT 168.2 02/05/2024 10:12:22 [facility] BMI 26kg/m2 02/05/2024 10:12:22 [facility] PAIN 0 02/05/2024 10[facility]12:22 [facility] HEIGHT 68 02/05/2024 10:12:22 [facility] TEMPERATURE 96.9 02/05/2024 10:12:22 [facility] PULSE 52 02/05/2024 10:12:22 [facility] RESPIRATION 20 02/05/2024 10:12:22 [facility] SYSTOLIC BLOOD PRESSURE 144 10/05/19 24 10:01:48 [facility] DIASTOLIC BLOOD PRESSURE 63 024 10:01:48 [facility] PULSE OXIMETRY 97 10/05/2023 10:01:48 [facility] WEIGHT 172.5 10/05/2023 10:01:48 [facility] BMI 26kg/m2 10/05/2023 10:01:48 [facility] PAIN 0 10/05/2023 10:01:48 [facility] TEMPERATURE 97.5 10/05/2023 10:01:48 [facility] PULSE 68 10/05/2023 10:01:48 [facility] RESPIRATION 18 10/05/2023 10:01:48 [facility] SYSTOLIC BLOOD PRESSURE 137 09/07/19 09:08:08 [facility] DIASTOLIC BLOOD PRESSURE 73 024 09:08:08 [facility] PULSE OXIMETRY 96 09/07/2023 09:08:08 [facility] WEIGHT 180 09/07/2023 09:08:08 [facility] BMI 27kg/m2 09/07/2023 09:08:08 [facility] PAIN 0 09/07/2023 09:08:08 [facility] HEIGHT 68 09/07/2023 09:08:08 [facility] TEMPERATURE 96.8 09/07/2023 09:08:08 [facility] PULSE 65 09/07/2023 09:08:08 [facility] RESPIRATION 20 09/07/2023 09:08:08 [facility] SYSTOLIC BLOOD PRESSURE 124 06/05/19 24 12:01:00 [facility] DIASTOLIC BLOOD PRESSURE 76 024 12:01:00 [facility] PULSE OXIMETRY 97 06/05/2023 12:01:00 [facility] WEIGHT 173 06/05/2023 12:01:00 [facility] BMI 26kg/m2 06/05/2023 12:01:00 [facility] PAIN 0 06/05/2023 12:01:00 [facility] HEIGHT 68 06/05/2023 12:01:00 [facility] TEMPERATURE 97 06/05/2023 12:01:00 [facility] PULSE 84 06/05/2023 12:01:00 [facility] RESPIRATION 20 06/05/2023 12:01:00 [facility] Encounters Combined list of: 1) Encounters from Department of Veterans Affairs facilities going back up to thelast 18 months. 2) Encounters from the Department of Defense facilities going back up to 280 months. Location Location Details Encounter Type Encounter Number Reason For Visit Attending Provider ADM Date DC Date Status Disposition Source [facility] CANE ADJUST/FIX ED WITH TIP [id number] Diagnos is: ICD-10- CM M25.569 Pain in unspeci fied knee
BRANNON,A POLINARIO 09/29 [facility] [place] O/P EST MOD 30-39 MIN [id number] Diagnos is: ICD-10- CM R73.03 Prediab etes
BRANNON,A POLINARIO 10/31 [facility] Outpatient Encounter [id number] 11/21 [place] PT 30 MINUTES [id number] Diagnos is: ICD-10- CM F43.20 Adjustm ent disorde r, unspeci fied
VINOCOUR,J ILL M 01/29 [place] [facility] Outpatient Encounter [id number] 02/13 [facility] [place] PT 30 MINUTES [id number] Diagnos is: ICD-10- CM F43.20 Adjustm ent disorde r, unspeci fied
VINOCOUR,J ILL M 02/19 [facility] [place] O/P EST MOD 30-39 MIN [id number] Diagnos is: ICD-10- CM Z74.8 Other problem s related to care provide r depende ncy<br/ > BRANNONA POLINARIO 03/02 [facility] [place] W PT 30 MINUTES [id number] Diagnos is: ICD-10- CM Z63.4 Disappe arance and of family member< br/> VINOCOUR,J ILL M 04/01 [facility] [place] Outpatient Encounter [id number] Wendy SOUTH POLINARIO 04/02 [facility] [place] Outpatient Encounter [id number] Diagnos is: ICD-10- CM Z63.4 Disappe arance and of family member< br/> BRANNONA POLINARIO 04/02 [facility] [place] PS[place] W PT 30 MINUTES [id number] Diagnos is: ICD-10- CM Z63.4 Disappe arance and of family member< br/> VINOCOUR,J ILL M 05/13 [place] [facility] COMPRE OPH EXAM EST PT 1/> [id number] Diagnos is: ICD-10- CM H04.123 Dry eye syndrom e of bilater al lacrima l glands< br/> ROSSANA MARTELL 05/31 [facility] FIT SPECTACLES BIFOCAL [id number] Diagnos is: ICD-10- CM Z46.0 Encount er for fit/adj st of spectac les and contact lenses< br/> ROSSANA MARTELL 06/01 [facility] [place] W PT 30 MINUTES [id number] Diagnos is: ICD-10- CM Z63.4 Disappe arance and of family member< br/> VINOCOUR,J ILL M 06/04 [facility] [place] O/P EST MOD 30 MIN [id number] Diagnos is: ICD-10- CM J30.89 Other allergi c rhiniti s
BRANNON,A POLINARIO [facility] [place] [facility]OP EST JULY X REQ PHY/QHP [id number] Diagnos is: ICD-10- CM H61.22 Impacte d cerumen , left ear<br/ > ELADIO,L REJI H 06/10 [facility] [place] W PT 30 MINUTES [id number] Diagnos is: ICD-10- CM Z63.4 Disappe arance and of family member< br/> VINOCOUR,J ILL M 06/25 [place] W PT 30 MINUTES [id number] [id number] Diagnos is: ICD-10- CM Z63.4 Disappe arance and of family member< br/> VINOCOUR,J ILL M 07/23 [facility] I[facility] PSYTX W PT 30 MINUTES [id number] [id number] Diagnos is: ICD-10- CM Z63.4 Disappe arance and of family member< br/> Racehl BEYER ILL M 08/05 [facility] [facility] PSYTX W PT 30 MINUTES [id number] [id number] Diagnos is: ICD-10- CM Z63.4 Disappe arance and of family member< br/> GEMAOCORachel KIRKPATRICK ILL M 08/19 [facility] I[place] [facility] OFFICE O/P EST LOW 20 MIN [id number] [id number] Diagnos is: ICD-10- CM R49.0 Dysphon ia
BRANNON,A POLINARIO 09/06 [facility] [place] W PT 30 MINUTES [id number] Diagnos is: ICD-10- CM Z63.4 Disappe arance and of family member< br/> Rachel BEYER ILL M 09/23 [facility] [place] [facility] OFFICE O/P NEW MOD 45 MIN [id number] [id number] Diagnos is: ICD-10- CM K21.9 Gastro- esophag eal reflux disease without esophag itis
MONIQUE QIU 10/04 [facility] [place] [place] [facility] PSYTX W PT 30 MINUTES [id number] [id number] Diagnos is: ICD-10- CM Z63.4 Disappe arance and of family member< br/> Rachel BEYER ILL M 10/21 [facility] Outpatient Encounter [id number] 12/31 [facility] [place] [place] [facility] [place] [facility] Outpatient Encounter [id number] 01/06 [place] [facility] [place] [facility] [place] [facility] Outpatient Encounter [id number] 1.01/27 [facility] [place] [facility] [place] O/P EST MOD 30 MIN [id number] Diagnos is: ICD-10- CM Z00.01 Encount er for general adult medical exam w abnorma l finding s
BRANNON,A POLINARIO 02/04 [place] [facility] OFFICE O/P EST LOW 20 MIN [id number] 1. Diagnos is: ICD-10- CM K21.9 Gastro- esophag eal reflux disease without esophag itis
MONIQUE QIU [facility] [facility] Social History Combined list of available smoking, tobacco, and other social history from Department of Defense and Veterans Affairs facilities. Social History Type Response Date Comment Sour e Tobacco smoking status [facility] 09/02[facility]2022 [facility] 12/27/2020 [facility] History of tobacco use MD-TOBACCO NEVER USED 02/28/2019 [facility] History of tobacco use LIFETIME NON-TOBACCO USER 8 [facility] History of tobacco use LIFETIME NON-TOBACCO USER 7 [facility] History of tobacco use LIFETIME NON-TOBACCO USER 6 [facility] History of tobacco use LIFETIME NON-TOBACCO USER 0 [facility] Plan of Care List of future care activities from Department of [facility] Affairs facilities. Additional future care activities may be listed in the Assessment and Plan section. Date/Time Care Activity Care Activity Detail Facili ty 06/14/2024 AMBULATORY - MEDICINE AMBULATORY - MEDICI [facility] [place] [facility]
--- OUTSIDE RECORDS SUMMARY | 2024-03-25 08:23 | XMS_ITS | Encounter Summary ---
Author Name [facility] [place] Organization [facility] [place] Address [address] [place] [address] Care Team Providers Care Underwriting Director Name Role Phone RADHA SOUTH Primary Care Provider Unava ilable Insurance Providers: All historical and current Section Date Range: From patient's date of to the date document was created. This section includes the names of all active insurance providers for the patient. Insurance Provider Type of Coverage Plan Name Start of Policy Coverage End of Policy Coverage Group Number Member ID Insurance Provider's Telephone Number Policy Licona's Name Patient's Relationship to Policy [place] [facility] [employer] [place] [facility] [address] Sep 13, 2017 [id number] [phone] [place] PAT[place] MEDICARE (WNR) MEDICARE (M) PART B Sep 14, 2007 PART B [id number] [place] PATIENT MEDICARE (WNR) MEDICARE (M) PART B Sep 14, 2007 PART B [id number] [phone] [place] PATIENT MEDICARE (WNR) MEDICARE (M) PART A May 14, 2006 PART A [id number] [place] PATIENT MEDICARE (WNR) MEDICARE (M) PART A May 14, 2006 PART A [id number] [place] PATIENT Selected Encounter This section includes the information on record at [place] for the Encounter. Date/Time Encounter Type Encounter Description Reason Provider Source Apr 01, 2023 09:00 AM PSYTX W PT 30 MINUTES MH INTGRTD CARE IND ICD-10-CM Z63.4 Disappearance and of family member KARY BEYER [facility] Encounter Template Text not used by [place] Assessments - Encounter Diagnoses This section includes the primary and secondary diagnoses documented for the Encounter. Date/Time Primary/Secondary Diagnosis Diagnosis Name Provider Source Apr 10, 2023 11:05 AM PRIMARY Disappearance and of family member KARY BEYER [place] Plan of Treatment: Future Appointments (+ 6 months) and Future Tests (+/- 45 days) The Plan of Treatment section includes future care activities for the patient from all [facility] This section includes future appointments and future orders which are active, pending or scheduled. Future Appointments This section includes appointments that were scheduled to occur 6 months from the date of the Encounter, up to a maximum of 20 appointments. The data comes from all [place] treatment facilities. Appointment Date/Time Appointment Type Appointme nt Facility Name May 13, 2023 09:00 AM AMBULATORY - PSYCHIATRY [facility] Jun 01, 2023 10:30 AM AMBULATORY - MEDICINE [facility] [place] [facility] Jun 05, 2023 10:00 AM AMBULATORY PSYCHIATRY [facility] Jun 05, 2023 11:00 AM AMBULATORY MEDICINE [facility] [place] [facility] Jun 11, 2023 09:00 AM AMBULATORY MEDICINE [facility] [place] [facility] Jun 26, 2023 10:00 AM AMBULATORY - PSYCHIATRY [facility] July 24, 2023 10:00 AM AMBULATORY PSYCHIATRY [facility] August 06, 2023 10:00 AM AMBULATORY - PSYCHIATRY [facility] Aug 20, 2023 10:00 AM AMBULATORY PSYCHIATRY [facility] Sep 07, 2023 09:00 AM AMBULATORY MEDICINE [facility] [place] [facility] Sep 24, 2023 10:00 AM [facility] Lab Results: +/- 30 days of the encounter This section includes the Chemistry and Hematology Lab Results on record with [place] for the patient. Radiology Reports and Pathology Reports are provided separately, in subsequent sections. Lab Results This section contains the Chemistry/Hematology Results that were resulted 30 days before or 30 daysafter the date of the Encounter. Date/Time Source Result Type Result - Unit Interpretation Reference Range Comment Mar 26, 2023 11:32 AM [facility] CBC Specimen Type: BLOOD No comment entered. Ordering Provider: RASHID SOUTH Report Released Date/Time: Oct 31, 2022 11:19 AM Reporting Lab: [facility] [address] [facility] [address] Performing Lab: [facility] [address] [facility] [address] WBC 6.18 10*3/uL 4.50-11.00 RBC 4.70 10*6/uL 4.23-5.66 HGB 14.2 g/dL 12.8-17 HCT 42.5 39.2-50.4 MCV 90.4 fL 82-99 MCHC 33.4 g/dL 30.8-35.1 PLT 207 10*3/uL 140-360 RDW-CV 13.1 12.0-16.0 MCH 30.2 pg 26.2-32.6 Mar 26, 2023 11:32 AM [facility] HEMOGLOBIN A1C PANEL Specimen Type: BLOOD Comment: Values obtained from A1C measurements can vary. For atypical A1C assays, a reported value of 7.0 could actually be between 6.72 and 7.28 if measured by a reference method. A reported value of 9.0 could actually be between 8.73 and 9.27. Ref: http://www.ngs p.org/CAPdata. asp Ordering Provider: RASHID SOUTH Report Released Date/Time: Oct 31, 2022 11:20 AM Reporting Lab: [facility] [address] [facility] [address] Performing Lab: [address] [address] HEMOGLOBIN A1C 5.6 4.0-5.6 Social History: Smoking Status (Most current) and Tobacco Use (All prior to encounter date) This section includes the most current, and the historical, smoking and tobacco- related health factors from the [place] facility where the Encounter took place. Current Smoking Status This section includes the most current smoking, or tobacco-related health factor, from the [place] facility where the Encounter took place. Date/Time Current Smoking Status Comment Facil ity Sep 02, 2022 10:30 AM [facility]-TO[facility]ACCO NEVER USED [place] Tobacco Use History This section includes a history of the smoking, or tobacco-related health factors, that were collected on or before the date of the Encounter. The data comes from the [place] facility where the Encounter took place. Date/Time Smoking Status/Tobacco Use Comment Julito acgerald Dec 27, 2020 10:00 AM VA-TOBACCO NEVER USED [place] Feb 28, 2019 10:10 AM VA-TOBACCO NEVER USED [place] Sep 14, 2017 09:54 AM LIFETIME NON-TOBACCO USER [place] Sep 01, 2016 01:01 PM LIFETIME NON-TOBACCO USER [place] Jul 02, 2015 01:09 PM LIFETIME NON-TOBACCO USER [place] May 08, 2009 01:08 PM LIFETIME NON-TOBACCO USER [place] Encounter Notes: All associated encounter notes This section contains the clinical notes associated to the Encounter. Date/Time Encounter Note(s) Provider Source Apr 01, 2023 09:00 [facility] LOCAL TITLE: PRIMARY MENTAL HEALTH OUTPATIENT FOLLOW UP NOTE STANDARD TITLE: MENTAL HEALTH OUTPATIENT NOTE DATE OF NOTE: APR 01, 2023@09:00 ENTRY DATE: APR 01, 2023@09:19:24 AUTHOR: KARY BEYER EXP COSIGNER: URGENCY: STATUS: COMPLETED VISIT DURATION: 20 min VISIT TYPE: Individual, stqo-wi-imdd, follow-up visit PCP: RADHA GREENE DIAGNOSIS: Uncomplicated bereavement REASON FOR FOLLOW UP: Grief VET'S STATEMENT OF GOAL AND CONCERNS: The reports his in the hospital on March 06, 2023. He shares that he has been out of work for the past few weeks and he plans to return tomorrow. The reports he has good family support. One of his sons and his zbttxdf-pz-fes live at his home. He is considering jail placement of his feroghs-iy-dny who has dementia. The [place]'s daughter has been assisting with paperwork related to his 's passing. INTERVENTION: Supportive Therapy Interventions DIAGNOSTIC IMPRESSIONS/PLAN: [place] is an 82-year-old man who presents with grief related to his 's passing 1 month ago. He appears to have adequate coping at this time. agrees to 6-week follow-up visit to reassess adjustment and coping. CURRENT IMPRESSION OF LETHALITY RISK / PLAN FOR RISK MANAGEMENT: presents at low risk of harm to self or others at this time. INTERDICIPLINARY TREATMENT PLANNING INVOLVING: PACT PLAN FOR FOLLOW-UP: Return to [facility] in 6 weeks, karelf /asiya/ KARY BEYER PSYD CLINICAL PSYCHOLOGIST Signed: 04/01/2023 09:24 KARY BEYER
--- OUTSIDE RECORDS SUMMARY | 2024-03-25 08:23 | XMS_ITS | Encounter Summary ---
Author Name [facility] Affairs ([place]) Organization [facility] ([place]) Address [address] [place] [address] Care Team Providers Care Millinery Salesperson Name Role Phone RADHA SOUTH Primary Care [...] to Policy [place]icon[place] [employer] MEDICARE SUPPLEMEN TAL STATE AGEME Y SUPP PL Sep 13, 2017 [id number] [place] PATIENT MEDICARE (WNR) MEDICARE (M) PART B Sep 14, 2007 PART B [id number] [place] PATIENT MEDICARE (WNR) MEDICARE (M) PART B Sep 14, 2007 PART B [id number] [phone] [place] PATIENT MEDICARE (WNR) MEDICARE (M) PART A May 14, 2006 PART A [id number] [phone] [place] PATIENT MEDICARE (WNR) MEDICARE (M) PART A May 14, 2006 PART A [id number] [place] PATIENT Selected Encounter This section includes the information on record at [place] for the Encounter. Date/Time Encounter Type Encounter Description Reason Provider Source Apr 02, 2023 11:00 AM Outpatient Encounter PRIMARY CARE/MEDICINE [facility] Encounter Template Text not used by [place] Plan of Treatment: Future Appointments (+ 6 months) and Future Tests (+/- 45 days) The Plan of Treatment section includes future care activities for the patient [facility] [place] [facility] This section includes future appointments and future orders which are active, pending or scheduled. Future Appointments This section includes appointments that were scheduled to occur 6 months from the date of the Encounter, up to a maximum of 20 appointments. The data comes from all [place] treatment facilities. Appointment Date/Time Appointment Type Appointme nt Facility Name May 13, 2023 09:00 AM AMBULATORY - PSYCHIATRY [facility] Jun 01, 2023 10:30 AM AMBULATORY MEDICINE [facility] [place] [facility] Jun 05, 2023 10:00 AM AMBULATORY PSYCHIATRY [facility] Jun 05, 2023 11:00 AM AMBULATORY MEDICINE [facility] [place] [facility] Jun 11, 2023 09:00 AM AMBULATORY MEDICINE [facility] [place] [facility] Jun 26, 2023 10:00 AM AMBULATORY - PSYCHIATRY [facility] July 24, 2023 10:00 AM AMBULATORY PSYCHIATRY [facility] August 06, 2023 10:00 AM AMBULATORY PSYCHIATRY [facility] Aug 20, 2023 10:00 AM AMBULATORY PSYCHIATRY [facility] Sep 07, 2023 09:00 AM AMBULATORY MEDICINE [facility] [place] [facility] Sep 24, 2023 10:00 AM [facility] PSYCHIATRY [facility] Lab Results: +/- 30 days of the encounter This section includes the Chemistry and Hematology Lab Results on record with [place] for the patient. Radiology Reports and Pathology Reports are provided separately, in subsequent sections. Lab Results This section contains the Chemistry/Hematology Results that were resulted 30 days before or 30 daysafter the date of the Encounter. Date/Time Source Result Type Result - Unit Interpretation Reference Range Comment Mar 26, 2023 11:32 AM [facility] HEM[facility] A1C PANEL Specimen Type: BLOOD [...] Oct 31, 2022 11:20 AM Reporting Lab: [facility] [address] [facility] [address] Performing Lab: [address] [address] HEMOGLOBIN A1C 5.6 4.0-5.6 Mar 26, 2023 11:32 AM [facility] CBC Specimen Type: BLOOD No comment entered. Ordering Provider: RASHID SOUTH Report Released Date/Time: Oct 31, 2022 11:19 AM Reporting Lab: [facility] [address] [facility] [address] Performing Lab: [facility] [address] [facility] [address] WBC 6.18 10*3/uL 4.50-11.00 RBC 4.70 10*6/uL 4.23-5.66 HGB 14.2 g/dL 12.8-17 HCT 42.5 39.2-50.4 MCV 90.4 fL 82-99 MCHC 33.4 g/dL 30.8-35.1 PLT 207 10*3/uL 140-360 RDW-CV 13.1 12.0-16.0 MCH 30.2 pg 26.2-32.6 Social History: Smoking Status (Most current) and Tobacco Use (All prior to encounter date) This section includes the most current, and the historical, smoking and tobacco- related health factors from the [place] facility where the Encounter took place. Current Smoking Status This section includes the most current smoking, or tobacco-related health factor, from the [place] facility where the Encounter took place. Date/Time Current Smoking Status Comment Facil ity Sep 02, 2022 10:30 AM [place]-TO[facility]ACCO NEVER USED [place] Tobacco Use History This section includes a history of the smoking, or tobacco-related health factors, that were collected on or before the date of the Encounter. The data comes from the [place] facility where the Encounter took place. Date/Time Smoking Status/Tobacco Use Comment F acility Dec 27, 2020 10:00 AM [facility]-TOBACCO NEVER USED [place] Feb 28, 2019 10:10 AM [facility]-TOBACCO NEVER USED [place] Sep 14, 2017 09:54 AM LIFETIME NON-TOBACCO USER [place] Sep 01, 2016 01:01 PM LIFETIME NON-TOBACCO USER [place] Jul 02, 2015 01:09 PM LIFETIME NON-TOBACCO USER [place] May 08, 2009 01:08 PM LIFETIME NON-TOBACCO USER [place] Encounter Notes: All associated encounter notes This section contains the clinical notes associated to the Encounter. Date/Time Encounter Note(s) Provider Source Apr 02, 2023 11:09 AM PREVENTIVE MEDICIN E NURSING NOTE: LOCAL TITLE: CLINICAL REMINDERS/NURSING STANDARD TITLE: PREVENTIVE MEDICINE NURSING NOTE DATE OF NOTE: APR 02, 2023@11:09 ENTRY DATE: APR 02, 2023@11:09:43 AUTHOR: GLORIA RAMOS COSIGNER: URGENCY: STATUS: COMPLETED PTSD Screening: PC-PTSD-5 A PTSD screening test (PC-PTSD-5) was negative (score=0). IN THE PAST MONTH, have you ever had any experience that was so frightening, horrible or traumatic. For example: A serious accident or fire a physical or sexual assault or abuse An earthquake or flood A war Seeing someone be killed or seriously injured Having a loved one through homicide or suicide 1. Have you ever experienced this kind of event? NO 2. Had nightmares about the event(s) or thought about the event(s) when you did not want to? Response not required due to responses to other questions. 3. Tried hard not to think about the event(s) or went out of your way to avoid situations that reminded you of the event(s)? Response not required due to responses to other questions. 4. Been constantly on guard, watchful, or easily startled? Response not required due to responses to other questions. 5. [place] numb or detached from people, activities, or your surroundings? Response not required due to responses to other questions. 6. [place] guilty or unable to stop blaming yourself or others for the event(s) or any problems the event(s) may have caused? Response not required due to responses to other questions. COVID-19 Immunization: Virtual/Telehealth Visit - Patient educated on the need for receiving COVID-19 (SARS-CoV-2) immunization either at [facility] or outside facility. MEDD REC WILL BE COMPLETED BY PROVIDER DURING VISIT. /asiya/ GLORIA RAMOS LPN LPN Signed: 04/02/2023 11:10 GLORIA RAMOS
--- OUTSIDE RECORDS SUMMARY | 2024-03-25 08:24 | XMS_ITS | Encounter Summary ---
Author Name Department of [place] [facility] ([place]) Organization [facility] ([place]) Address [address] [place] [address] Care Team Providers Care Inspection Clerk Name Role Phone RADHA SOUTH Primary Care [...] HE[place] MEDICARE SUPPLEMEN TAL STATE AGENY Y SUPP PL Sep 13, 2017 [id number] [place] PATIENT MEDICARE (WNR) MEDICARE (M) PART B Sep 14, 2007 PART B [id number] [place] PATIENT MEDICARE (WNR) MEDICARE (M) PART B Sep 14, 2007 PART B [id number] [phone] [place] PATIENT MEDICARE (WNR) MEDICARE (M) PART A May 14, 2006 PART A [id number] [place] PATIENT MEDICARE (WNR) MEDICARE (M) PART A May 14, 2006 PART A [id number] [place] PATIENT Selected Encounter This section includes the information on record at [place] for the Encounter. Date/Time Encounter Type Encounter Description Reason Provider Source Apr 02, 2023 11:40 AM Outpatient Encounter TELEPHONE PRIMARY CARE ICD-10-CM Z63.4 Disappearance and of family member PERLA SOUTH Trevor Encounter Template Text not used by [place] Assessments - Encounter Diagnoses This section includes the primary and secondary diagnoses documented for the Encounter. Date/Time Primary/Secondary Diagnosis Diagnosis Name Provider Source Apr 02, 2023 11:40 AM PRIMARY Disappearance and of family member RASHID SOUTH [facility] Plan of Treatment: Future Appointments (+ 6 months) and Future Tests (+/- 45 days) The Plan of Treatment section includes future care activities for the patient [facility] [place] [facility] This section includes future appointments and future orders which are active, pending or scheduled. Future Appointments This section includes appointments that were scheduled to occur 6 months from the date of the Encounter, up to a maximum of 20 appointments. The data comes from all [place] treatment facilities. Appointment Date/Time Appointment Type Appointme nt Facility Name May 13, 2023 09:00 AM AMBULATORY - PSYCHIATRY [facility] Jun 01, 2023 10:30 AM AM[place]UL[place]ORY - MEDICINE [place] [place] [facility] Jun 05, 2023 10:00 AM AMBULATORY - PSYCHIATRY [facility] Jun 05, 2023 11:00 AM AMBULATORY MEDICINE [place] [facility] Jun 11, 2023 09:00 AM AMBULATORY - MEDICINE [facility] [place] [facility] Jun 26, 2023 10:00 AM AMBULATORY - PSYCHIATRY [facility] July 24, 2023 10:00 [address] [facility] August 06, 2023 10:00 AM [address]ORY [facility] Aug 20, 2023 10:00 [address] Sep 07, 2023 09:00 AM AMBULATORY MEDICINE [facility] [place] [facility] Sep 24, 2023 10:[address] [facility] Lab Results: +/- 30 days of the encounter This section includes the Chemistry and Hematology Lab Results on record with [place] for the patient. Radiology Reports and Pathology Reports are provided separately, in subsequent sections. Lab Results This section contains the Chemistry/Hematology Results that were resulted 30 days before or 30 daysafter the date of the Encounter. Date/Time Source Result Type Result - Unit Interpretation Reference Range Comment Mar 26, 2023 11:32 AM [facility] CBC Specimen Type: BLOOD No comment entered. Ordering Provider: RASHID SOUTH Report Released Date/Time: Oct 31, 2022 11:19 AM Reporting Lab: [facility] [address] [facility] [id number] Performing Lab: [facility] [address] [facility] [id number] WBC 6.18 10*3/uL 4.50-11.00 RBC 4.70 10*6/uL 4.23-5.66 HGB 14.2 g/dL 12.8-17 HCT 42.5 39.2-50.4 MCV 90.4 fL 82-99 MCHC 33.4 g/dL 30.8-35.1 PLT 207 10*3/uL 140-360 RDW-CV 13.1 12.0-16.0 MCH 30.2 pg 26.2-32.6 Mar 26, 2023 11:32 AM [facility] HEMOGLOBIN A1C PANEL Specimen Type: BLOOD [...] Oct 31, 2022 11:20 AM Reporting Lab: [facility] [address] [facility] [id number] Performing Lab: [address] [address] HEMOGLOBIN A1C 5.6 4.0-5.6 Social History: Smoking Status (Most current) and Tobacco Use (All prior to encounter date) This section includes the most current, and the historical, smoking and tobacco- related health factors from the [place] facility where the Encounter took place. Current Smoking Status This section includes the most current smoking, or tobacco-related health factor, from the [place] facility where the Encounter took place. Date/Time Current Smoking Status Comment Facil ity Sep 02, 2022 10:30 AM VA-TOBACCO NEVER USED [facility] Tobacco Use History This section includes a history of the smoking, or tobacco-related health factors, that were collected on or before the date of the Encounter. The data comes from the [place] facility where the Encounter took place. Date/Time Smoking Status/Tobacco Use Comment F acility Dec 27, 2020 10:00 AM VA-TOBACCO NEVER USED [facility] Feb 28, 2019 10:10 AM VA-TOBACCO NEVER USED [facility] Sep 14, 2017 09:54 AM LIFETIME NON-TOBACCO USER [facility] Sep 01, 2016 01:01 PM LIFETIME NON-TOBACCO USER [facility] Jul 02, 2015 01:09 PM LIFETIME NON-TOBACCO USER [facility] May 08, 2009 01:08 PM LIFETIME NON-TOBACCO USER [facility] Encounter Notes: All associated encounter notes This section contains the clinical notes associated to the Encounter. Date/Time Encounter Note(s) Provider Source Apr 02, 2023 11:40 AM PHYSICIAN TELEPHON E ENCOUNTER NOTE: LOCAL TITLE: TELEPHONE NOTE/MD STANDARD TITLE: PHYSICIAN TELEPHONE ENCOUNTER NOTE DATE OF NOTE: APR 02, 2023@11:40 ENTRY DATE: APR 02, 2023@11:40:17 AUTHOR: RADHA SOUTH EXP COSIGNER: URGENCY: STATUS: COMPLETED SUBJECT: converted from C Patient reports tearfully that his did pass away a few days before Micheal. The holidays have been quite difficult. Patient saw Dr. Jacobson yesterday with plans to follow-up next month. Patient reports adequate sleep. 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 Discuss self-care in general including finding other opportunities to connect with other people thru volunteering, etc. Patient to follow-up in two months if needed /asiya/ RADHA SOUTH MD PHYSICIAN Signed: 04/02/2023 11:47 RADHA SOUTH
--- OUTSIDE RECORDS SUMMARY | 2024-03-25 08:25 | XMS_ITS | Encounter Summary ---
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 Name Role Phone RADHA SOUTH Primary Care [...] [place] MEDICARE SUPPLEMEN TAL STATE AGENC Y SUPP PL Sep 13, 2017 [id number] [place] PATIENT MEDICARE (WNR) MEDICARE (M) PART B Sep 14, 2007 PART B [id number] [place] PATIENT MEDICARE (WNR) MEDICARE (M) PART B Sep 14, 2007 PART B [id number] [phone] [place] PATIENT MEDICARE (WNR) MEDICARE (M) PART A May 14, 2006 PART A [id number] [phone] [place] PATIENT MEDICARE (WNR) MEDICARE (M) PART A May 14, 2006 PART A [id number] [place] PATIENT Selected Encounter This section includes the information on record at [place] for the Encounter. Date/Time Encounter Type Encounter Description Reason Provider Source Jun 05, 2023 11:00 AM OFFICE O/P EST MOD 30 MIN PRIMARY CARE/MEDICINE ICD-10-CM J30.89 Other allergic rhinitis ASHELY SOUTHJESS DASIA Trevor Encounter Template Text not used by [place] Assessments - Encounter Diagnoses This section includes the primary and secondary diagnoses documented for the Encounter. Date/Time Primary/Secondary Diagnosis Diagnosis Name Provider Source August 08, 2023 10:03 AM PRIMARY Other allergic rhinitis [facility] August 08, 2023 10:03 AM SECONDARY Prolonged grief disorder [facility] August 08, 2023 10:03 AM SECONDARY Unspecified osteoarthritis, unspecified site [facility] Plan of Treatment: Future Appointments (+ 6 months) and Future Tests (+/- 45 days) The Plan of Treatment section includes future care activities for the patient from all [place] [facility] This section includes future appointments and future orders which are active, pending or scheduled. Future Appointments This section includes appointments that were scheduled to occur 6 months from the date of the Encounter, up to a maximum of 20 appointments. The data comes from all [place] treatment facilities. Appointment Date/Time Appointment Type Appointme nt Facility Name Jun 11, 2023 09:00 [facility] Jun 26, 2023 10:00 AM AMBULATORY - PSYCHIATRY [facility] July 24, 2023 10:00 AM AMBULATORY PSYCHIATRY [facility] August 06, 2023 10:00 AM AMBULATORY PSYCHIATRY [facility] Aug 20, 2023 10:00 AM AMBULATORY PSYCHIATRY [facility] Sep 07, 2023 09:00 AM [facility] Sep 24, 2023 10:00 AM AMBULATORY - PSYCHIATRY [facility] Oct 05, 2023 10:00 AM AMBULATORY MEDICINE [facility] Oct 22, 2023 10:00 AM AMBULATORY PSYCHIATRY [facility] Social History: Smoking Status (Most current) and Tobacco Use (All prior to encounter date) This section includes the most current, and the historical, smoking and tobacco- related health factors from the [place] facility where the Encounter took place. Current Smoking Status This section includes the most current smoking, or tobacco-related health factor, from the [place] facility where the Encounter took place. Date/Time Current Smoking Status Comment Indu zamora Sep 02, 2022 10:30 AM [place]-TOBACCO NEVER USED [facility] Tobacco Use History This section includes a history of the smoking, or tobacco-related health factors, that were collected on or before the date of the Encounter. The data comes from the [place] facility where the Encounter took place. Date/Time Smoking Status/Tobacco Use Comment [facility] Dec 27, 2020 10:00 AM [place]-TOBACCO NEVER US[place] [facility] Feb 28, 2019 10:10 AM VA-TOBACCO NEVER USED [facility] Sep 14, 2017 09:54 AM LIFETIME NON-TOBACCO USER [facility] Sep 01, 2016 01:01 PM LIFETIME NON-TOBACCO USER [facility] Jul 02, 2015 01:09 PM LIFETIME NON-TOBACCO USER [facility] May 08, 2009 01:08 PM LIFETIME NON-TOBACCO USER [facility] Encounter Notes: All associated encounter notes This section contains the clinical notes associated to the Encounter. Date/Time Encounter Note(s) Provider Source Jun 05, 2023 12:11 PM PREVENTIVE MEDICIN E NURSING NOTE: LOCAL TITLE: CLINICAL REMINDERS/NURSING STANDARD TITLE: PREVENTIVE MEDICINE NURSING NOTE DATE OF NOTE: JUN 05, 2023@12:11 ENTRY DATE: JUN 05, 2023@12:11:58 AUTHOR: GLORIA RAMOS EXP COSIGNER: URGENCY: STATUS: COMPLETED COVID-19 Immunization: Refused Moderna Monovalent COVID-19 vaccine Immunization: COVID-19 (MODERNA), MRNA, LNP-S, PF, 50 MCG/0.5 ML (AGES 12+ YEARS) Refusal Reason: PATIENT DECISION Patient refuses the COVID-19 (MODERNA), MRNA, LNP-S, PF, 50 MCG/0.5 ML (AGES 12+ YEARS) immunization Date Documented: 06/05/23 12:12 RHS Screen: RHS Screen Session Format: Face to Face Environmental Check Upon inquiry, the individual reports that the environment is safe to proceed. Informed Consent to Screen and Document The individual consents to proceed with screening. The individual consents to documentation of responses. PRIMARY SCREEN: In the past 12 months, how often did a current or former intimate partner (e.g., boyfriend, girlfriend, , , sexual partner): 1. Scream or curse at you Never 2. Insult or talk down to you Never 3. Threaten you with harm Never 4. Physically hurt you Never 5. Force or pressure you to have sexual contact against your will, or when you were unable to say no Never ?? The HITS tool (items 1-4 above) is [place] copyright protected by Francisco Loyd MD, and the user has full rights to use it throughout the [place] system. PRIMARY SCREEN RESULT: The Primary Screen is NEGATIVE. The individual answered never to all forms of IPV above (i.e., answered never to all 5 items) The individual accepts education and/or resources: No EDUCATION: The individual indicated readiness to learn. Education offered during this session as noted above. The individual indicated understanding by asking relevant questions and making appropriate comments. No barriers to learning were observed or identified. MED REC COMPLETED BY PROVIDER DURING VISIT. 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 Allergies kicking in. Problem list and medications reviewed. Last Labs: Mar 2023 Active problems - Computerized Problem List is the source for the followin. Normocytic anemia 2. Prediabetes 3. Non-toxic multinodular goiter Now being treated by outside provider-Dr. Randhawa who monitors nodule size with ultrasound yearly 4. Cervical Radiculopathy 5. Gastroesophageal Reflux Disorder * 6. Vitamin B1 abd B12 deficiency 7. Coronary arteriosclerosis (SNOMED CT 16895962) sees private cardio twice yr as of SEPTEMBER 26; does have occlusive disease; Stented 2010 or 8. Gastroesophageal Reflux Disorder * 9. 10: PTCA:BS:Promus: LAD Everolimus-Eluting Stent 10. Surgical Arthroscopy of the Knee with Meniscectomy (Medial or Lateral) 1991 & 1994: Left Knee Meniscetomy 11. Surgical Arthroscopy of the Knee with Meniscus Repair (Medial and Lateral) 2007: Rt Knee Menisectomy 12. Repair of ruptured Musculotendinous Cuff (Eg, Rotator Cuff) Open; chronic 2009: Rt Rotator Cuff Repair 13. Hypercholesterolemia (SNOMED CT 93608230) 14. Benign essential hypertension (SNOMED CT 9665596) 15. Frequency of Urination Dr Moncada: urologist: takes Detrol LA 4 mg 16. Appendectomy 17. 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 Expected difficulty coping. [facility]; declines referral but will reach out to [facility] if not doing well. Allergies discussed. 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 Chronic issues reviewed briefly; no changes to management unless specified above. RTC 6 mos and as needed TIME ATTESTATION: Time spent directly with the patient was ( x ) 30 minutes More than 50% of the time spent with the patient included counselling regarding the admission Medical Review, History and Physical Examination, discussion of the findings, both remote and local data in the medical record, management, and patient education for the annotated medical conditions above. Discussed with patient and agrees to plan. VA and Non VA meds were reconciled. Today's documentation was made using voice recognition software. This note may contain spelling/grammatical errors secondary to this software. Patient provided copies of labs/studies and medication list. Upcoming Appointments: 03/02/2024 09:00 CWM/SO/PACT 9 06/14/2024 09:30 CWM/NO/OPTOMETRY/JAYSHREE Med Reconciliation: Active Outpatient Medications (including Supplies): Active Outpatient Medications Status ========= 1) CARBAMIDE PEROXIDE 6.5% OTIC SOLN INSTILL 5 DROPS ACTIVE INTO THE AFFECTED EAR(S) THREE TIMES DAILY NEEDED USE FOR TWO DAYS BEFORE RN APPT 2) CETIRIZINE HCL 10MG TAB TAKE ONE TABLET BY MOUTH ONCE ACTIVE DAILY NEEDED FOR ALLERGIES 3) MELATONIN 5MG CAP/TAB TAKE ONE CAPSULE/TABLET BY ACTIVE MOUTH AT BEDTIME NEEDED FOR INSOMNIA 4) MENTHOL/M-SALICYLATE 10-15% TOP CREAM APPLY A THIN ACTIVE FILM TOPICALLY THREE TIMES DAILY NEEDED 5) VITAMIN B COMPLEX CAP TAKE 1 CAPSULE BY MOUTH ONCE ACTIVE DAILY FOR VITAMIN SUPPLEMENTATION Active Non-VA Medications Status ========= 1) Non-VA ASPIRIN 81MG CHEW TAB 81MG BY MOUTH ONCE DAILY ACTIVE 2) Non-VA ATORVASTATIN CALCIUM 40MG TAB 20MG BY MOUTH AT ACTIVE BEDTIME 3) Non-VA ISOSORBIDE MONONITRATE 30MG SA TAB 90MG BY ACTIVE MOUTH ONCE DAILY 4) Non-VA METOPROLOL SUCCINATE 25MG SA TAB 25MG BY MOUTH ACTIVE ONCE DAILY 5) Non-VA NITROGLYCERIN 0.4MG SL TAB 0.4MG UNDER THE ACTIVE TONGUE EVERY 5 MINUTES NEEDED 6) Non-VA OMEPRAZOLE 20MG EC CAP 20MG BY MOUTH ONCE ACTIVE DAILY 7) Non-VA OXYBUTYNIN CHLORIDE 5MG TAB 5MG BY MOUTH DAILY ACTIVE 8) Non-VA TRAMADOL HCL 50MG TAB 50MG BY MOUTH TWICE ACTIVE DAILY NEEDED 9) Non-VA VALSARTAN 80MG TAB 80MG BY MOUTH ONCE DAILY ACTIVE 14 Total Medications Medication (Local) Status No local medications found. Medication (Remote) Status No remote medications found. /asiya/ RADHA SOUTH MD PHYSICIAN Signed: 07/16/2023 16:26 RADHA SOUTH [facility]
--- OUTSIDE RECORDS SUMMARY | 2024-03-25 08:25 | XMS_ITS | Encounter Summary ---
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 Name Role Phone RADHA SOUTH Primary Care [...] HE[place] MEDICARE SUPPLEMEN TAL STATE AGEMI Y SUPP PL Sep 13, 2017 [id number] [phone] [place] PATIENT MEDICARE (WNR) MEDICARE (M) PART B Sep 14, 2007 PART B [id number] [place] PATIENT MEDICARE (WNR) MEDICARE (M) PART B Sep 14, 2007 PART B [id number] [phone] [place] PATIENT MEDICARE (WNR) MEDICARE (M) PART A May 14, 2006 PART A [id number] [phone] [place] PATIENT MEDICARE (WNR) MEDICARE (M) PART A May 14, 2006 PART A [id number] [place] PATIENT Selected Encounter This section includes the information on record at [place] for the Encounter. Date/Time Encounter Type Encounter Description Reason Provider Source Jun 11, 2023 09:00 AM OFF/OP EST JULY X REQ PHY/QHP PRIMARY CARE/MEDICINE ICD-10-CM H61.22 Impacted cerumen, left ear CORINA HENDRICKS Trevor Encounter Template Text not used by [place] Assessments - Encounter Diagnoses This section includes the primary and secondary diagnoses documented for the Encounter. Date/Time Primary/Secondary Diagnosis Diagnosis Name Provider Source Jun 26, 2023 02:50 PM PRIMARY Impacted cerumen, left ear CORINA HENDRICKS TRE[place] Plan of Treatment: Future Appointments (+ 6 months) and Future Tests (+/- 45 days) The Plan of Treatment section includes future care activities for the patient from all [place] [facility]. This section includes future appointments and future orders which are active, pending or scheduled. Future Appointments This section includes appointments that were scheduled to occur 6 months from the date of the Encounter, up to a maximum of 20 appointments. The data comes from all [facility] facilities. Appointment Date/Time Appointment Type Appointme nt Facility Name Jun 26, 2023 10:00 AM AMBULATORY - PSYCHIATRY [facility] July 24, 2023 10:00 AM AMBULATORY - PSYCHIATRY [facility] August 06, 2023 10:00 AM AMBULATORY - PSYCHIATRY [facility] Aug 20, 2023 10:00 AM AMBULATORY PSYCHIATRY [facility] Sep 07, 2023 09:00 AM AMBULATORY MEDICINE [facility] Sep 24, 2023 10:00 AM AMBULATORY - PSYCHIATRY [facility] Oct 05, 2023 10:00 AM AMBULATORY MEDICINE [facility] Oct 22, 2023 10:00 AM AMBULATORY - PSYCHIATRY [facility] Social History: Smoking Status (Most current) and Tobacco Use (All prior to encounter date) This section includes the most current, and the historical, smoking and tobacco- related health factors from the [place] facility where the Encounter took place. Current Smoking Status This section includes the most current smoking, or tobacco-related health factor, from the [place] facility where the Encounter took place. Date/Time Current Smoking Status Comment Facil ity Sep 02, 2022 10:30 AM [place]-TOBACCO NEVER USED [facility] Tobacco Use History This section includes a history of the smoking, or tobacco-related health factors, that were collected on or before the date of the Encounter. The data comes from the [place] facility where the Encounter took place. Date/Time Smoking Status/Tobacco Use Comment F acility Dec 27, 2020 10:00 AM [place]-TOBACCO NEVER USED [facility] Feb 28, 2019 10:10 AM [place]-TOBACCO NEVER USED [facility] Sep 14, 2017 09:54 AM LIFETIME NON-TOBACCO USER [facility] Sep 01, 2016 01:01 PM LIFETIME NON-TOBACCO USER [facility] Jul 02, 2015 01:09 PM LIFETIME NON-TOBACCO USER [facility] May 08, 2009 01:08 PM LIFETIME NON-TOBACCO USER [facility] Encounter Notes: All associated encounter notes This section contains the clinical notes associated to the Encounter. Date/Time Encounter Note(s) Provider Source Jun 11, 2023 09:05 AM NURSING NOTE: LOCAL TITLE: PRIMARY CARE NURSE NOTE STANDARD TITLE: NURSING NOTE DATE OF NOTE: JUN 11, 2023@09:05 ENTRY DATE: JUN 11, 2023@09:22:25 AUTHOR: CORINA HENDRICKS COSIGNER: URGENCY: STATUS: COMPLETED F: SHELL JAMES is an 83 yo MALE who presents to the clinic for left ear irrigation as ordered by: RADHA SOUTH Pt. reports utilizing prescribed ear drops for 5 days once a day instead of TID. Patient reported hearing concerns: Bilateral hearing aids Patient reports history of: No Ear Surgery No Brain Surgery No Ruptured TM No Reoccurring Ear Infections No Tubes No Tinnitus No Diabetes D/A: Exam - Right Ear Not examined. Exam - Left Ear Impacted cerumen. Tympanic membrane visible: No significant cerumen. Pain: No - Discharge: No Inflammation: Yes Decreased hearing: No PROCEDURE ========= Carefully irrigated ear(s) with warm water Results ======== Left Ear ========= Tympanic membrane visible: No Pain: No - Discharge: No Inflammation: Yes - Erythema: No Increased hearing: No Cerumen amount REMOVED: Veterans left ear was irrigated and caption writer was able to get 50% of ear cerumen out. Tympanic ear drum was visualized correction due to partial wax obstruction. was advised to use ear drops instructed and if no improvement in hearing to call the clinic back to schedule a nursing visit. __ PATIENT EDUCATION Procedure well tolerated. Advised to utilize drops, as needed, to soften any new cerumen accumulation. Also advised NOT to use QTips as they can push cerumen into the canal and thus can cause injury. Pt. expressed understanding of plan of care. No barriers: Patient understands and agrees to current treatment plan. If pt. has any questions, concerns, or changes in current health status he will call [facility] 20 minutes spent in patient care and education Upcoming Appointments: 06/26/2023 10:00 SPOPC/PCMHI/VINOCOUR 02/05/2024 10:00 CWM/SO/PACT 9 03/02/2024 09:00 CWM/SO/PACT 9 06/14/2024 09:30 CWM/NO/OPTOMETRY/JAYSHREE NO CLINICAL REMIDERS WERE DUE AT THE TIME OF THIS NURSING VSIIT. /asiya/ POLINA SILVAN,RN-BC REGISTERED NURSE (RN) Signed: 06/11/2023 12:54 CORINA HENDRICKS
--- OUTSIDE RECORDS SUMMARY | 2024-03-25 08:25 | XMS_ITS ---
Author Name [facility] [place] Address [address] [place] [id number] Care Team Providers Care Lead Mechanic Name Role Phone RADHA SOUTH Primary Care [...] to Policy [facility] Sep 13, 2017 [id number] [place] PATIENT MEDICARE (WNR) MEDICARE (M) PART B Sep 14, 2007 PART B [id number] [place] PATIENT MEDICARE (WNR) MEDICARE (M) PART B Sep 14, 2007 PART B [id number] MORAIMA SHELL Murray PATIENT MEDICARE (WNR) MEDICARE (M) PART A May 14, 2006 PART A [id number] [place] PATIENT MEDICARE (WNR) MEDICARE (M) PART A May 14, 2006 PART A [id number] [phone] DANNYBASSAM MurraySHELL PATIENT Selected Encounter This section includes the information on record at [place] for the Encounter. Date/Time Encounter Type Encounter Description Reason Provider Source Jun 01, 2023 10:30 AM COMPRE OPH EXAM EST PT 1/> OPTOMETRY ICD-10-CM H04.123 Dry eye syndrome of bilateral lacrimal glands JOSEPH MARTELLERYN Murray Trevor Encounter Template Text not used by [place] Assessments - Encounter Diagnoses This section includes the primary and secondary diagnoses documented for the Encounter. Date/Time Primary/Secondary Diagnosis Diagnosis Name Provider Source Jun 23, 2023 03:26 PM PRIMARY Dry eye syndrome of bilateral lacrimal glands JAYSHREEEB NAIDU [place] [facility] [place] [facility] Jun 23, 2023 03:26 PM SECONDARY Cysts of unspecified eye, unspecified eyelid JAYSHREEEB [place] [facility] [place] [facility] Jun 23, 2023 03:26 PM SECONDARY Other retinal detachments EB MARTELL [place] [facility] [place] [facility] Jun 23, 2023 03:26 PM SECONDARY Presence of intraocular lens EB MARTELL [place] [facility] [place] [facility] Plan of Treatment: Future Appointments (+ 6 months) and Future Tests (+/- 45 days) The Plan of Treatment section includes future care activities for the patient from all [place] [facility]. This section includes future appointments and future orders which are active, pending or scheduled. Future Appointments This section includes appointments that were scheduled to occur 6 months from the date of the Encounter, up to a maximum of 20 appointments. The data comes from all [place] treatment facilities. Appointment Date/Time Appointment Type Appointme nt Facility Name Jun 05, 2023 10:00 AM AMBULATORY - PSYCHIATRY [facility] Jun 05, 2023 11:00 AM AMBULATORY - MEDICINE [facility] [place] [facility] Jun 11, 2023 09:00 AM AMBULATORY - MEDICINE [facility] [place] [facility] Jun 26, 2023 10:00 AM AMBULATORY - PSYCHIATRY [facility] July 24, 2023 10:00 AM AMBULATORY - PSYCHIATRY [facility] August 06, 2023 10:00 AM AMBULATORY - PSYCHIATRY [facility] Aug 20, 2023 10:00 AM AMBULATORY - PSYCHIATRY [facility] Sep 07, 2023 09:00 AM AMBULATORY - MEDICINE [facility] [place] [facility] Sep 24, 2023 10:00 AM AMBULATORY - PSYCHIATRY [facility] Oct 05, 2023 10:00 AM AMBULATORY - MEDICINE [place] [facility] [place] [facility] Oct 22, 2023 10:00 AM AMBULATORY - PSYCHIATRY [facility] Encounter Notes: All associated encounter notes This section contains the clinical notes associated to the Encounter. Date/Time Encounter Note(s) Provider Source Jun 01, 2023 07:53 AM OPTOMETRY NOTE: LOCAL TITLE: OPTOMETRY NOTE STANDARD TITLE: OPTOMETRY NOTE DATE OF NOTE: JUN 01, 2023@07:53 ENTRY DATE: JUN 01, 2023@07:53:38 AUTHOR: SCOTTIE RIVERO EXP COSIGNER: TONI MARTELL URGENCY: STATUS: COMPLETED OPTOMETRY NOTE Has ADDENDA Active problems - Computerized Problem List is the source for the followin. Normocytic anemia 2. Prediabetes 3. Non-toxic multinodular goiter 4. Cervical Radiculopathy 5. Gastroesophageal Reflux Disorder * 6. Vitamin B1 abd B12 deficiency 7. Coronary arteriosclerosis (SNOMED CT 45700727) 8. Gastroesophageal Reflux Disorder * 9. 2410: PTCA:BS:Promus: LAD 10. Surgical Arthroscopy of the Knee with Meniscectomy (Medial or Lateral) 11. Surgical Arthroscopy of the Knee with Meniscus Repair (Medial and Lateral) 12. Repair of ruptured Musculotendinous Cuff (Eg, Rotator Cuff) Open; chronic 13. Hypercholesterolemia (SNOMED CT 44066809) 14. Benign essential hypertension (SNOMED CT 3076135) 15. Frequency of Urination 16. Appendectomy 17. Repair of Retinal Detachment from Previous Surgery/Procedure 18. Sleep Apnea Active Outpatient Medications (including Supplies): Active Outpatient Medications Status 1) MENTHOL/M-SALICYLATE 10-15% TOP CREAM APPLY A THIN ACTIVE FILM TOPICALLY THREE TIMES DAILY NEEDED Active Non-VA Medications Status 1) Non-VA ASPIRIN 81MG CHEW TAB 81MG [...] TAB 80MG BY MOUTH ONCE DAILY ACTIVE 10 Total Medications Allergies: Patient has answered NKA All medications including those prescribed by outside VA's, community providers,and all OTC meds were reviewed and reconciled with patient to the best of their abilities. This 82 year old MALE is seen today for comprehensive eye exam Chief Complaint: Has no visual complaints. patient uses Refresh eye drops which provide relief. OHx: 1. Bilateral Pseudophakia 2. Retinal detachment repair with scleral buckle OS 3. Dry eye syndrome OU 4. Refractive error with presbyopia (-) Pain: (-) ODEN: (-) Diplopia: (-) Flashes: (+) Floaters: longstanding (-) Amaurosis Fugax/Tia's: (+) Eye Injury:Hit in OS with brush from chainsaw 2009 (+) Eye Surgery: [facility] FIORDALIZA, 2014, retinal detachment repair with scleral buckle left eye (+) TBI: Previous fall without ocular complication or sequelae FOHx: (-) Glaucoma/ARMD/Blindness (-) Smoker/Length of Time/PPD: Last eye exam: 02-20-22 Current Rx with last BCVA: OD:+0.50 -1.00 x 135 20/20 OS:[place] -1.00 x 010 20/20-2 ADD:+2.75 20/20 DVA ( )sc ( x )cc OD: 20/20 OS: 20/30+ Pupils: PERRL (-)APD EOMs: SAFE OU, (-)Pain/Diplopia CVF (facial, peripheral): FTFC OU Subjective Refraction: BCVA OD:+0.50 -1.00 x 135 20/20 OS:-0.50 -1.00 x 010 20/25-2 ADD:+2.75 20/20 All the above performed by student, reviewed by attending Anterior segment: Performed by student, repeated by attending Lids: MGD OU,Dermatochalasis, 2+ lower lid bags, pendunculated papilloma temporal LLL , ptosis OS>>OD ith hoodwinking Conj: white and quiet OU Cornea: clear OU AC: 4x4 OU Iris: flat and clear OU Lens: PCIOL with mild PCO OD>>OS Tonometry: Goldmann Performed by student, reviewed by attending OD: 10 mmHg OS: 12 mmHg Time: 10:30am Last IOP: OD: 11 mmHg OS: 10 mmHg Fundus exam: Dilated: 10:32 am Dilating Drops: 1GTT 1 % Tropicamide OU & 1GTT 2.5% Phenylephrine OU (Pt. ed. on side effects, dilation warning given and verbal consent obtained) Patient advised not to drive if they feel they have any symptoms which could affect their ability to drive safely. Patient advised not to engage in any activities which could put themselves or others at risk if they feel they have any symptoms which could affect their ability to perform those activities safely. Performed by student, repeated by attending Vit: PVD OU C/D: 0.30/0.30 OD, 0.30/0.30 OS Macula: flat and clear OU PPole: clear A/V: 2/3 Vessels: normal caliber OU Periph: flat and intact (-)holes, tears, detachments 360 OU retinal detachment repair with scleral buckle temporal with chorioretinal scarring OS Assessment/Plan: 1. Dry eye syndrome OU - Patient was educated and understanding on findings. Currently symptomatic therefore, the use of lubricating drops BID-QID OU, warm compresses and lid hygiene were recommended. - Monitor during next CEE. 2. 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 Post retinal detachment repair OS with scleral buckle - no new holes, tears, detachment OU -Monitor 4. Bilateral pseudophakia with mild Posterior capsule opacification -Patient educated re today's findings and the importance of protection - repeated back the plan and education -Monitor 5. Hyperopia with regular astigmatism with prsbyopia OU -Patient educated on findings, Rx updated -New RX ordered for bifocals -Monitor Return to Clinic 1 year or earlier JOSE ELIAS /asiya/ SCOTTIE RIVERO OPTOMETRY STUDENT Signed: 06/01/2023 11:51 /asiya/ Toni Martell OD CHIEF OF OPTOMETRY Cosigned: 06/03/2023 14:24 06/03/2023 ADDENDUM STATUS: COMPLETED I saw this patient in conjunction with the student and agree the stated findings and plan as below after reviewing both the history and repeating jernigan elements of the physical exam now. Patient seen June 01, 2023 for comprehensive eye examination. His last exam here was on February 20, 2022. He complains of symptoms related to dry eye disease and is requesting refills for lubricating drops for mail out today. Impression: Mild bilateral dry eye disease. Recommend use of warm compresses daily with lubricating drops up to 4 times a day as needed for dry eye symptoms. Benign pedunculated papilloma left lower lid without high risk characteristics currently asymptomatic. Status post retinal detachment repair with scleral buckle left eye with no evidence of new holes, tears, detachments noted either eye. Bilateral pseudophakia looks perfect update glasses today. Plan: Patient education as noted above reviewed exam findings now. Recommend more frequent use of lubricating drops up to 4 times a day for dry eye symptoms. Lubricating drops ordered for mail out. Order new glasses today. Return in 12 months or sooner if need be. Ophthalmic medication reconciliation: The patient is prescribed lubricating drops to be used up to 4 times a day as needed for dry eye symptoms. Medication Reconciliation: Outpatient: Has the patient been taking medications as documented in the EMLR? YES: The patient has been taking medications as documented in the EMLR. Essential Medication List for Review used to complete this medication reconciliation. INCLUDED IN THIS LIST: Alphabetical list of active outpatient prescriptions dispensed from this VA (local) and dispensed from another [place] or [facility] facility (remote) as well as inpatient orders (local, pending and active), local clinic medications, locally documented non-VA medications, and local prescriptions that have or been discontinued in the past 90 days. - All changes in medications, including all non-VA/Herbal/OTC medications were entered into CPRS. Changes: Lubricating drops - If there were any medications the patient should no longer take, they were discontinued. - The patient/caregiver was instructed to update this list, discard old lists, and take this list to the next appointment, whether with a VA or non-VA provider. Medication List: JLV Link Data on this list may not be complete. Please check JLV. Allergies/ADRs (Tool #5) FACILITY ALLERGY/ADR -------- No Remote Allergy/ADR Data available for this patient [place] [facility] [place] [facility] No Known Allergies Med. Reconciliation (Tool #1) INCLUDED IN THIS LIST: Alphabetical list of active outpatient prescriptions dispensed from this VA (local) and dispensed from another [place] or [facility] facility (remote) as well as inpatient orders (local pending and active), local clinic medications, locally documented non-VA medications, and local prescriptions that have or been discontinued in the past 90 days. Non-VA Meds Last Documented On: Jun 26, 2021 NOTE The display of VA prescriptions dispensed from another [place] or [facility] facility (remote) is limited to active outpatient prescription entries matched to National Drug File at the originating site and may not include some items such as investigational drugs, compounds, etc. NOT INCLUDED IN THIS LIST: Medications self-entered by the patient into personal health records (i.e. [employer]) are NOT included in this list. Non-VA medications documented outside this [place], remote inpatient orders (regardless of status) and remote clinic medications are NOT included in this list. The patient and provider must always discuss medications the patient is taking, regardless of where the medication was dispensed or obtained. Non-VA ASPIRIN 81MG CHEW TAB CHEW ONE TABLET BY MOUTH ONCE DAILY Medication prescribed by Non-VA provider. Non-VA ATORVASTATIN CALCIUM 40MG TAB TAKE ONE-HALF TABLET BY MOUTH AT BEDTIME Medication prescribed by Non-VA provider. Non-VA ISOSORBIDE MONONITRATE 30MG SA TAB TAKE THREE TABLETS BY MOUTH ONCE DAILY Medication prescribed by Non-VA provider. OUTPT MENTHOL/M-SALICYLATE 10-15% TOP CREAM (Status = Active) APPLY A THIN FILM TOPICALLY THREE TIMES DAILY NEEDED Rx# [id number] Last Released: 10/31/22 Qty/Days Supply: Rx Expiration Date: 09/03/23 Refills Remainin Indication: FOR MUSCLE PAIN Non-VA METOPROLOL SUCCINATE 25MG SA TAB TAKE ONE TABLET BY MOUTH ONCE DAILY Medication prescribed by Non-VA provider. Non-VA NITROGLYCERIN 0.4MG SL TAB DISSOLVE ONE TABLET UNDER THE TONGUE EVERY 5 MINUTES NEEDED Medication prescribed by Non-VA provider. ER with no improvement after 3rd dose. Non-VA OMEPRAZOLE 20MG EC CAP TAKE 1 CAPSULE BY MOUTH ONCE DAILY Medication prescribed by Non-VA provider. Non-VA OXYBUTYNIN CHLORIDE 5MG TAB TAKE ONE TABLET BY MOUTH DAILY Medication prescribed by Non-VA provider. Non-VA TRAMADOL HCL 50MG TAB TAKE ONE TABLET BY MOUTH TWICE DAILY NEEDED Medication prescribed by Non-VA provider. Non-VA VALSARTAN 80MG TAB TAKE ONE TABLET BY MOUTH ONCE DAILY Medication prescribed by Non-VA provider. SUPPLIES PHARMACY TERMS AND POSSIBLE PATIENT ACTIONS INPT = [place] inpatient order IV = MT intravenous medication OUTPT = [place] outpatient prescription PHARMACY POSSIBLE PATIENT TERMS EXPLANATION ACTIONS -------- -- ACTIVE A prescription that can be If you have refills, filled at the local [place] pharmacy. you may request a refill of this prescription from your [place] pharmacy. CLINIC A medication you received during If you have questions a visit to a [place] clinic or about this medication emergency department. contact your [place] healthcare team. DISCONTINUED A prescription your provider has Contact your [place] stopped. It is no longer healthcare team if you available to be sent to you or need more of this picked up at the [place] pharmacy medication. window. A prescription which is too old Contact your [place] to fill. This does not refer to healthcare team if you the expiration date of the need more of this medication in the container. medication. NON-VA A medication that came from If this medication someplace other than a VA information is pharmacy. This may be a incorrect or out of prescription from either the VA date, please tell your or non VA providers that was VA healthcare team. filled outside the VA. Or, it may be an nqta-[id number] (OTC), herbal, dietary supplements or sample medication. ON HOLD An active prescription that will Contact your VA not be filled until pharmacy pharmacy when you need resolves the issue. more of this medication. PARKED An active prescription that will Contact your VA not be filled until the patient pharmacy when you need requests it. this medication. PENDING This prescription order has been If you have been sent to the pharmacy for review instructed to start and is not ready yet. this medication now, contact your VA pharmacy. SUSPENDED An active prescription that is Contact your VA not scheduled to be filled yet. pharmacy if you need You should receive it before this medication now. you run out. ====== Declines printed copy of medication list now. /asiya/ Toni Martell OD CHIEF OF OPTOMETRY Signed: 06/03/2023 14:27 SCOTTIE RIVERO [place] [facility]
--- OUTSIDE RECORDS SUMMARY | 2024-03-25 08:25 | XMS_ITS | Encounter Summary ---
Author Name [place] Address [address] [place] [id number] Care Team Providers Care Nib Inspector Name Role Phone RADHA SOUTH Primary Care [...] to Policy [facility] Sep 13, 2017 [id number] [place] PATIENT MEDICARE (WNR) MEDICARE (M) PART B Sep 14, 2007 PART B [id number] [place] PATIENT MEDICARE (WNR) MEDICARE (M) PART B Sep 14, 2007 PART B [id number] [place] PATIENT MEDICARE (WNR) MEDICARE (M) PART A May 14, 2006 PART A [id number] [phone] [place] PATIENT MEDICARE (WNR) MEDICARE (M) PART A May 14, 2006 PART A [id number] [place] PATIENT Selected Encounter This section includes the information on record at [place] for the Encounter. Date/Time Encounter Type Encounter Description Reason Provider Source Jun 05, 2023 10:00 AM PSYTX W PT 30 MINUTES PCMHI INDIV ICD-10-CM Z63.4 Disappearance and of family member KARY BEYER [facility] Encounter Template Text not used by [place] Assessments - Encounter Diagnoses This section includes the primary and secondary diagnoses documented for the Encounter. Date/Time Primary/Secondary Diagnosis Diagnosis Name Provider Source Jul 08, 2023 11:11 AM PRIMARY Disappearance and of family member KARY BEYER [place] Plan of Treatment: Future Appointments (+ 6 months) and Future Tests (+/- 45 days) The Plan of Treatment section includes future care activities for the patient from all [place] [facility]. This section includes future appointments and future orders which are active, pending or scheduled. Future Appointments This section includes appointments that were scheduled to occur 6 months from the date of the Encounter, up to a maximum of 20 appointments. The data comes from all [facility] facilities. Appointment Date/Time Appointment Type Appointme nt Facility Name Jun 11, 2023 09:00 AM AMBULATORY - MEDICINE [facility] Jun 26, 2023 10:00 AM AMBULATORY - PSYCHIATRY [facility] July 24, 2023 10:00 AM AMBULATORY PSYCHIATRY [facility] August 06, 2023 10:00 AM AMBULATORY PSYCHIATRY [facility] Aug 20, 2023 10:00 AM AMBULATORY PSYCHIATRY [facility] Sep 07, 2023 09:00 AM AMBULATORY MEDICINE [facility] Sep 24, 2023 10:00 AM AMBULATORY PSYCHIATRY [facility] Oct 05, 2023 10:00 AM AMBULATORY MEDICINE [facility] Oct 22, 2023 10:00 AM AMBULATORY PSYCHIATRY [facility] Social History: Smoking Status (Most current) and Tobacco Use (All prior to encounter date) This section includes the most current, and the historical, smoking and tobacco- related health factors from the [place] facility where the Encounter took place. Current Smoking Status This section includes the most current smoking, or tobacco-related health factor, from the [place] facility where the Encounter took place. Date/Time Current Smoking Status Megan zamora Sep 02, 2022 10:30 [facility] [place] Tobacco Use History This section includes a history of the smoking, or tobacco-related health factors, that were collected on or before the date of the Encounter. The data comes from the [place] facility where the Encounter took place. Date/Time Smoking Status/Tobacco Use Comment F acility Dec 27, 2020 10:00 AM VA-TOBACCO NEVER USED [place] Feb 28, 2019 10:10 AM VA-TOBACCO NEVER USED [place] Sep 14, 2017 09:54 AM LIFETIME NON-TOBACCO USER [place] Sep 01, 2016 01:01 PM LIFETIME NON-TOBACCO USER [place] Jul 02, 2015 01:09 PM LIFETIME NON-TOBACCO USER [place] May 08, 2009 01:08 PM LIFETIME NON-TOBACCO USER [place] Encounter Notes: All associated encounter notes This section contains the clinical notes associated to the Encounter. Date/Time Encounter Note(s) Provider Source Jun 11, 2023 08:42 AM MENTAL HEALTH DIAG NOSTIC STUDY NOTE: LOCAL TITLE: MENTAL HEALTH DIAGNOSTIC STUDY STANDARD TITLE: MENTAL HEALTH DIAGNOSTIC STUDY NOTE DATE OF NOTE: JUN 11, 2023@08:42:42 ENTRY DATE: JUN 11, 2023@08:42:42 AUTHOR: KARY BEYER COSIGNER: URGENCY: STATUS: COMPLETED These assessments were completed by SHELL JAMES via provider direct entry on 06/11/2023 8:41:19 AM. PATIENT HEALTH QUESTIONNAIRE-9 (PHQ-9) The patient reported some symptoms of depression; symptoms are not consistent with a major depressive episode. Patient reported being bothered by the following over the last 2 weeks: 1. Little interest or pleasure: Nearly every day 2. Feeling down, depressed or hopeless: Not at all 3. Trouble sleeping: Several Days 4. Tired, low energy: Several Days 5. Poor appetite, over-eating: Not at all 6. Feelings of failure, guilt: Not at all 7. Trouble concentrating: Several Days 8. Motor retardation, agitation: Not at all 9. Thoughts better off /hurting self: Not at all PHQ-9 total score = 6 1-4 = minimal symptoms 5-9= mild symptoms 10-14= moderate symptoms 15-19= moderately severe symptoms 20-27= severe depressive symptoms The patient stated that the depressive symptoms made it not at all difficult to work, take care of things at home, or get along with others. PHQ-9 Total Score (past 180 days): 06/11/2023 6 01/29/2023 5 GENERAL ANXIETY DISORDER-7 (TASHIA-7) Patient reported being bothered by the following over the last two weeks: 1. Feeling nervous, anxious or on edge: Several days 2. Not being able to stop or control worrying: Not at all 3. Worrying too much about different things: Several days 4. Trouble relaxing: Several days 5. Feeling restless (hard to sit still): Several days 6. Becoming easily annoyed or irritable: Not at all 7. Afraid as if something awful might happen: Several days TASIHA-7 total score = 5 0-4=minimal symptoms 5-9=mild symptoms 10-14=moderate symptoms 15-21=severe symptoms The patient stated that the anxiety symptoms made it not at all difficult to work, take care of things at home, or get along with others. TASHIA-7 Total Score (past 180 days): 06/11/2023 5 01/29/2023 Elfe[place] /asiya/ KARY BEYER PSYD CLINICAL PSYCHOLOGIST Signed: 06/11/2023 08:48 KARY BEYER [place] Jun 05, 2023 10:00 AM MENTAL HEALTH OUTP ATIENT NOTE: LOCAL TITLE: PRIMARY MENTAL HEALTH OUTPATIENT FOLLOW UP NOTE STANDARD TITLE: MENTAL HEALTH OUTPATIENT NOTE DATE OF NOTE: JUN 05, 2023@10:00 ENTRY DATE: JUN 05, 2023@10:00:08 AUTHOR: KARY BEYER EXP COSIGNER: URGENCY: STATUS: COMPLETED VISIT DURATION: 30 min VISIT TYPE: Individual, phro-bh-eywd, follow-up visit PCP: RADHA GREENE DIAGNOSIS: Uncomplicated bereavement REASON FOR FOLLOW UP: Grief VET'S STATEMENT OF GOAL AND CONCERNS: The reports he has been doing better over the past month since previous visit. His [id number] was taken to the hospital for shortness of breath earlier this week and the [place] anticipates he may be transferred to a care home, which aligns with the family's plan to increase his level of care. INTERVENTION: Supportive Therapy Interventions The voices feeling positive support from his children, who are local. He requests 3-week follow-up in [facility] for emotional support. DIAGNOSTIC IMPRESSIONS/PLAN: is an 82-year-old man who presents with grief related to his 's passing 2 months ago. He appears to have good coping at this time. agrees to 3-week follow-up visit to reassess adjustment and coping. CURRENT IMPRESSION OF LETHALITY RISK / PLAN FOR RISK MANAGEMENT: [place] presents at low risk of harm to self or others at this time. INTERDICIPLINARY TREATMENT PLANNING INVOLVING: PACT PLAN FOR FOLLOW-UP: 3 weeks, [id number] /asiya/ KARY BEYER PSYD CLINICAL PSYCHOLOGIST Signed: 06/18/2023 09:55 KARY BEYER
--- OUTSIDE RECORDS SUMMARY | 2024-03-25 08:25 | XMS_ITS | Encounter Summary ---
Author Name Department [place] Organization [place] Address [address] [place] [address] Care Team Providers Care Cook Vegetable Name Role Phone RADHA SOUTH Primary Care [...] to Policy [facility] PL Sep 13, 2017 [id number] [place] PATIENT MEDICARE (WNR) MEDICARE (M) PART B Sep 14, 2007 PART B [id number] [place] PATIENT MEDICARE (WNR) MEDICARE (M) PART B Sep 14, 2007 PART B [id number] [phone] [place] PATIENT MEDICARE (WNR) MEDICARE (M) PART A May 14, 2006 PART A [id number] [place] PATIENT MEDICARE (WNR) MEDICARE (M) PART A May 14, 2006 PART A [id number] [place] PATIENT Selected Encounter This section includes the information on record at [place] for the Encounter. Date/Time Encounter Type Encounter Description Reason Provider Source May 13, 2023 09:00 AM PSYTX W PT 30 MINUTES MH INTGRTD CARE IND ICD-10-CM Z63.4 Disappearance and of family member KARY BEYER [facility] Encounter Template Text not used by [place] Assessments - Encounter Diagnoses This section includes the primary and secondary diagnoses documented for the Encounter. Date/Time Primary/Secondary Diagnosis Diagnosis Name Provider Source May 26, 2023 04:17 PM PRIMARY Disappearance and of family member KARY BEYER [place] Plan of Treatment: Future Appointments (+ 6 months) and Future Tests (+/- 45 days) The Plan of Treatment section includes future care activities for the patient from all [place] [facility]. This section includes future appointments and future orders which are active, pending or scheduled. Future Appointments This section includes appointments that were scheduled to occur 6 months from the date of the Encounter, up to a maximum of 20 appointments. The data comes from all [place] treatment facilities. Appointment Date/Time Appointment Type Appointme nt Facility Name Jun 01, 2023 10:30 AM AMBULATORY - MEDICINE [facility] [place] [facility] Jun 05, 2023 10:00 AM AMBULATORY - PSYCHIATRY [facility] Jun 05, 2023 11:00 AM AMBULATORY - MEDICINE [facility] [place] [facility] Jun 11, 2023 09:00 AM AMBULATORY MEDICINE [facility] [place] [facility] Jun 26, 2023 10:00 AM AMBULATORY - PSYCHIATRY [facility] July 24, 2023 10:00 AM AMBULATORY - PSYCHIATRY [facility] August 06, 2023 10:00 AM AMBULATORY - PSYCHIATRY [facility] Aug 20, 2023 10:00 AM AMBULATORY - PSYCHIATRY [facility] Sep 07, 2023 09:00 AM AMBULATORY MEDICINE [facility] [place] [facility] Sep 24, 2023 10:00 AM AMBULATORY - PSYCHIATRY [facility] Oct 05, 2023 10:00 AM AMBULATORY MEDICINE [facility] [place] [facility] Oct 22, 2023 10:00 AM AMBULATORY - PSYCHIATRY [facility] Social History: Smoking Status (Most current) and Tobacco Use (All prior to encounter date) This section includes the most current, and the historical, smoking and tobacco- related health factors from the [place] facility where the Encounter took place. Current Smoking Status This section includes the most current smoking, or tobacco-related health factor, from the [place] facility where the Encounter took place. Date/Time Current Smoking Status Comment Indu zamora Sep 02, 2022 10:30 AM [place]-TOBACCO NEVER USED [place] Tobacco Use History This section includes a history of the smoking, or tobacco-related health factors, that were collected on or before the date of the Encounter. The data comes from the [place] facility where the Encounter took place. Date/Time Smoking Status/Tobacco Use Comment F acility Dec 27, 2020 10:00 AM VA-TOBACCO NEVER USED [place] Feb 28, 2019 10:10 AM VA-TOBACCO NEVER USED [place] Sep 14, 2017 09:54 AM LIFETIME NON-TOBACCO USER [place] Sep 01, 2016 01:01 PM LIFETIME NON-TOBACCO USER [place] Jul 02, 2015 01:09 PM LIFETIME NON-TOBACCO USER [place] May 08, 2009 01:08 PM LIFETIME NON-TOBACCO USER [place] Encounter Notes: All associated encounter notes This section contains the clinical notes associated to the Encounter. Date/Time Encounter Note(s) Provider Source May 13, 2023 09:00 AM [facility] NOTE: LOCAL TITLE: PRIMARY MENTAL HEALTH OUTPATIENT FOLLOW UP NOTE STANDARD TITLE: MENTAL HEALTH OUTPATIENT NOTE DATE OF NOTE: MAY 13, 2023@09:00 ENTRY DATE: MAY 13, 2023@09:33:07 AUTHOR: KARY BEYER COSIGNER: URGENCY: STATUS: COMPLETED VISIT DURATION: 30 min VISIT TYPE: Individual, [id number], follow-up visit PCP: RADHA GREENE DIAGNOSIS: Uncomplicated bereavement REASON FOR FOLLOW UP: Grief VET'S STATEMENT OF GOAL AND CONCERNS: The [place] reports he has been doing better over the past month since previous visit. [place] shares that he is back at work and it has been a good distraction from his grief. His daughter has been very helpful with regard to paperwork related to his 's passing as well as trying to find a fdc placement for his bmorzak-tl-rkn who has dementia. shares that he visits the cemetery daily and he is in close touch with all 3 of his children. INTERVENTION: Supportive Therapy Interventions Undersigned validated the nonlinear nature of grief and how it can come in waves. DIAGNOSTIC IMPRESSIONS/PLAN: [place] is an 82-year-old man who presents with grief related to his 's passing 2 months ago. He appears to have good coping at this time. agrees to 3-week follow-up visit to reassess adjustment and coping. CURRENT IMPRESSION OF LETHALITY RISK / PLAN FOR RISK MANAGEMENT: [place] presents at low risk of harm to self or others at this time. INTERDICIPLINARY TREATMENT PLANNING INVOLVING: PACT PLAN FOR FOLLOW-UP: Return to [facility] in 3 weeks, f2f, to coincide with PCP visit. /asiya/ KARY BEYER PSYD CLINICAL PSYCHOLOGIST Signed: 05/13/2023 09:36 KARY BEYER
--- OUTSIDE RECORDS SUMMARY | 2024-03-25 08:25 | XMS_ITS | Encounter Summary ---
Author Name Department [place] Organization [place] Address [address] [place] [address] Care Team Providers Care Recreational Programs Director Name Role Phone RADHA SOUTH Primary [...] Policy [facility] SUPP[facility] SUPP PL Sep 13, 2017 [id number] [phone] [place] PATIENT MEDICARE (WNR) MEDICARE (M) PART B Sep 14, 2007 PART B [id number] [place] PATIENT MEDICARE (WNR) MEDICARE (M) PART B Sep 14, 2007 PART B [id number] [place] PATIENT MEDICARE (WNR) MEDICARE (M) PART A May 14, 2006 PART A [id number] [place] PATIENT MEDICARE (WNR) MEDICARE (M) PART A May 14, 2006 PART A [id number] [phone] LEONARDOWILLIAM MurraySHELL PATIENT Selected Encounter This section includes the information on record at [place] for the Encounter. Date/Time Encounter Type Encounter Description Reason Provider Source 2023 03:55 PM FIT SPECTACLES BIFOCAL OPTOMETRY ICD-10-CM Z46.0 Encounter for fit/adjst of spectacles and contact lenses EB MARTELL Trevor Encounter Template Text not used by [place] Assessments - Encounter Diagnoses This section includes the primary and secondary diagnoses documented for the Encounter. Date/Time Primary/Secondary Diagnosis Diagnosis Name Provider Source 2023 03:55 PM PRIMARY Encounter for fit/adjst of spectacles and contact lenses ILIA PLUMMER [place] [facility] [place] [facility] Plan of Treatment: Future Appointments (+ 6 months) and Future Tests (+/- 45 days) The Plan of Treatment section includes future care activities for the patient from all [place] treatmentfacilities. This section includes future appointments and future [...] 05, 2023 11:00 AM AMBULATORY - MEDICINE [facility] [place] [facility] Jun 11, 2023 09:00 AM AM[place]ULATORY - MEDICINE [place] [facility] Jun 26, 2023 10:00 AM AMBULATORY - PSYCHIATRY [facility] July 24, 2023 10:00 AM AMBULATORY - PSYCHIATRY [facility] August 06, 2023 10:00 AM AMBULATORY - PSYCHIATRY [facility] Aug 20, 2023 10:00 AM AMBULATORY - PSYCHIATRY [facility] Sep 07, 2023 09:00 AM AMBULATORY - MEDICINE [place] [facility] Sep 24, 2023 10:00 AM AMBULATORY - PSYCHIATRY [facility] Oct 05, 2023 10:00 AM AMBULATORY - MEDICINE [place] [facility] Oct 22, 2023 10:00 AM AMBULATORY - PSYCHIATRY [facility] Encounter Notes: All associated encounter notes This section contains the clinical notes associated to the Encounter. Date/Time Encounter Note(s) Provider Source 2023 03:55 PM OPTOMETRY NOTE: LOCAL TITLE: OPTOMETRY NOTE STANDARD TITLE: OPTOMETRY NOTE DATE OF NOTE: 2023@15:55 ENTRY DATE: 2023@15:55:35 AUTHOR: SHANA NASH EXP COSIGNER: URGENCY: STATUS: COMPLETED OPTOMETRY NOTE Has ADDENDA bif clear The quote provided below is for informational purposes only. Please verify prior to the creation of a purchase order. SHELL JAMES [id number] RX INFORMATION OD +0.50 -1.00 X135 Add:+2.75 Pzm:0.00 Dir: Prz2:0.00 Dir2: OS -0.25 -1.00 X10 Add:+2.75 Pzm:0.00 Dir: Prz2:0.00 Dir2: FITTING INFORMATION FPD:58 NPD:55 [place]:R: L: SEG HT:R:12 L:12 Tint:None Shade:None [place] Billable Items FRAME: FX8 COFFEE 145 Right Lens: POLY BIFOCAL FT28 1.586 POLY Left Lens: POLY BIFOCAL FT28 1.586 POLY bif [place] The quote provided below is for informational purposes only. Please verify prior to the creation of a purchase order. SHELL JAMES [id number] RX INFORMATION OD +0.50 -1.00 X135 Add:+2.75 Pzm:0.00 Dir: Prz2:0.00 Dir2: OS -0.25 -1.00 X10 Add:+2.75 Pzm:0.00 Dir: Prz2:0.00 Dir2: FITTING INFORMATION FPD:58 NPD:55 [place]:R: L: SEG HT:R:15 L:15 Tint:[place] Shade:3 VA Billable Items FRAME: FX27 [facility] GREENEMETAL 145 Right Lens: POLY BIFOCAL FT28 1.586 POLY Left Lens: POLY BIFOCAL FT28 1.586 POLY SOLID TINT /asiya/ SHANA NASH GRAPE GROWER Signed: 2023 15:55 Receipt Acknowledged By: 06/03/2023 10:20 /asiya/ ILIA PLUMMER OPTOMETRY TECH 06/03/2023 ADDENDUM STATUS: COMPLETED PDS Certified Peer Specialist fit patient with 1 pair(s) of bifocal clear eyeglasses, and 1 pair of bifocal [place] eyeglasses on 06/01/2023. OPT HT entered consult(s) as requested for provider signature. /asiya/ ILIA PLUMMER OPTOMETRY TECH Signed: 06/03/2023 10:24 SHANA NASH [facility]
--- OUTSIDE RECORDS SUMMARY | 2024-03-25 08:25 | XMS_ITS | Encounter Summary ---
Author Name [place] Organization [place] Address [address] [place] [id number] Care Team Providers Care Field Applications Specialist Name Role Phone RADHA SOUTH Primary Care [...] to Policy [facility] PL Sep 13, 2017 [id number] [place] PATIENT MEDICARE (WNR) MEDICARE (M) PART B Sep 14, 2007 PART B [id number] [phone] [place] PATIENT MEDICARE (WNR) MEDICARE (M) PART B Sep 14, 2007 PART B [id number] [place] PATIENT MEDICARE (WNR) MEDICARE (M) PART A May 14, 2006 PART A [id number] [place] PATIENT MEDICARE (WNR) MEDICARE (M) PART A May 14, 2006 PART A [id number] [place] PATIENT Selected Encounter This section includes the information on record at [place] for the Encounter. Date/Time Encounter Type Encounter Description Reason Provider Source Jun 26, 2023 10:00 AM PSYTX W PT 30 MINUTES PCMHI INDIV ICD-10-CM Z63.4 Disappearance and of family member KARY BEYER [facility] Encounter Template Text not used by [place] Assessments - Encounter Diagnoses This section includes the primary and secondary diagnoses documented for the Encounter. Date/Time Primary/Secondary Diagnosis Diagnosis Name Provider Source July 17, 2023 11:30 AM PRIMARY Disappearance and of family member KARY BEYER [place] Plan of Treatment: Future Appointments (+ 6 months) and Future Tests (+/- 45 days) The Plan of Treatment section includes future care activities for the patient from all [place] [facility]. This section includes future appointments and future orders which are active, pending or scheduled. Future Appointments This section includes appointments that were scheduled to occur 6 months from the date of the Encounter, up to a maximum of 20 appointments. The data comes from all [facility] facilities. Appointment Date/Time Appointment Type Appointme nt Facility Name July 24, 2023 10:00 AM AMBULATORY - PSYCHIATRY [facility] August 06, 2023 10:00 AM AMBULATORY PSYCHIATRY [facility] Aug 20, 2023 10:00 AM AMBULATORY PSYCHIATRY [facility] Sep 07, 2023 09:00 AM [facility] MED[facility] Sep 24, 2023 10:00 AM [facility] Oct 05, 2023 10:00 AM [facility] Oct 22, 2023 10:00 AM [facility] PSYCHIATRY [facility] Social History: Smoking Status (Most current) and Tobacco Use (All prior to encounter date) This section includes the most current, and the historical, smoking and tobacco- related health factors from the [place] facility where the Encounter took place. Current Smoking Status This section includes the most current smoking, or tobacco-related health factor, from the [place] facility where the Encounter took place. Date/Time Current Smoking Status Comment Indu zamora Sep 02, 2022 10:30 AM [facility] [place] Tobacco Use History This section includes a history of the smoking, or tobacco-related health factors, that were collected on or before the date of the Encounter. The data comes from the [place] facility where the Encounter took place. Date/Time Smoking Status/Tobacco Use Comment F acility Dec 27, 2020 10:00 AM VA-TOBACCO NEVER USED [place] Feb 28, 2019 10:10 AM VA-TOBACCO NEVER USED [place] Sep 14, 2017 09:54 AM LIFETIME NON-TOBACCO USER [place] Sep 01, 2016 01:01 PM LIFETIME NON-TOBACCO USER [place] Jul 02, 2015 01:09 PM LIFETIME NON-TOBACCO USER [place] May 08, 2009 01:08 PM LIFETIME NON-TOBACCO USER [place] Encounter Notes: All associated encounter notes This section contains the clinical notes associated to the Encounter. Date/Time Encounter Note(s) Provider Source Jun 26, 2023 10:00 AM [facility] NOTE: LOCAL TITLE: PRIMARY MENTAL HEALTH OUTPATIENT FOLLOW UP NOTE STANDARD TITLE: MENTAL HEALTH OUTPATIENT NOTE DATE OF NOTE: JUN 26, 2023@10:00 ENTRY DATE: JUN 26, 2023@10:44:24 AUTHOR: KARY BEYER EXP COSIGNER: URGENCY: STATUS: COMPLETED VISIT DURATION: 30 min VISIT TYPE: Individual, ynfy-nc-fmzv, follow-up visit PCP: RADHA GREENE DIAGNOSIS: Uncomplicated bereavement REASON FOR FOLLOW UP: Grief VET'S STATEMENT OF GOAL AND CONCERNS: The states he is doing better his bmozcfu-br-hcy remains in the hospital and will require heart surgery. He continues to find his daughter very helpful with squaring away his 's affairs. He shares that the cemetery stone and marker have been ordered and will arrive in a number of weeks. He continues to visit the cemetery daily. He states his grief is a little better. INTERVENTION: Supportive Therapy Interventions The expresses a wish to have more togetherness among his children. He shared a story about why his sons do not get along well. He states after this period of grief and adjustment. He would like to get back to his social connections. requested follow-up visit. DIAGNOSTIC IMPRESSIONS/PLAN: is an 82-year-old man who presents with grief related to his 's passing 4 months ago. He appears to have good coping at this time. agrees to 1 month follow-up visit to reassess adjustment and coping. CURRENT IMPRESSION OF LETHALITY RISK / PLAN FOR RISK MANAGEMENT: [place] presents at low risk of harm to self or others at this time. INTERDICIPLINARY TREATMENT PLANNING INVOLVING: PACT PLAN FOR FOLLOW-UP: 4 weeks, zefg-ex-wmmy /asiya/ KARY BEYER PSYD CLINICAL PSYCHOLOGIST Signed: 06/26/2023 14:20 KARY BEYER
--- OUTSIDE RECORDS SUMMARY | 2024-03-25 08:26 | XMS_ITS | Encounter Summary ---
Author Name Department [place] Organization [place] Address [address] [place] [address] Care Team Providers Care Special Education Preschool Teacher Name Role Phone RADHA SOUTH Primary Care [...] to Policy [facility] Sep 13, 2017 [id number] [place] PATIENT MEDICARE (WNR) MEDICARE (M) PART B Sep 14, 2007 PART B [id number] [place] PATIENT MEDICARE (WNR) MEDICARE (M) PART B Sep 14, 2007 PART B [id number] [phone] [place] PATIENT MEDICARE (WNR) MEDICARE (M) PART A May 14, 2006 PART A [id number] [place] PATIENT MEDICARE (WNR) MEDICARE (M) PART A May 14, 2006 PART A [id number] [place] PATIENT Selected Encounter This section includes the information on record at [place] for the Encounter. Date/Time Encounter Type Encounter Description Reason Provider Source August 06, 2023 10:00 AM PSYTX W PT 30 MINUTES PCMHI INDIV ICD-10-CM Z63.4 Disappearance and of family member KARY BEYER [facility] Encounter Template Text not used by [place] Assessments - Encounter Diagnoses This section includes the primary and secondary diagnoses documented for the Encounter. Date/Time Primary/Secondary Diagnosis Diagnosis Name Provider Source Sep 23, 2023 11:11 AM PRIMARY Disappearance and of family member KARY BEYER [place] Plan of Treatment: Future Appointments (+ 6 months) and Future Tests (+/- 45 days) The Plan of Treatment section includes future care activities for the patient from all [place] [facility]. This section includes future appointments and future orders which are active, pending or scheduled. Future Appointments This section includes appointments that were scheduled to occur 6 months from the date of the Encounter, up to a maximum of 20 appointments. The data comes from all [facility] facilities. Appointment Date/Time Appointment Type Appointme nt Facility Name Aug 20, 2023 10:00 AM AMBULATORY - PSYCHIATRY [facility] Sep 07, 2023 09:00 AM AMBULATORY MEDICINE [facility] Sep 24, 2023 10:00 AM [facility] PSYCHIATRY [facility] Oct 05, 2023 10:00 AM [facility] MEDICINE [facility] Oct 22, 2023 10:00 AM [facility] Feb 05, 2024 10:00 AM AMBULATORY MEDICINE [facility] Social History: Smoking Status (Most current) and Tobacco Use (All prior to encounter date) This section includes the most current, and the historical, smoking and tobacco- related health factors from the [place] facility where the Encounter took place. Current Smoking Status This section includes the most current smoking, or tobacco-related health factor, from the [place] facility where the Encounter took place. Date/Time Current Smoking Status Comment Indu zamora Sep 02, 2022 10:30 AM [place]-TOBACCO NEVER USED [place] Tobacco Use History This section includes a history of the smoking, or tobacco-related health factors, that were collected on or before the date of the Encounter. The data comes from the [place] facility where the Encounter took place. Date/Time Smoking Status/Tobacco Use Comment Julito acgerald Dec 27, 2020 10:00 AM VA-TOBACCO NEVER USED [place] Feb 28, 2019 10:10 AM VA-TOBACCO NEVER USED [place] Sep 14, 2017 09:54 AM LIFETIME NON-TOBACCO USER [place] Sep 01, 2016 01:01 PM LIFETIME NON-TOBACCO USER [place] Jul 02, 2015 01:09 PM LIFETIME NON-TOBACCO USER [place] May 08, 2009 01:08 PM LIFETIME NON-TOBACCO USER [place] Encounter Notes: All associated encounter notes This section contains the clinical notes associated to the Encounter. Date/Time Encounter Note(s) Provider Source August 06, 2023 02:22 PM [facility]: LOCAL TITLE: PRIMARY MENTAL HEALTH OUTPATIENT FOLLOW UP NOTE STANDARD TITLE: MENTAL HEALTH OUTPATIENT NOTE DATE OF NOTE: AUGUST 06, 2023@14:22 ENTRY DATE: AUGUST 06, 2023@14:22:59 AUTHOR: KARY BEYER EXP COSIGNER: URGENCY: STATUS: COMPLETED VISIT DURATION: 30 min VISIT TYPE: Individual, qhqb-gl-eisj, follow-up visit PCP: DR. SOUTH DIAGNOSIS: Uncomplicated bereavement REASON FOR FOLLOW UP: Grief VET'S STATEMENT OF GOAL AND CONCERNS: The reports he is doing okay. He continues to sort through the paperwork related to his 's accounts, and states things are stable at home. He gathered with his children on Mother's Day, although he was not able to get them altogether at once. A fued remains between his 2 sons. INTERVENTION: Supportive Therapy Interventions requested follow-up visit. DIAGNOSTIC IMPRESSIONS/PLAN: [place] is an 82-year-old man who presents with grief related to his 's passing 5 months ago. He appears to have good coping at this time. requests follow-up visit for emotional support. CURRENT IMPRESSION OF LETHALITY RISK / PLAN FOR RISK MANAGEMENT: [place] presents at low risk of harm to self or others at this time. INTERDICIPLINARY TREATMENT PLANNING INVOLVING: PACT PLAN FOR FOLLOW-UP: 2 weeks, bxyh-ef-gdzt Depression Screening: Perform PHQ-2 A PHQ-2 screen was performed. The score was 2 which is a negative screen for depression. Over the past two weeks, how often have you been bothered by the following problems? 1. Little interest or pleasure in doing things Several days 2. Feeling down, depressed, or hopeless Several days /asiya/ KARY BEYER PSYD CLINICAL PSYCHOLOGIST Signed: 08/27/2023 07:32 KARY BEYER
--- OUTSIDE RECORDS SUMMARY | 2024-03-25 08:26 | XMS_ITS | Encounter Summary ---
Author Name [facility] [place] Address [address] [place] [address] Care Team Providers Care Professor Of Economics Name Role Phone RADHA SOUTH Primary Care [...] AGENC Y SUPP PL Sep 13, 2017 [id number] [id number] [place] PATIENT MEDICARE (WNR) MEDICARE (M) PART B Sep 14, 2007 PART B [id number] [place] PATIENT MEDICARE (WNR) MEDICARE (M) PART B Sep 14, 2007 PART B [id number] [phone] [place] PATIENT MEDICARE (WNR) MEDICARE (M) PART A May 14, 2006 PART A [id number] [place] PATIENT MEDICARE (WNR) MEDICARE (M) PART A May 14, 2006 PART A [id number] [phone] [place] PATIENT Selected Encounter This section includes the information on record at [place] for the Encounter. Date/Time Encounter Type Encounter Description Reason Provider Source Sep 07, 2023 09:00 AM OFFICE O/P EST LOW 20 MIN PRIMARY CARE/MEDICINE ICD-10-CM R49.0 Dysphonia BRANNONRASHID Trevor Encounter Template Text not used by [place] Assessments - Encounter Diagnoses This section includes the primary and secondary diagnoses documented for the Encounter. Date/Time Primary/Secondary Diagnosis Diagnosis Name Provider Source Oct 03, 2023 07:00 AM PRIMARY Dysphonia IAN SOUTH [place] Plan of Treatment: Future Appointments (+ 6 months) and Future Tests (+/- 45 days) The Plan of Treatment section includes future care activities for the patient from all [place] [facility]. This section includes future appointments and future orders which are active, pending or scheduled. Future Appointments This section includes appointments that were scheduled to occur 6 months from the date of the Encounter, up to a maximum of 20 appointments. The data comes from all [place] treatment facilities. Appointment Date/Time Appointment Type Appointme nt Facility Name Sep 24, 2023 10:00 AM AMBULATORY - PSYCHIATRY [facility] Oct 05, 2023 10:00 AM AMBULATORY MEDICINE [facility] Oct 22, 2023 10:00 AM AMBULATORY - PSYCHIATRY [facility] Feb 05, 2024 10:00 AM AMBULATORY MEDICINE [facility] Feb 09, 2024 08:30 AM AMBULATORY MEDICINE [facility] Social History: Smoking Status (Most current) and Tobacco Use (All prior to encounter date) This section includes the most current, and the historical, smoking and tobacco- related health factors from the [place] facility where the Encounter took place. Current Smoking Status This section includes the most current smoking, or tobacco-related health factor, from the [place] facility where the Encounter took place. Date/Time Current Smoking Status Comment Indu ity Aug 20, 2023 10:00 AM [place]-TOBACCO NEVER USED [facility] Tobacco Use History This section includes a history of the smoking, or tobacco-related health factors, that were collected on or before the date of the Encounter. The data comes from the [place] facility where the Encounter took place. Date/Time Smoking Status/Tobacco Use Comment F acgerald Sep 02, 2022 10:30 AM [place]-TOBACCO NEVER USED [facility] Dec 27, 2020 10:00 AM [place]-TOBACCO NEVER US[place] [facility] Feb 28, 2019 10:10 AM [place]-TOBACCO NEVER USED [facility] Sep 14, 2017 09:54 AM LIFETIME NON-TOBACCO USER [facility] Sep 01, 2016 01:01 PM LIFETIME NON-TOBACCO USER [facility] Jul 02, 2015 01:09 PM LIFETIME NON-TOBACCO USER [facility] May 08, 2009 01:08 PM LIFETIME NON-TOBACCO USER [facility] Encounter Notes: All associated encounter notes This section contains the clinical notes associated to the Encounter. Date/Time Encounter Note(s) Provider Source Sep 07, 2023 09:09 AM PREVENTIVE MEDICIN E NURSING NOTE: LOCAL TITLE: CLINICAL REMINDERS/NURSING STANDARD TITLE: PREVENTIVE MEDICINE NURSING NOTE DATE OF NOTE: SEP 07, 2023@09:09 ENTRY DATE: SEP 07, 2023@09:09:14 AUTHOR: GLORIA RAMOS EXP COSIGNER: URGENCY: STATUS: COMPLETED Advance Directive Screen MH AD: Patient does not have a completed advance directive on file at any facility, [facility] or outside. S/he is not interested in completing one at this time. The patient received education about Advance Directives and written notification of his/her rights. Falls & Incontinence Screen: Falls Screen: During the past 12 months, did the patient report any falls? 4. No falls within the past year. Incontinence Screen: During the past 12 months, has the patient has any characteristics of incontinence (ability, voiding, leakage, etc.)? No incontinence. COVID-19 Immunization: Refused Moderna Monovalent COVID-19 vaccine Immunization: COVID-19 (MODERNA), MRNA, LNP-S, PF, 50 MCG/0.5 ML (AGES 12+ YEARS) Refusal Reason: PATIENT DECISION Patient refuses all immunization(s) in the COVID-19 group Date Documented: 09/07/23 09:12 MED REC COMPLETED BY PROVIDER DURING VISIT. /asiya/ GLORIA RAMOS LPN LPN Signed: 09/07/2023 09:13 GLORIA RAMOS Sep 07, 2023 08:19 AM PHYSICIAN NOTE: LOCAL TITLE: MD NOTE STANDARD TITLE: PHYSICIAN NOTE DATE OF NOTE: SEP 07, 2023@08:19 ENTRY DATE: SEP 07, 2023@08:19:25 AUTHOR: RADHA SOUTH EXP COSIGNER: URGENCY: STATUS: COMPLETED SUBJECT: 3mo REASON FOR VISIT/CHIEF COMPLAINT: Hoarseness for several months on and off. Denies smoking history. +second hand smoke.+ Previously worked at the [employer] GERD on PPI, apprx 4 beers a week Brother has similar problem and has surgery done on his throat(!) Unknown malignancy with mother and sister. 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 Expected difficulty coping. Followed in the recent past by [facility]; declines referral but will reach out to [facility] if not doing well. Allergies discussed. 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 INTERVAL HISTORY: Spouse passed 5mo ago PHYSICAL EXAMINATION: BP:137/73 (09/07/2023 09:08) Resp:20 (09/07/2023 09:08) Temp:96.8 F [36.0 C] (09/07/2023 09:08) Pulse:65 (09/07/2023 09:08) WEIGHT 09/07/2023 09:08 180(81.65)[27] 06/05/2023 12:01 173(78.47)[26] 03/02/2023 10:12 171.6(77.84)[26] Hoarseness (no wrose than norm) No neck masses including LNadenoapathy INTERVAL LABS: Collection DT Spec TSH 10/28/2022 09:30 SERUM 1.65 ASSESSMENT & PLAN: Dysphonia, chronic - for ENT consult; encouraged to note which triggers the hoarseness. He denies excessive use of voice inclding singing/shouting (has a reserrved disposition). Comorbid alcohol as well GERD on PPI. Plan of care discussed with patient who articulates understanding. /asiya/ RADHA SOUTH MD PHYSICIAN Signed: 09/07/2023 09:24 RADHA SOUTH [facility]
--- OUTSIDE RECORDS SUMMARY | 2024-03-25 08:26 | XMS_ITS | Encounter Summary ---
Author Name [facility] [place] Address [address] [place] [address] Care Team Providers Care Commutator Assembler Name Role Phone RADHA SOUTH Primary Care [...] to Policy [facility] Sep 13, 2017 [id number] [place] PATIENT MEDICARE (WNR) MEDICARE (M) PART B Sep 14, 2007 PART B [id number] [phone] [place] PATIENT MEDICARE (WNR) MEDICARE (M) PART B Sep 14, 2007 PART B [id number] [phone] [place] PATIENT MEDICARE (WNR) MEDICARE (M) PART A May 14, 2006 PART A [id number] [place] PATIENT MEDICARE (WNR) MEDICARE (M) PART A May 14, 2006 PART A [id number] [phone] [place] PATIENT Selected Encounter This section includes the information on record at [place] for the Encounter. Date/Time Encounter Type Encounter Description Reason Provider Source Aug 20, 2023 10:00 AM PSYTX W PT 30 MINUTES PCMHI INDIV ICD-10-CM Z63.4 Disappearance and of family member KARY BEYER [facility] Encounter Template Text not used by [place] Assessments - Encounter Diagnoses This section includes the primary and secondary diagnoses documented for the Encounter. Date/Time Primary/Secondary Diagnosis Diagnosis Name Provider Source Sep 23, 2023 11:11 AM PRIMARY Disappearance and of family member KARY BEYER [place] Plan of Treatment: Future Appointments (+ 6 months) and Future Tests (+/- 45 days) The Plan of Treatment section includes future care activities for the patient from all [place] [facility]. This section includes future appointments and future orders which are active, pending or scheduled. Future Appointments This section includes appointments that were scheduled to occur 6 months from the date of the Encounter, up to a maximum of 20 appointments. The data comes from all [place] treatment facilities. Appointment Date/Time Appointment Type Appointme nt Facility Name Sep 07, 2023 09:00 AM [facility] Sep 24, 2023 10:00 AM AMBULATORY - PSYCHIATRY [facility] Oct 05, 2023 10:00 AM [facility] Oct 22, 2023 10:00 AM AMBULATORY PSYCHIATRY [facility] Feb 05, 2024 10:00 AM [facility] Feb 09, 2024 08:30 AM AM[facility]ULATORY [facility] Social History: Smoking Status (Most current) and Tobacco Use (All prior to encounter date) This section includes the most current, and the historical, smoking and tobacco- related health factors from the [place] facility where the Encounter took place. Current Smoking Status This section includes the most current smoking, or tobacco-related health factor, from the [place] facility where the Encounter took place. Date/Time Current Smoking Status Comment Indu zamora Aug 20, 2023 10:00 AM [place]-TOBACCO NEVER USED [place] Tobacco Use History This section includes a history of the smoking, or tobacco-related health factors, that were collected on or before the date of the Encounter. The data comes from the [place] facility where the Encounter took place. Date/Time Smoking Status/Tobacco Use Comment F acgerald Sep 02, 2022 10:30 AM [place]-TOBACCO NEVER USED [place] Dec 27, 2020 10:00 AM [place]-TOBACCO NEVER USED [place] Feb 28, 2019 10:10 AM [place]-TOBACCO NEVER USED [place] Sep 14, 2017 09:54 AM LIFETIME NON-TOBACCO USER [place] Sep 01, 2016 01:01 PM LIFETIME NON-TOBACCO USER [place] Jul 02, 2015 01:09 PM LIFETIME NON-TOBACCO USER [place] May 08, 2009 01:08 PM LIFETIME NON-TOBACCO USER [place] Encounter Notes: All associated encounter notes This section contains the clinical notes associated to the Encounter. Date/Time Encounter Note(s) Provider Source Aug 20, 2023 10:00 [facility] NOTE: LOCAL TITLE: PRIMARY MENTAL HEALTH OUTPATIENT FOLLOW UP NOTE STANDARD TITLE: MENTAL HEALTH OUTPATIENT NOTE DATE OF NOTE: AUG 20, 2023@10:00 ENTRY DATE: AUG 20, 2023@10:58:50 AUTHOR: KARY BEYER EXP COSIGNER: URGENCY: STATUS: COMPLETED VISIT DURATION: 30 min VISIT TYPE: Individual, [id number], follow-up visit PCP: DR. SOUTH DIAGNOSIS: Uncomplicated bereavement REASON FOR FOLLOW UP: Grief VET'S STATEMENT OF GOAL AND CONCERNS: The [place] reports things are getting better with time. He continues to visit his 's grave daily. He reports things are stable with work and family. INTERVENTION: Supportive Therapy Interventions Discussed termination. reports benefit from supportive therapy, declines referral for further therapy in or the community. We agreed to 1-2 final visits. DIAGNOSTIC IMPRESSIONS/PLAN: is an 82-year-old man who presents with grief related to his 's passing 5 months ago. He appears to have good coping at this time. [place] requests follow-up visit for emotional support. CURRENT IMPRESSION OF LETHALITY RISK / PLAN FOR RISK MANAGEMENT: presents at low risk of harm to self or others at this time. INTERDICIPLINARY TREATMENT PLANNING INVOLVING: PACT PLAN FOR FOLLOW-UP: 2 weeks, [id number] Tobacco Use Screening: The patient has never used tobacco. Alcohol Use Screen (AUDIT-C): Alcohol Screen: SCREEN FOR ALCOHOL (AUDIT-C) An alcohol screening test (AUDIT-C) was negative (score=3). 1. How often did you have a drink containing alcohol in the past year? Consider a drink to be a 12 ounce can or bottle of regular beer, 8 ounces of malt liquor, a 5 ounce glass of table wine, or a 1.5 ounce shot of liquor (like scotch, gin, or vodka). Two to three times per week 2. How many drinks containing alcohol did you have on a typical day when you were drinking in the past year? One or two drinks 3. How often did you have six or more drinks on one occasion in the past year? Never Sexual Orientation: The patient thinks of their sexual orientation as: Straight or Heterosexual /es/ KARY BEYER PSYD CLINICAL PSYCHOLOGIST Signed: 08/27/2023 07:35 KARY BEYER
--- OUTSIDE RECORDS SUMMARY | 2024-03-25 08:26 | XMS_ITS | Encounter Summary ---
Author Name [facility] [place] Address [address] [place] [address] Care Team Providers Care Editor Department Name Role Phone RADHA SOUTH Primary Care [...] to Policy [facility] Sep 13, 2017 [id number] [phone] [place] PATIENT MEDICARE (WNR) MEDICARE (M) PART B Sep 14, 2007 PART B [id number] [place] PATIENT MEDICARE (WNR) MEDICARE (M) PART B Sep 14, 2007 PART B [id number] [phone] [place] PATIENT MEDICARE (WNR) MEDICARE (M) PART A May 14, 2006 PART A [id number] [place] PATIENT MEDICARE (WNR) MEDICARE (M) PART A May 14, 2006 PART A [id number] [place] PATIENT Selected Encounter This section includes the information on record at [place] for the Encounter. Date/Time Encounter Type Encounter Description Reason Provider Source July 24, 2023 10:00 AM PSYTX W PT 30 MINUTES PCMHI INDIV ICD-10-CM Z63.4 Disappearance and of family member KARY BEYER [facility] Encounter Template Text not used by [place] Assessments - Encounter Diagnoses This section includes the primary and secondary diagnoses documented for the Encounter. Date/Time Primary/Secondary Diagnosis Diagnosis Name Provider Source Aug 20, 2023 03:55 PM PRIMARY Disappearance and of family member KARY BEYER [place] Plan of Treatment: Future Appointments (+ 6 months) and Future Tests (+/- 45 days) The Plan of Treatment section includes future care activities for the patient from all [place] [facility]. This section includes future appointments and future orders which are active, pending or scheduled. Future Appointments This section includes appointments that were scheduled to occur 6 months from the date of the Encounter, up to a maximum of 20 appointments. The data comes from all [facility] facilities. Appointment Date/Time Appointment Type Appointme nt Facility Name August 06, 2023 10:00 AM AMBULATORY - PSYCHIATRY [facility] Aug 20, 2023 10:00 AM AMBULATORY PSYCHIATRY [facility] Sep 07, 2023 09:00 AM AMBULATORY MEDICINE [facility] Sep 24, 2023 10:00 AM [facility] Oct 05, 2023 10:[address] [facility] MEDICINE [facility] Oct 22, 2023 10:[address] [facility] PSYCHIATRY [facility] Social History: Smoking Status (Most current) and Tobacco Use (All prior to encounter date) This section includes the most current, and the historical, smoking and tobacco- related health factors from the [place] facility where the Encounter took place. Current Smoking Status This section includes the most current smoking, or tobacco-related health factor, from the [place] facility where the Encounter took place. Date/Time Current Smoking Status Comment Indu zamora Sep 02, 2022 10:30 AM [facility] [place] Tobacco Use History This section includes a history of the smoking, or tobacco-related health factors, that were collected on or before the date of the Encounter. The data comes from the [place] facility where the Encounter took place. Date/Time Smoking Status/Tobacco Use Comment F acility Dec 27, 2020 10:00 AM [facility] [place] Feb 28, 2019 10:10 AM [place]-TOBACCO NEVER USED [place] Sep 14, 2017 09:54 AM LIFETIME NON-TOBACCO USER [place] Sep 01, 2016 01:01 PM LIFETIME NON-TOBACCO USER [place] Jul 02, 2015 01:09 PM LIFETIME NON-TOBACCO USER [place] May 08, 2009 01:08 PM LIFETIME NON-TOBACCO USER [place] Encounter Notes: All associated encounter notes This section contains the clinical notes associated to the Encounter. Date/Time Encounter Note(s) Provider Source July 24, 2023 10:00 [facility] NOTE: LOCAL TITLE: PRIMARY MENTAL HEALTH OUTPATIENT FOLLOW UP NOTE STANDARD TITLE: MENTAL HEALTH OUTPATIENT NOTE DATE OF NOTE: JULY 24, 2023@10:00 ENTRY DATE: JULY 27, 2023@08:48:58 AUTHOR: KARY BEYER EXP COSIGNER: URGENCY: STATUS: COMPLETED VISIT DURATION: 30 min VISIT TYPE: Individual, [id number], follow-up visit PCP: DR. SOUTH DIAGNOSIS: Uncomplicated bereavement REASON FOR FOLLOW UP: Grief VET'S STATEMENT OF GOAL AND CONCERNS: The [place] reports things are getting better with time. He states he is in need of 2 knee replacements but he plans to put off surgery until after he works the [employer] in November. He states he will be getting cortisone shots in September. The [place] reports he plans to send 2 of his children to use the vacation house this summer as he is not up to going without his , who in February. He is hoping to get his children together for dinner on Mother's Day despite the ongoing feud between his 2 sons. INTERVENTION: Supportive Therapy Interventions requested follow-up visit. DIAGNOSTIC IMPRESSIONS/PLAN: [place] is an 82-year-old man who presents with grief related to his 's passing 5 months ago. He appears to have good coping at this time. [place] requests follow-up visit for emotional support. CURRENT IMPRESSION OF LETHALITY RISK / PLAN FOR RISK MANAGEMENT: [place] presents at low risk of harm to self or others at this time. INTERDICIPLINARY TREATMENT PLANNING INVOLVING: PACT PLAN FOR FOLLOW-UP: 2 weeks, [id number] /asiya/ KARY BEYER PSYD CLINICAL PSYCHOLOGIST Signed: 07/27/2023 09:14 KARY BEYER
--- OUTSIDE RECORDS SUMMARY | 2024-03-25 08:26 | XMS_ITS | Encounter Summary ---
Author Name [facility] [place] Organization [place] Address [address] [place] [id number] Care Team Providers Care Polisher Eyeglass Frames Name Role Phone RADHA SOUTH Primary Care [...] to Policy [facility] Sep 13, 2017 [id number] [place] PATIENT MEDICARE (WNR) MEDICARE (M) PART B Sep 14, 2007 PART B [id number] [place] PATIENT MEDICARE (WNR) MEDICARE (M) PART B Sep 14, 2007 PART B [id number] [place] PATIENT MEDICARE (WNR) MEDICARE (M) PART A May 14, 2006 PART A [id number] [place] PATIENT MEDICARE (WNR) MEDICARE (M) PART A May 14, 2006 PART A [id number] [place] PATIENT Selected Encounter This section includes the information on record at [place] for the Encounter. Date/Time Encounter Type Encounter Description Reason Provider Source Sep 24, 2023 10:00 AM PSYTX W PT 30 MINUTES PCMHI INDIV ICD-10-CM Z63.4 Disappearance and of family member KARY BEYER [facility] Encounter Template Text not used by [place] Assessments - Encounter Diagnoses This section includes the primary and secondary diagnoses documented for the Encounter. Date/Time Primary/Secondary Diagnosis Diagnosis Name Provider Source Nov 04, 2023 01:18 PM PRIMARY Disappearance and of family member KARY BEYER [place] Plan of Treatment: Future Appointments (+ 6 months) and Future Tests (+/- 45 days) The Plan of Treatment section includes future care activities for the patient from all [place] [facility]. This section includes future appointments and future orders which are active, pending or scheduled. Future Appointments This section includes appointments that were scheduled to occur 6 months from the date of the Encounter, up to a maximum of 20 appointments. The data comes from all [place] treatment facilities. Appointment Date/Time Appointment Type Appointme nt Facility Name Oct 05, 2023 10:00 AM AMBULATORY - MEDICINE [facility] Oct 22, 2023 10:00 AM AMBULATORY - PSYCHIATRY [facility] Feb 05, 2024 10:00 AM AMBULATORY - MEDICINE [facility] Feb 09, 2024 08:30 AM AMBULATORY MEDICINE [facility] Social History: Smoking Status (Most current) and Tobacco Use (All prior to encounter date) This section includes the most current, and the historical, smoking and tobacco- related health factors from the [place] facility where the Encounter took place. Current Smoking Status This section includes the most current smoking, or tobacco-related health factor, from the [place] facility where the Encounter took place. Date/Time Current Smoking Status Comment Indu zamora Aug 20, 2023 10:00 AM [place]-TOBACCO NEVER USED [place] Tobacco Use History This section includes a history of the smoking, or tobacco-related health factors, that were collected on or before the date of the Encounter. The data comes from the [place] facility where the Encounter took place. Date/Time Smoking Status/Tobacco Use Comment F kody Sep 02, 2022 10:30 AM [place]-TOBACCO NEVER USED [place] Dec 27, 2020 10:00 AM [place]-TOBACCO NEVER USED [place] Feb 28, 2019 10:10 AM [place]-TOBACCO NEVER USED [place] Sep 14, 2017 09:54 AM LIFETIME NON-TOBACCO USER [place] Sep 01, 2016 01:01 PM LIFETIME NON-TOBACCO USER [place] Jul 02, 2015 01:09 PM LIFETIME NON-TOBACCO USER [place] May 08, 2009 01:08 PM LIFETIME NON-TOBACCO USER [place] Encounter Notes: All associated encounter notes This section contains the clinical notes associated to the Encounter. Date/Time Encounter Note(s) Provider Source Sep 24, 2023 10:00 [facility] LOCAL TITLE: PRIMARY MENTAL HEALTH OUTPATIENT FOLLOW UP NOTE STANDARD TITLE: MENTAL HEALTH OUTPATIENT NOTE DATE OF NOTE: SEP 24, 2023@10:00 ENTRY DATE: SEP 24, 2023@10:48:44 AUTHOR: KARY BEYER EXP COSIGNER: URGENCY: STATUS: COMPLETED VISIT DURATION: 30 min VISIT TYPE: Individual, [id number], follow-up visit PCP: DR. SOUTH DIAGNOSIS: Uncomplicated bereavement REASON FOR FOLLOW UP: Grief VET'S STATEMENT OF GOAL AND CONCERNS: It is getting easier to talk about it . The reports he recently had to put his 's 18-year-old cat to sleep. He has been keeping cool in the summer heat though he has not been in his own backyard pool. INTERVENTION: Supportive Therapy Interventions Discussed termination. We agreed to 1 final visit. DIAGNOSTIC IMPRESSIONS/PLAN: [place] is an 82-year-old man who presents with grief related to his 's passing 5 months ago. He appears to have good coping at this time. [place] requests final follow-up visit for emotional support. CURRENT IMPRESSION OF LETHALITY RISK / PLAN FOR RISK MANAGEMENT: presents at low risk of harm to self or others at this time. INTERDICIPLINARY TREATMENT PLANNING INVOLVING: PACT PLAN FOR FOLLOW-UP: 3 weeks, [id number] /asiya/ KARY BEYER PSYD CLINICAL PSYCHOLOGIST Signed: 10/23/2023 14:40 KARY BEYER
--- OUTSIDE RECORDS SUMMARY | 2024-03-25 08:27 | XMS_ITS ---
Author Name [facility] [place] [facility] [place] Address [address] [place] [id number] Care Team Providers Care Online Editor Name Role Phone RADHA SOUTH Primary Care [...] to Policy [facility] Sep 13, 2017 [id number] [phone] [place] PATIENT MEDICARE (WNR) MEDICARE (M) PART B Sep 14, 2007 PART B [id number] [place] PATIENT MEDICARE (WNR) MEDICARE (M) PART B Sep 14, 2007 PART B [id number] LEONARDOSHELL HERNANDEZ PATIENT MEDICARE (WNR) MEDICARE (M) PART A May 14, 2006 PART A [id number] [phone] [place] PATIENT MEDICARE (WNR) MEDICARE (M) PART A May 14, 2006 PART A [id number] LEONARDOWILLIAM MurraySHELL PATIENT Selected Encounter This section includes the information on record at [place] for the Encounter. Date/Time Encounter Type Encounter Description Reason Provider Source Oct 05, 2023 10:00 AM OFFICE O/P NEW MOD 45 MIN OTOLARYNGOLOGY/EN T ICD-10-CM K21.9 Gastro-esophageal reflux disease without esophagitis ADAM MCFADDEN [facility] Encounter Template Text not used by [place] Assessments - Encounter Diagnoses This section includes the primary and secondary diagnoses documented for the Encounter. Date/Time Primary/Secondary Diagnosis Diagnosis Name Provider Source Nov 17, 2023 10:08 AM PRIMARY Gastro-esophageal reflux disease without esophagitis ADAM MCFADDEN [facility] Plan of Treatment: Future Appointments (+ 6 months) and Future Tests (+/- 45 days) The Plan of Treatment section includes future care activities for the [facility] [place] [facility] This section includes future appointments and future orders which are active, pending or scheduled. Future Appointments This section includes appointments that were scheduled to occur 6 months from the date of the Encounter, up to a maximum of 20 appointments. The data comes from all [place] treatment facilities. Appointment Date/Time Appointment Type Appointme nt Facility Name Oct 22, 2023 10:00 AM AMBULATORY - PSYCHIATRY [facility] Feb 05, 2024 10:00 AM AMBULATORY - MEDICINE [facility] Feb 09, 2024 08:30 AM AMBULATORY MEDICINE [facility] Vital Signs: All taken on the encounter date This section contains inpatient and outpatient Vital Signs collected on the date of the Encounter. Date/Time Temperature Pulse Blood Pressure Respiratory Rate SP02 Pain Height Weight Body Mass Index Source Oct 05, 2023 10:01 AM 97.5 68 144/63 18 97 0 172.5 26 [facility] Encounter Notes: All associated encounter notes This section contains the clinical notes associated to the Encounter. Date/Time Encounter Note(s) Provider Source Oct 05, 2023 10:24 AM OTOLARYNGOLOGY CONSULT: LOCAL TITLE: CONSULT REPORT/OTOLARYNGOLOGY STANDARD TITLE: OTOLARYNGOLOGY CONSULT DATE OF NOTE: OCT 05, 2023@10:24 ENTRY DATE: OCT 05, 2023@10:24:20 AUTHOR: ADAM MCFADDEN EXP COSIGNER: URGENCY: STATUS: COMPLETED CONSULT REQUESTED FROM RADHA SOUTH OCT 05, 2023 JACOBSHELL SAN is a 83 y/o NON smoker WHITE MALE, previously in [employer] FROM Sep TO Sep from [employer], w/chief complaint of INTERMITTENT HOARSENESS 83-year-old lifelong non-smoker presents with intermittent hoarseness. He states that over the last few years he will intermittently get hoarseness. He states that most recently he has been hoarse for the last month although again he states even within this timeframe he thinks it is a bit on and off. Then sometimes he will be fine for 2 or 3 months. 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 Although he does not notice that his hoarseness varies with use. He states he can ever not talk. He has no dysphagia although sometimes states that if he eats fast or has hard bread it might be a little difficult. He is edentulous without dentures. He has had no weight loss and no ear pain. He does not complain of postnasal drip. He does however have reflux. He takes omeprazole 20 mg daily and states that if he does not take it he definitely has symptoms. He does often eat late at night as he works nights. He has 1 cup of coffee in the morning but when he is working he will have soda to keep him awake. While he is a lifelong non-smoker he does have a history of secondhand smoke as his was a smoker. She this Micheal. PMHx: Active problems - Computerized Problem List is the source for the followin. Normocytic anemia 2. Prediabetes 3. Non-toxic multinodular goiter 4. Cervical Radiculopathy 5. Gastroesophageal Reflux Disorder * 6. Vitamin B1 abd B12 deficiency 7. Coronary arteriosclerosis (SNOMED CT 54091888) 8. Gastroesophageal Reflux Disorder * 9. 09-06-09: PTCA:BS:Promus: LAD 10. Surgical Arthroscopy of the Knee with Meniscectomy (Medial or Lateral) 11. Surgical Arthroscopy of the Knee with Meniscus Repair (Medial and Lateral) 12. Repair of ruptured Musculotendinous Cuff (Eg, Rotator Cuff) Open; chronic 13. Hypercholesterolemia (SNOMED CT 59891567) 14. Benign essential hypertension (SNOMED CT 0735991) 15. Frequency of Urination 16. Appendectomy 17. Repair of Retinal Detachment from Previous Surgery/Procedure 18. Sleep Apnea Service Connected Disabilities with % Eligibility: SC LESS THAN 50% VERIFIED Total S/C %: 10 TINNITUS 10% S/C MEDS: Active Outpatient Medications (including Supplies): CARBAMIDE PEROXIDE 6.5% OTIC SOLN INSTILL 5 DROPS INTO THE ACTIVE AFFECTED EAR(S) THREE TIMES DAILY NEEDED USE FOR TWO DAYS BEFORE RN APPT CETIRIZINE HCL 10MG TAB TAKE ONE TABLET BY MOUTH ONCE ACTIVE DAILY NEEDED FOR ALLERGIES MELATONIN 5MG CAP/TAB TAKE ONE CAPSULE/TABLET BY MOUTH AT ACTIVE BEDTIME NEEDED FOR INSOMNIA MENTHOL/M-SALICYLATE 10-15% TOP CREAM APPLY A THIN FILM ACTIVE TOPICALLY THREE TIMES DAILY NEEDED OMEPRAZOLE 20MG EC CAP TAKE TWO CAPSULES BY MOUTH ONCE PENDING DAILY VITAMIN B COMPLEX CAP TAKE 1 CAPSULE BY MOUTH ONCE DAILY ACTIVE FOR VITAMIN SUPPLEMENTATION Non-VA ASPIRIN 81MG CHEW TAB 81MG BY MOUTH ONCE DAILY ACTIVE Non-VA ATORVASTATIN CALCIUM 40MG TAB 20MG BY MOUTH AT ACTIVE BEDTIME Non-VA ISOSORBIDE MONONITRATE 30MG SA TAB 90MG BY MOUTH ACTIVE ONCE DAILY Non-VA METOPROLOL SUCCINATE 25MG SA TAB 25MG BY MOUTH ONCE ACTIVE DAILY Non-VA NITROGLYCERIN 0.4MG SL TAB 0.4MG UNDER THE TONGUE ACTIVE EVERY 5 MINUTES NEEDED Non-VA OMEPRAZOLE 20MG EC CAP 20MG BY MOUTH ONCE DAILY ACTIVE Non-VA OXYBUTYNIN CHLORIDE 5MG TAB 5MG BY MOUTH DAILY ACTIVE Non-VA TRAMADOL HCL 50MG TAB 50MG BY MOUTH TWICE DAILY ACTIVE NEEDED Non-VA VALSARTAN 80MG TAB 80MG BY MOUTH ONCE DAILY ACTIVE ALL: Patient has answered NKA Fam Hx: Non - contributory Soc Hx: NON-SMOKER ROS: Denies any other relavent ROS Vitals Enter at: Oct 05, 2023@10:01:48 BP: 144/63 P: 68 R: 18 T: 97.5 172.5 lb [78.24 kg] (10/05/2023 10:01) BMI: 26.3 CONSTITUTION: GENERAL APPEARANCE:Well developed, well nourished and groomed. No apparent acute or chronic distress. VERY MILD COARSE HOARSENESS HEAD, FACE, SALIVARY GLANDS AND TMJ: Palpation of Parotid and Submandibular glands: Normal. Facial Mobility: Normal. EAR, NOSE, MOUTH AND THROAT: Pinnas - normal. Otoscopic exam: RIGHT EAR: External auditory canal normal, tympanic membrane mobile LEFT EAR: External auditory canal normal, tympanic membrane mobile Nasal Interior: Turbinates and middle meatus - Inferior turbinates normal. Normal mucosa with no swelling, polyps, active bleeding or evidence of bleeding. Lips, Teeth and Gums: Lips normal. EDENTULOUS WITHOUT DENTURES Oral Cavity and Oropharynx: Oral mucosa with normal color and moisture. Anterior 2/3rds of tongue normal. Breath quality normal. Hard palate normal. Normal floor of mouth, Posterior pharynx normal. NECK AND THYROID: Neck: no adenopathy; no neck masses. RESPIRATORY: Respiratory effort normal. LYMPH NODES: Neck nodes: normal. NEUROLOGIC: Higher integrative functions: Normal orientation, memory, attention span and concentration, language, and fund of knowledge. Cranial nerves: Cranial nerves II-XII grossly intact and symmetrical. PSYCHIATRIC: Mood and affect: normal and appropriate to the situation. [id number] Laryngoscopy; flexible fiberoptic; diagnostic Informed consent was obtained. Risks, benefits, and alternatives were discussed. PROCEDURE NOTE After anesthesia was established, the lubricated scope was introduced through the nose into the larynx. All structures were examined as noted below. ANESTHESIA: Topical 4% Lidocaine and oxymetazoline FINDINGS: COBBLESTONING THE POSTERIOR PHARYNX Base of Tongue: Normal Posterior Pharynx: Normal Lateral Pharynx: Normal Vallecula: Normal Epiglottis: Normal Pyriform Sinus: Normal Arytenoids: Normal Interarytenoid Space: Normal False Cord: Normal True Cord Mucosa: ERYTHEMA ON THE POSTERIOR VOCAL CORDS LEFT GREATER THAN RIGHT, NO EVIDENCE OF MASS Larynx Mobility: Normal Subglottic Space: Normal TOLERANCE: Good ESTIMATED BLOOD LOSS: nil Assessment/Plan OCT 05, 2023: 83-year-old lifelong non-smoker presents with intermittent hoarseness. He states that over the last few years he will intermittently get hoarseness. He states that most recently he has been hoarse for the last month although again he states even within this timeframe he thinks it is a bit on and off. Then sometimes he will be fine for 2 or 3 months. 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 Although he does not notice that his hoarseness varies with use. He states he can ever not talk. He has no dysphagia although sometimes states that if he eats fast or has hard bread it might be a little difficult. He is edentulous without dentures. He has had no weight loss and no ear pain. He does not complain of postnasal drip. He does however have reflux. Physical exam shows patient with very mild coarse hoarseness, no stridor. Patient has cobblestoning the posterior pharynx and is edentulous. Fiberoptic exam shows normal base of tongue, erythema of the posterior vocal cords left greater than right with no evidence of mass. I reassured the patient there is no evidence of any laryngeal masses. 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 I have increased his omeprazole to 40 mg daily for the next 3 months. We also discussed diet modification at great length. Literature was given. Specifically I think he could benefit from using a wedge at night and decreasing his eating and drinking of carbonated beverages late at night. Patient was very receptive to dietary changes. Patient will follow-up in 3 months. It is possible that he may be getting a knee replacement sometime in the near future. All questions were answered. Complete encounter includes: Review of past medical records Time spent with patient including obtaining history, physical exam, shared decision making, procedures Counseling and answering questions Post visit documentation to include but not limited to medication and lab ordering. Total time = Minimum 40 min MEDICATION RECONCILIATION Outpatient: Has the patient been taking medications as documented in the EMLR? YES: The patient has been taking medications as documented in the EMLR. Essential Medication List for Review used to complete this medication reconciliation. INCLUDED IN THIS LIST: Alphabetical list of active outpatient prescriptions [facility]ensed from this [facility] (local) and dispensed from another [place] or [facility] facility (remote) as well as inpatient orders (local, pending and active), local clinic medications, locally documented non-VA medications, and local prescriptions that have or been discontinued in the past 90 days. - All changes in medications, including all non-VA/Herbal/OTC medications were entered into CPRS. - If there were any medications the patient should no longer take, they were discontinued. - The patient/caregiver was instructed to update this list, discard old lists, and take this list to the next appointment, whether with a VA or non-VA provider. JLV Link Data on this list may not be complete. Please check JLV. Allergies/ADRs (Tool #5) FACILITY ALLERGY/ADR -------- No Remote Allergy/ADR Data available for this patient [place] [facility] [place] [facility] No Known Allergies Med [facility] (Tool #1) INCLUDED IN THIS LIST: Alphabetical list of active outpatient prescriptions dispensed from this [facility] (local) and dispensed from another [facility] or DoD facility (remote) as well as inpatient orders (local pending and active), local clinic medications, locally documented non-VA medications, and local prescriptions that have or been discontinued in the past 90 days. Non-VA Meds Last Documented On: Jun 26, 2021 NOTE The display of VA prescriptions dispensed from another [place] or DoD facility (remote) is limited to active outpatient prescription entries matched to National Drug File at the originating site and may not include some items such as investigational drugs, compounds, etc. NOT INCLUDED IN THIS LIST: Medications self-entered by the patient into personal health records (i.e. MyFront[facility]ps) are NOT included in this list. Non-VA medications documented outside this [place], remote inpatient orders (regardless of status) and [...] AT BEDTIME Medication prescribed by Non-VA provider. OUTPT CARBAMIDE PEROXIDE 6.5% OTIC SOLN (Status = Active) INSTILL 5 DROPS INTO THE AFFECTED EAR(S) THREE TIMES DAILY NEEDED USE FOR TWO DAYS BEFORE RN APPT Rx# [id number] Last Released: 06/05/23 Qty/Days Supply: Rx Expiration Date: 06/05/24 Refills Remainin Indication: FOR EAR WAX BLOCKAGE OUTPT CETIRIZINE HCL 10MG TAB (Status = Active) TAKE ONE TABLET BY MOUTH ONCE DAILY NEEDED FOR ALLERGIES Rx# [id number] Last Released: 06/05/23 Qty/Days Supply: Rx Expiration Date: 06/05/24 Refills Remainin Indication: FOR ALLERGIES Non-VA ISOSORBIDE MONONITRATE 30MG SA TAB TAKE THREE TABLETS BY MOUTH ONCE DAILY Medication prescribed by Non-VA provider. OUTPT MELATONIN 5MG CAP/TAB (Status = Active) TAKE ONE CAPSULE/TABLET BY MOUTH AT BEDTIME NEEDED FOR INSOMNIA Rx# [id number] Last Released: 06/09/23 Qty/Days Supply: Rx Expiration Date: 06/05/24 Refills Remainin Indication: FOR INSOMNIA OUTPT MENTHOL/M-SALICYLATE 10-15% TOP CREAM (Status = Active) APPLY A THIN FILM TOPICALLY THREE TIMES DAILY NEEDED Rx# [id number] Last Released: 06/09/23 Qty/Days Supply: 90 Rx Expiration Date: 06/05/24 Refills Remainin Indication: FOR MUSCLE PAIN Non-VA [...] DAILY Medication prescribed by Non-VA provider. OUTPT OMEPRAZOLE 20MG EC CAP (Status = Pending) TAKE 2 CAPSULES BY MOUTH ONCE DAILY Login Date: 10/05/23 Qty/Days Supply: 180/90 Refills Ordered: 3 Non-VA OXYBUTYNIN CHLORIDE 5MG TAB TAKE ONE TABLET BY MOUTH DAILY Medication prescribed by Non-VA provider. Non-VA TRAMADOL HCL 50MG TAB TAKE ONE TABLET BY MOUTH TWICE DAILY NEEDED Medication prescribed by Non-VA provider. Non-VA VALSARTAN 80MG TAB TAKE ONE TABLET BY MOUTH ONCE DAILY Medication prescribed by Non-VA provider. OUTPT VITAMIN B COMPLEX CAP (Status = Active) TAKE 1 CAPSULE BY MOUTH ONCE DAILY FOR VITAMIN SUPPLEMENTATION Rx# [id number] Last Released: 06/09/23 Qty/Days Supply: 100/90 Rx Expiration Date: 06/05/24 Refills Remainin Indication: FOR VITAMIN SUPPLEMENTATION SUPPLIES /asiya/ Adam Mcfadden MD Otolaryngology Signed: 10/05/2023 10:32 ADAM MCFADDEN [facility]
--- OUTSIDE RECORDS SUMMARY | 2024-03-25 08:27 | XMS_ITS | Encounter Summary ---
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 Date/Time Encounter Type Encounter Description Reason Provider Source Feb 05, 2024 10:00 AM OFFICE O/P EST MOD 30 MIN PRIMARY CARE/MEDICINE ICD-10-CM Z00.01 Encounter for general adult medical exam w abnormal findings RASHID SOUTH [facility] Encounter Template Text not used by ID Assessments - Encounter Diagnoses This section includes the primary and secondary diagnoses documented for the Encounter. Date/Time Primary/Secondary Diagnosis Diagnosis Name Provider Source Mar 11, 2024 03:49 PM PRIMARY Encounter for general adult medical exam w abnormal findings RASHID SOUTH [place] Mar 11, 2024 03:49 PM SECONDARY Encounter for immunization KATERINE GONZALES [place] Plan of Treatment: Future Appointments (+ 6 months) and Future Tests (+/- 45 days) The Plan of Treatment section includes future care activities for the patient [facility] This section includes future appointments and future orders which are active, pending or scheduled. Future Appointments This section includes appointments that were scheduled to occur 6 months from the date of the Encounter, up to a maximum of 20 appointments. The data comes from all ID treatment facilities. Appointment Date/Time Appointment Type Appointme nt Facility Name Feb 09, 2024 08:30 AM AMBULATORY - MEDICINE [facility] Jun 14, 2024 09:30 AM AMBULATORY - MEDICINE [facility] Lab Results: +/- 30 days of the encounter This section includes the Chemistry and Hematology Lab Results on record with ID for the patient. Radiology Reports and Pathology Reports are provided separately, in subsequent sections. Lab Results This section contains the Chemistry/Hematology Results that were resulted 30 days before or 30 daysafter the date of the Encounter. Date/Time Source Result Type Result - Unit Interpretation Reference Range Comment Feb 03, 2024 01:17 PM [facility] LIPID PANEL FASTING Specimen Type: SERUM No comment entered. Ordering Provider: RASHID SOUTH Report Released Date/Time: Jan 21, 2024 02:40 PM Reporting Lab: [facility] [address] [facility] [address] Performing Lab: [address] [address] CHOLESTEROL 182 mg/dL TRIGLYCERIDE 133 mg/dL 0-150 LDL calculated 109 mg/dL 0-129 CHOL/HDL 4.0 HDL CHOLESTEROL 46 mg/dL 40-60 Feb 03, 2024 01:17 PM [facility] LIVER FUNCTION Specimen Type: SERUM No comment entered. Ordering Provider: RASHID SOUTH Report Released Date/Time: Jan 21, 2024 02:40 PM Reporting Lab: [facility] [address] [facility] [address] Performing Lab: [facility] [address] [facility] [address] PROTEIN,TOTAL 6.7 g/dL 6.0-8.3 ALBUMIN 3.5 g/dL 3.5-5.0 ALKALINE PHOSPHATASE 135 U/L 40-150 AST 16 U/L 5-34 ALT 14 U/L BILIRUBIN, TOTAL 1.1 mg/dL 0.2-1.2 Feb 03, 2024 01:17 PM [facility] BASIC METABOLIC PANEL (fasting) Specimen Type: SERUM No comment entered. Ordering Provider: RASHID SOUTH Report Released Date/Time: Jan 21, 2024 02:40 PM Reporting Lab: [facility] [address] [facility] [address] Performing Lab: [address] [address] UREA NITROGEN 9 mg/dL 7-25 GLUCOSE 103 mg/dL H 65-100 SODIUM 138 mmol/L 135-145 POTASSIUM 4.6 mmol/L 3.5-5.0 CHLORIDE 104 mmol/L 100-110 CO2 23 meq/L 20-30 CREATININE, Serum 0.78 mg/dL 0.50-1.40 eGFR(CKD-EPI 2020) 89 mL/min >60 Feb 03, 2024 01:17 PM [facility] HEMOGLOBIN A1C PANEL Specimen Type: BLOOD Comment: Values obtained from A1C measurements can vary. For atypical A1C assays, a reported value of 7.0 could actually be between 6.72 and 7.28 if measured by a reference method. A reported value of 9.0 could actually be between 8.73 and 9.27. Ref: http://www.ngs p.org/CAPdata. asp Ordering Provider: RASHID SOUTH Report Released Date/Time: Jan 21, 2024 02:40 PM Reporting Lab: [address] [address] Performing Lab: [address] [address] HEMOGLOBIN A1C 5.7 H 4.0-5.6 Feb 03, 2024 01:17 PM [facility] TSH Specimen Type: SERUM No comment entered. Ordering Provider: RASHID SOUTH Report Released Date/Time: Jan 21, 2024 02:40 PM Reporting Lab: [address] [address] Performing Lab: [address] [address] TSH 1.18 u[IU]/mL 0.35-5.00 Feb 03, 2024 01:17 PM [facility] MICROSCOPIC AUTOMATED, URINE Specimen Type: URINE Comment: If Glucose = >500 and Ketones are positive, please alert the Physician. Ordering Provider: RASHID SOUTH Report Released Date/Time: Jan 21, 2024 02:40 PM Reporting Lab: [address] [address] Performing Lab: [address] [address] UA WBC 0-5 /[HPF] 0-5 UA BACTERIA 1+ /[HPF] NoneObs UA MUCUS MANY /[LPF] Trace UA HYALINE CASTS 2-4 /[LPF] 0-2 UA RBC 0-2 /[HPF] 0-3 UA SQUAMOUS EPITH FEW /[HPF] Feb 03, 2024 01:17 PM [facility] CBC AND DIFF (AUTO) Specimen Type: BLOOD No comment entered. Ordering Provider: RASHID SOUTH Report Released Date/Time: Jan 21, 2024 02:40 PM Reporting Lab: [address] [address] Performing Lab: [facility] [address] [facility] [address] WBC 7.76 10*3/uL 4.50-11.00 RBC 4.70 10*6/uL 4.23-5.66 HGB 13.9 g/dL 12.8-17 HCT 42.4 39.2-50.4 MCV 90.2 fL 82-99 MCHC 32.8 g/dL 30.8-35.1 PLT 288 10*3/uL 140-360 RDW-CV 12.4 12.0-16.0 MONO, ABS 0.63 10*3/uL 0.30-1.10 MCH 29.6 pg 26.2-32.6 NEUT % 64.9 43.7-75.8 LYMPH % 24.4 14.0-42.3 MONO % 8.1 5.1-13.7 EOS % 1.3 0.4-6.8 BASO % 1.0 0.1-2.0 NEUT, ABS 5.04 10*3/uL 2.20-7.60 LYMPH, ABS 1.89 10*3/uL 1.00-3.20 EOS, ABS 0.10 10*3/uL 0.03-0.44 BASO, ABS 0.08 10*3/uL 0.01-0.13 IMMATURE GRAN % 0.3 0.0-0.7 IMMATURE GRAN, ABS 0.02 10*3/uL 0.00-0.06 NRBC % 0.0 0.0-0.0 NRBC, ABS 0.00 10*3/uL 0.00-0.00 Feb 03, 2024 01:17 PM [facility] URINALYSIS Specimen Type: URINE Comment: If Glucose = >500 and Ketones are positive, please alert the Physician. Ordering Provider: RASHID SOUTH Report Released Date/Time: Jan 21, 2024 02:40 PM Reporting Lab: [facility] [address] [facility] [address] Performing Lab: [facility] [address] [facility] [address] UA COLOR Yellow Yellow UA APPEARANCE Turbid Clear UA GLUCOSE Normal mg/dL Negative UA KETONES NEGATIVE mg/dL Negative UA BLOOD NEGATIVE mg/dL Negative UA PROTEIN 20 mg/dL Negative UA NITRITE NEGATIVE mg/dL Negative UA BILIRUBIN NEGATIVE mg/dL Negative UA SPECIFIC GRAVITY 1.024 H 1.016-1.02 2 UA pH 5.5 5.0-9.0 UA UROBILINOGEN Normal mg/dL <2.0 UA LEUKOCYTE NEGATIVE Negative Immunizations: All administered on the encounter date This section contains immunizations associated to the Encounter. Immunization Series Date Issued Reaction Comments INFLUENZA, HIGH-DOSE, TRIVALENT, PF Feb 04 Social History: Smoking Status (Most current) and Tobacco Use (All prior to encounter date) This section includes the most current, and the historical, smoking and tobacco- related health factors from the ID facility where the Encounter took place. Current Smoking Status This section includes the most current smoking, or tobacco-related health factor, from the ID facility where the Encounter took place. Date/Time Current Smoking Status Comment Indu zamora Aug 20, 2023 10:00 AM [facility] [place] Tobacco Use History This section includes a history of the smoking, or tobacco-related health factors, that were collected on or before the date of the Encounter. The data comes from the ID facility where the Encounter took place. Date/Time Smoking Status/Tobacco Use Comment Julito acgerald Sep 02, 2022 10:30 AM [facility] [place] Dec 27, 2020 10:00 AM [facility] [place] Feb 28, 2019 10:10 AM [facility] [place] Sep 14, 2017 09:54 AM LIFETIME NON-TOBACCO USER [place] Sep 01, 2016 01:01 PM LIFETIME NON-TOBACCO USER [place] Jul 02, 2015 01:09 PM LIFETIME NON-TOBACCO USER [place] May 08, 2009 01:08 PM LIFETIME NON-TOBACCO USER [place] Encounter Notes: All associated encounter notes This section contains the clinical notes associated to the Encounter. Date/Time Encounter Note(s) Provider Source Feb 05, 2024 10:27 AM PHYSICIAN NOTE: LOCAL TITLE: NOTE STANDARD TITLE: PHYSICIAN NOTE DATE OF NOTE: FEB 05, 2024@10:27 ENTRY DATE: FEB 05, 2024@10:27:21 AUTHOR: RADHA SOUTH EXP COSIGNER: URGENCY: STATUS: COMPLETED CC: 83 year old WHITE MALE SERVICE CONNECTED % - 10 HPI: Patient presents today for routine follow-up the patient is just finished his left knee and is undergoing therapy with good results. He expects about 2 more appointments before they released him. He does report some difficulty getting down the steps for which he will try to have them focus on this. We did discuss the idea that 1 leg might be shorter so he should mention at least up measuring his legs so that the left can be prescribed. Mar 30 as the proposed schedule for RIGHT KNEE REPLACEMENT with Dr. Schroeder. Patient did see ENT and thought that the irritation from his vocal cords were from GERD. An increase in omeprazole was effective but he did not I have to cancel and a follow-up appointment which he will try to reschedule soon. Lives with son who works in second shift. Rare alcohol. No smoking. Husky dog in the house. Daughter always checks on him especially making sure he eats. Problem list and medications reviewed. Last Labs: Jan 2024 Active problems - Computerized Problem List is the source for the followin. Normocytic anemia 2. Prediabetes 3. Non-toxic multinodular goiter Now being treated by outside provider-Dr. Randhawa who monitors nodule size with ultrasound yearly 4. Cervical Radiculopathy 5. Gastroesophageal Reflux Disorder * 6. Vitamin B1 abd B12 deficiency 7. Coronary arteriosclerosis (SNOMED CT 26440835) sees private cardio twice yr as of SEPTEMBER 26; does have occlusive disease; Stented 2010 or 8. Gastroesophageal Reflux Disorder * 9. 10: PTCA:BS:Promus: LAD Everolimus-Eluting Stent 10. Surgical Arthroscopy of the Knee with Meniscectomy (Medial or Lateral) 1991 & 1994: Left Knee Meniscetomy 11. Surgical Arthroscopy of the Knee with Meniscus Repair (Medial and Lateral) 2008: Rt Knee Menisectomy 12. Repair of ruptured Musculotendinous Cuff (Eg, Rotator Cuff) Open; chronic 2009: Rt Rotator Cuff Repair 13. Hypercholesterolemia (SNOMED CT 30635053) 14. Benign essential hypertension (SNOMED CT 6493433) 15. Frequency of Urination Dr Moncada: urologist: jerrod [place] 4 mg 16. Appendectomy 17. 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 Sleep Apnea PHYSICAL EXAMINATION/DIRECTED EXAM: BP:113/63 (02/05/2024 10:12) Resp:20 (02/05/2024 10:12) Temp:96.9 F [36.1 C] (02/05/2024 10:12) Pulse:52 (02/05/2024 10:12) WEIGHT 02/05/2024 10:12 168.2(76.29)[26] 10/05/2023 10:01 172.5(78.24)[26] 09/07/2023 09:08 180(81.65)[27] Comfortable S1S2 RRR lungs CTA Benign abdomen No edema ASSESSMENT & PLAN: 83 year old MALE SERVICE CONNECTED % - 10 presents for annual [facility] follow- up. The patient is progressing well with his knee rehabilitation. He does expect that the other knee will be done sometime in March next year. He can certainly return for preop if this is not done through the orthopedic department. Otherwise we did discuss about rescheduling with the ENT to have a follow-up. Currently his labs are reassuringly normal as his stable prediabetes. Weight is also stable. The patient hypertension is also well-controlled with the current medications. Plan of care discussed with patient who articulates understanding. Chronic issues reviewed briefly; no changes to management unless specified above. RTC 6 months as requested with limited labs TIME ATTESTATION: Time spent directly with the [...] FILM TOPICALLY THREE TIMES DAILY NEEDED 5) OMEPRAZOLE 20MG EC CAP TAKE TWO CAPSULES BY MOUTH ACTIVE ONCE DAILY FOR GASTROESOPHAGEAL REFLUX DISEASE 6) VITAMIN B COMPLEX CAP TAKE 1 CAPSULE [...] TAB 80MG BY MOUTH ONCE DAILY ACTIVE 15 Total Medications Medication (Local) Status No local medications found. Medication (Remote) Status No remote medications found. /asiya/ RADHA SOUTH MD PHYSICIAN Signed: 03/11/2024 15:49 RADHA SOUTH [place] Feb 05, 2024 10:13 AM PREVENTIVE MEDICIN E NURSING NOTE: LOCAL TITLE: CLINICAL REMINDERS/NURSING STANDARD TITLE: PREVENTIVE MEDICINE NURSING NOTE DATE OF NOTE: FEB 05, 2024@10:13 ENTRY DATE: FEB 05, 2024@10:13:41 AUTHOR: ALISA GONZALESIGNER: URGENCY: STATUS: COMPLETED Suicide Screen: C-SSRS Screening [place] Suicide Severity Rating Scale (C-SSRS) screener 1. Over the past month, have you wished you were or wished you could go to sleep and not wake up? No 2. Over the past month, have you had any actual thoughts of killing yourself? No 3. Over the past month, have you been thinking about how you might do this? Response not required due to responses to other questions. 4. Over the past month, have you had these thoughts and had some intention of acting on them? Response not required due to responses to other questions. 5. Over the past month, have you started to work out or worked out the details of how to kill yourself? Response not required due to responses to other questions. 6. If yes, at any time in the past month did you intend to carry out this plan? Response not required due to responses to other questions. 7. In your lifetime, have you ever done anything, started to do anything, or prepared to do anything to end your life (for example, collected pills, obtained a gun, gave away valuables, went to the roof but didn't jump)? No 8. If YES, was this within the past 3 months? Response not required due to responses to other questions. Influenza Immunization: Influenza, High-Dose, Trivalent, Preservative Free (Fluzone-Syringe) Administered: INFLUENZA, HIGH-DOSE, TRIVALENT, PF Date Administered: Feb 05, 2024 10:00 Materials Handling Coordinator: [employer] PASTEUR Lot: [id number] Exp Date: Sep 12, 2024 [facility] [id number] Admin Route/Site: INTRAMUSCULAR/RIGHT DELTOID Dosage: 0.5mL Vaccine Information Statement(s): INFLUENZA(FLU) VACC(INACTIVATED OR RECOMBINANT)VIS Oct 19, 2020 (NAURUAN) Order By: Policy Administered By: Alisa Gonzales The Influenza Vaccine Information Statement (VIS) was reviewed with the patient/caregiver which lists the benefits and risks of the vaccine and the risks of not receiving the Influenza vaccine. The patient/caregiver denied any prior severe reaction to this vaccine or its components or a severe allergic reaction, such as anaphylaxis, to any vaccine or any injectable therapy. The patient/caregiver gave verbal consent to receive the vaccine. COVID-19 Immunization: Refused Moderna Monovalent COVID-19 vaccine Immunization: COVID-19 (MODERNA), MRNA, LNP-S, PF, 50 MCG/0.5 ML (AGES 12+ YEARS) Refusal Reason: PATIENT DECISION Patient refuses all immunization(s) in the COVID-19 group Date Documented: 02/05/24 10:14 [facility] REC COMPLETED BY PROVIDER DURING THE VISIT. /asiya/ ALISA GONZALES LPN LPN Signed: 02/05/2024 10:15 ALISA GONZALES [place]
--- OUTSIDE RECORDS SUMMARY | 2024-03-25 08:27 | XMS_ITS ---
Author Name [facility] [place] Organization [facility] [place] Address [address] [place] [id number] Care Team Providers Care Billing Adjudicator Name Role Phone RADHA SOUTH Primary Care [...] AGENC Y SUPP PL Sep 13, 2017 [id number] [phone] LEONARDOSHELL HERNANDEZ PATIENT MEDICARE (WNR) MEDICARE (M) PART B Sep 14, 2007 PART B [id number] [phone] [place] PATIENT MEDICARE (WNR) MEDICARE (M) PART B Sep 14, 2007 PART B [id number] [phone] MORAIMA SHELL Murray PATIENT MEDICARE (WNR) MEDICARE (M) PART A May 14, 2006 PART A [id number] [place] PATIENT MEDICARE (WNR) MEDICARE (M) PART A May 14, 2006 PART A [id number] DANNYBASSAM MurraySHELL PATIENT Selected Encounter This section includes the information on record at [place] for the Encounter. Date/Time Encounter Type Encounter Description Reason Pro vider Source Jan 01, 2024 05:06 PM Outpatient Encounter ADMIN PAT ACTIVTIES (MASNONCT) IHE Encounter Template Text not used by [place] Plan of Treatment: Future Appointments (+ 6 months) and Future Tests (+/- 45 days) The Plan of Treatment section includes future care activities for the patient from all [place] [facility]. This section includes future appointments and future orders which are active, pending or scheduled. Future Appointments This section includes appointments that were scheduled to occur 6 months from the date of the Encounter, up to a maximum of 20 appointments. The data comes from all [place] treatment facilities. Appointment Date/Time Appointment Type Appointme nt Facility Name Feb 05, 2024 10:00 AM AMBULATORY - [facility]ICINE [facility] [place] [facility] Feb 09, 2024 08:30 AM AMBULATORY MEDICINE [facility] [place] [facility] Jun 14, 2024 09:30 AM AMBULATORY MEDICINE [facility] [place] [facility] Encounter Notes: All associated encounter notes This section contains the clinical notes associated to the Encounter. Date/Time Encounter Note(s) Provider Source Jan 01, 2024 05:06 PM ADMINISTRATIVE NOTE: LOCAL TITLE: CCC: SCHEDULING ADMINISTRATION STANDARD TITLE: ADMINISTRATIVE NOTE DATE OF NOTE: JAN 01, 2024@17:06 ENTRY DATE: JAN 01, 2024@17:07 AUTHOR: PERI [place] COSIGNER: URGENCY: STATUS: COMPLETED CCC: SCHEDULING ADMINISTRATION Has ADDENDA DEMOGRAPHIC VERIFIED caleld to cancel appt 01/05/2024 1130 CWM/NO/OTOLARYNGOLOGY due to change in medical status and transportation. will call to reschedule. /asiya/ CYNTHIA AUSTIN VISN2 CCC LEAD MSA Signed: 01/01/2024 17:08 Receipt Acknowledged By: 01/04/2024 07:41 /asiya/ ARCADIO ONTIVEROS SONOGRAPHY TECHNICIAN 01/04/2024 ADDENDUM STATUS: COMPLETED Above note states vet will c/b to rs /asiya/ ARCADIO ONTIVEROS SONOGRAPHY TECHNICIAN Signed: 01/04/2024 07:42 [facility] [place] [facility]
--- OUTSIDE RECORDS SUMMARY | 2024-03-25 08:27 | XMS_ITS | Encounter Summary ---
Author Name [facility] [place] Organization [place] Address [address] [place] [id number] Care Team Providers Care Sex Crimes Detective Name Role Phone RADHA SOUTH Primary Care [...] to Policy [facility] Sep 13, 2017 [id number] [place] PATIENT MEDICARE (WNR) MEDICARE (M) PART B Sep 14, 2007 PART B [id number] [place] PATIENT MEDICARE (WNR) MEDICARE (M) PART B Sep 14, 2007 PART B [id number] LEONARDOSHELL HERNANDEZ PATIENT MEDICARE (WNR) MEDICARE (M) PART A May 14, 2006 PART A [id number] [place] PATIENT MEDICARE (WNR) MEDICARE (M) PART A May 14, 2006 PART A [id number] [phone] LEONARDOWILLIAM MurraySHELL PATIENT Selected Encounter This section includes the information on record at [place] for the Encounter. Date/Time Encounter Type Encounter Description Reason Provider Source Feb 09, 2024 08:30 AM OFFICE O/P EST LOW 20 MIN OTOLARYNGOLOGY/EN T ICD-10-CM K21.9 Gastro-esophageal reflux disease without esophagitis ADAM MCFADDEN [facility] Encounter Template Text not used by [place] Assessments - Encounter Diagnoses This section includes the primary and secondary diagnoses documented for the Encounter. Date/Time Primary/Secondary Diagnosis Diagnosis Name Provider Source Feb 23, 2024 01:53 PM PRIMARY Gastro-esophageal reflux disease without esophagitis ADAM MCFADDEN [facility] Plan of Treatment: Future Appointments (+ 6 months) and Future Tests (+/- 45 days) The Plan of Treatment section includes future care activities for the patient from all [place] treatmentfacilities. This section includes future appointments and future orders which are active, pending or scheduled. Future Appointments This section includes appointments that were scheduled to occur 6 months from the date of the Encounter, up to a maximum of 20 appointments. The data comes from all [place] treatment facilities. Appointment Date/Time Appointment Type Appointme nt Facility Name Jun 14, 2024 09:30 AM AMBULATORY - MEDICINE [facility] Lab Results: +/- 30 days of the encounter This section includes the Chemistry and Hematology Lab Results on record with [place] for the patient. Radiology Reports and Pathology Reports are provided separately, in subsequent sections. Lab Results This section contains the Chemistry/Hematology Results that were resulted 30 days before or 30 daysafter the date of the Encounter. Date/Time Source Result Type Result - Unit Interpretation Reference Range Comment Feb 03, 2024 01:17 PM [facility] LIPID PANEL FASTING Specimen Type: SERUM No comment entered. Ordering Provider: RASHID SOUTH Report Released Date/Time: Jan 21, 2024 02:40 PM Reporting Lab: [facility] [address] [facility] [phone] Performing Lab: [facility] [address] [facility] [address] CHOLESTEROL 182 mg/dL TRIGLYCERIDE 133 mg/dL 0-150 LDL calculated 109 mg/dL 0-129 CHOL/HDL 4.0 HDL CHOLESTEROL 46 mg/dL 40-60 Feb 03, 2024 01:17 PM [facility] LIVER FUNCTION Specimen Type: SERUM No comment entered. Ordering Provider: RASHID SOUTH Report Released Date/Time: Jan 21, 2024 02:40 PM Reporting Lab: [facility] [address] [facility] [phone] Performing Lab: [facility] [address] [facility] [address] PROTEIN,TOTAL 6.7 g/dL 6.0-8.3 ALBUMIN 3.5 g/dL 3.5-5.0 ALKALINE PHOSPHATASE 135 U/L 40-150 AST 16 U/L 5-34 ALT 14 U/L BILIRUBIN, TOTAL 1.1 mg/dL 0.2-1.2 Feb 03, 2024 01:17 PM [facility] BASIC METABOLIC PANEL (fasting) Specimen Type: SERUM No comment entered. Ordering Provider: RASHID SOUTH Report Released Date/Time: Jan 21, 2024 02:40 PM Reporting Lab: [facility] [address] [facility] [address] Performing Lab: [address] [address] UREA NITROGEN 9 mg/dL 7-25 GLUCOSE 103 mg/dL H 65-100 SODIUM 138 mmol/L 135-145 POTASSIUM 4.6 mmol/L 3.5-5.0 CHLORIDE 104 mmol/L 100-110 CO2 23 meq/L 20-30 CREATININE, Serum 0.78 mg/dL 0.50-1.40 eGFR(CKD-EPI 2020) 89 mL/min >60 Feb 03, 2024 01:17 PM [facility] HEMOGLOBIN A1C PANEL Specimen Type: BLOOD Comment: [...] Jan 21, 2024 02:40 PM Reporting Lab: [facility] [address] [facility] [phone] Performing Lab: [facility] [address] [facility] [address] HEMOGLOBIN A1C 5.7 H 4.0-5.6 Feb 03, 2024 01:17 PM [facility] TSH Specimen Type: SERUM No comment entered. Ordering Provider: RASHID SOUTH Report Released Date/Time: Jan 21, 2024 02:40 PM Reporting Lab: [facility] [address] [facility] [address] Performing Lab: [address] [address] TSH 1.18 u[IU]/mL 0.35-5.00 Feb 03, 2024 01:17 PM [facility] MICROSCOPIC AUTOMATED, URINE Specimen Type: URINE Comment: If Glucose = >500 and Ketones are positive, please alert the Physician. Ordering Provider: RASHID SOUTH Report Released Date/Time: Jan 21, 2024 02:40 PM Reporting Lab: [address] [address] Performing Lab: [address] [address] UA WBC 0-5 /[HPF] 0-5 UA BACTERIA 1+ /[HPF] NoneObs UA MUCUS MANY /[LPF] Trace UA HYALINE CASTS 2-4 /[LPF] 0-2 UA RBC 0-2 /[HPF] 0-3 UA SQUAMOUS EPITH FEW /[HPF] Feb 03, 2024 01:17 PM [facility] CBC AND DIFF (AUTO) Specimen Type: BLOOD No comment entered. Ordering Provider: RASHID SOUTH Report Released Date/Time: Jan 21, 2024 02:40 PM Reporting Lab: [address] [address] Performing Lab: [address] [place] [address] WBC 7.76 10*3/uL 4.50-11.00 RBC 4.70 10*6/uL [...] 10*3/uL 0.00-0.00 Feb 03, 2024 01:17 PM [facility] URINALYSIS Specimen Type: URINE Comment: If Glucose = >500 and Ketones are positive, please alert the Physician. Ordering Provider: RASHID SOUTH Report Released Date/Time: Jan 21, 2024 02:40 PM Reporting Lab: [address] [address] Performing Lab: [address] [address] UA COLOR Yellow Yellow UA APPEARANCE Turbid Clear UA GLUCOSE Normal mg/dL Negative UA KETONES NEGATIVE mg/dL Negative UA BLOOD NEGATIVE mg/dL Negative UA PROTEIN 20 mg/dL Negative UA NITRITE NEGATIVE mg/dL Negative UA BILIRUBIN NEGATIVE mg/dL Negative UA SPECIFIC GRAVITY 1.024 H 1.016-1.02 2 UA pH 5.5 5.0-9.0 UA UROBILINOGEN Normal mg/dL <2.0 UA LEUKOCYTE NEGATIVE Negative Vital Signs: All taken on the encounter date This section contains inpatient and outpatient Vital Signs collected on the date of the Encounter. Date/Time Temperature Pulse Blood Pressure Respiratory Rate SP02 Pain Height Weight Body Mass Index Source Feb 09, 2024 08:42 AM 97.3 68 143/71 16 98 0 171 26 [place] [facility] Encounter Notes: All associated encounter notes This section contains the clinical notes associated to the Encounter. Date/Time Encounter Note(s) Provider Source Feb 09, 2024 09:01 AM OTOLARYNGOLOGY NOTE: LOCAL TITLE: OTOLARYNGOLOGY CLINIC NOTE STANDARD TITLE: OTOLARYNGOLOGY NOTE DATE OF NOTE: FEB 09, 2024@09:01 ENTRY DATE: FEB 09, 2024@09:01:03 AUTHOR: ADAM MCFADDEN EXP COSIGNER: URGENCY: STATUS: COMPLETED FEB 09, 2024 JACOBSHELL SAN is a 83 y/o NON-SMOKER WHITE MALE, previously in [employer] FROM Sep TO Sep from [employer] [place], f/u of INTERMITTENT HOARSENESS 83-year-old lifelong non-smoker here for follow-up of his intermittent hoarseness. Patient has been taking the omeprazole 40 mg daily. This is an increase from 20 mg daily. He thinks it has had improvement. He did have a knee replacement on December 15 and is planning a second 1 in March. He has not been sleeping with a wedge but has been sleeping in a recliner secondary to his knee replacement and thinks that has helped as well. He feels as though his voice is stronger. He continues to not have dysphagia. He tries not to eat late at night but still sometimes does. PV: 83-year-old lifelong non-smoker presents with intermittent hoarseness. [...] He does work the gait at the [employer] through Thursday and states that he has [...] B12 deficiency 7. Coronary arteriosclerosis (SNOMED CT 86240359) 8. Gastroesophageal Reflux Disorder * 9. 09-06-09: PTCA:BS:Promus: LAD 10. Surgical Arthroscopy of the Knee with Meniscectomy (Medial or Lateral) 11. Surgical Arthroscopy of the Knee with Meniscus Repair (Medial and Lateral) 12. Repair of ruptured Musculotendinous Cuff (Eg, Rotator Cuff) Open; chronic 13. Hypercholesterolemia (SNOMED CT 84698347) 14. Benign essential hypertension (SNOMED CT 1097984) 15. Frequency of Urination 16. Appendectomy 17. Repair of Retinal Detachment from Previous Surgery/Procedure 18. Sleep Apnea MEDS: Active Outpatient Medications (including Supplies): CARBAMIDE [...] CAP TAKE TWO CAPSULES BY MOUTH ONCE ACTIVE DAILY FOR GASTROESOPHAGEAL REFLUX DISEASE VITAMIN B COMPLEX CAP TAKE 1 CAPSULE [...] Fam Hx: Non - contributory Soc Hx: [place]IF[place] NON-SMOKER ROS: Denies any other relavent ROS Vitals Enter at: Feb 09, 2024@08:42:31 BP: 143/71 P: 68 R: 16 T: 97.3 171 lb [77.56 kg] (02/09/2024 08:42) BMI: 26.1 CONSTITUTION: GENERAL APPEARANCE:Well developed, well nourished and groomed. No apparent acute or chronic distress. NO HOARSENESS, NO STRIDOR HEAD, FACE, SALIVARY GLANDS AND TMJ: Palpation of Parotid and Submandibular glands: Normal. Facial Mobility: Normal. EAR, NOSE, MOUTH AND THROAT: Pinnas - normal. Otoscopic exam: RIGHT EAR: External auditory canal normal, tympanic membrane mobile LEFT EAR: External auditory canal normal, tympanic membrane mobile Hearing: Moderate Hearing loss Nasal Interior: Turbinates and middle meatus - Inferior turbinates normal. Normal mucosa with no swelling, polyps, active bleeding or evidence of bleeding. Lips, Teeth and Gums: Lips normal. Oral Cavity and Oropharynx: Oral mucosa with normal color and moisture. Anterior 2/3rds of tongue normal. Breath quality normal. Hard palate normal. Normal floor of mouth, Posterior pharynx normal. EDENTULOUS WITHOUT DENTURES Right knee NECK AND THYROID: Neck: no adenopathy; no neck masses. Assessment/Plan FEB 09, 2024: 83-year-old lifelong non-smoker here for follow-up of his intermittent hoarseness. Patient has been taking the omeprazole 40 mg daily. This is an increase from 20 mg daily. He thinks it has had improvement. He did have a knee replacement on December 15 and is planning a second surgery in March. He has not been sleeping with a wedge but has been sleeping in a recliner secondary to his knee replacement and thinks that has helped as well. He feels as though his voice is stronger. He continues to not have dysphagia. He tries not to eat late at night but still sometimes does. Physical exam shows patient without hoarseness today. Rest of the physical exam is unchanged. 1. LPR -patient has shown significant proven on 40 mg of omeprazole. He is no longer having intermittent hoarseness. He was previously on 20 mg but had breakthrough symptoms. He will therefore continue on the 40 mg of omeprazole. Stressed the importance of him increasing his calcium intake. Patient will follow-up as needed. All questions were answered. Complete encounter includes: Review of past medical records Time spent with patient including obtaining history, physical exam, shared decision making, procedures Counseling and answering questions Post visit documentation to include but not limited to medication and lab ordering. Total time = Minimum 25 min MEDICATION RECONCILIATION Outpatient: Has the patient [...] Remote Allergy/ADR Data available for this patient [place] [facility] [place] [facility] No Known Allergies Med Recon NoGlosscriders (Tool #1) INCLUDED IN THIS LIST: Alphabetical [...] display of VA prescriptions dispensed from another VA or DoD facility (remote) is limited to active outpatient prescription entries matched to National Drug File at the originating site and may not include some items such as investigational drugs, compounds, etc. NOT INCLUDED IN THIS LIST: Medications self-entered by the patient into personal health records (i.e. [employer]) are NOT included in this list. Non-VA medications documented outside this [place], remote inpatient orders (regardless of status) and [...] FOR TWO DAYS BEFORE RN APPT Rx# [id number] Last Released: 06/05/23 Qty/Days Supply: Rx Expiration Date: 06/05/24 Refills Remainin Indication: FOR EAR WAX BLOCKAGE OUTPT CETIRIZINE HCL 10MG TAB (Status = Active) TAKE ONE TABLET BY MOUTH ONCE DAILY NEEDED FOR ALLERGIES Rx# [id number] Last Released: 06/05/23 Qty/Days Supply: Rx Expiration Date: 06/05/24 Refills Remainin Indication: FOR ALLERGIES Non-VA ISOSORBIDE MONONITRATE 30MG SA TAB TAKE THREE TABLETS BY MOUTH ONCE DAILY Medication prescribed by Non-VA provider. OUTPT MELATONIN 5MG CAP/TAB (Status = Active) TAKE ONE CAPSULE/TABLET BY MOUTH AT BEDTIME NEEDED FOR INSOMNIA Rx# [id number] Last Released: 06/09/23 Qty/Days Supply: Rx Expiration Date: 06/05/24 Refills Remainin Indication: FOR INSOMNIA OUTPT MENTHOL/M-SALICYLATE 10-15% TOP CREAM (Status = Active) APPLY A THIN FILM TOPICALLY THREE TIMES DAILY NEEDED Rx# [id number] Last Released: 12/01/23 Qty/Days Supply: Rx Expiration Date: 06/05/24 Refills [...] OUTPT OMEPRAZOLE 20MG EC CAP (Status = Active) TAKE TWO CAPSULES BY MOUTH ONCE DAILY FOR GASTROESOPHAGEAL REFLUX DISEASE Rx# [id number] Last Released: 02/05/24 Qty/Days Supply: 180/90 Rx Expiration Date: 10/05/24 Refills Remainin Indication: FOR GASTROESOPHAGEAL REFLUX DISEASE Non-VA OXYBUTYNIN CHLORIDE 5MG TAB TAKE ONE [...] MOUTH ONCE DAILY FOR VITAMIN SUPPLEMENTATION Rx# [id number] Last Released: 12/02/23 Qty/Days Supply: 100/90 Rx Expiration Date: 06/05/24 Refills Remainin Indication: FOR VITAMIN SUPPLEMENTATION SUPPLIES /asiya/ Adam Mcfadden MD Otolaryngology Signed: 02/09/2024 09:10 [facility] MCFADDEN [facility]
--- OUTSIDE RECORDS SUMMARY | 2024-03-25 08:27 | XMS_ITS | Encounter Summary ---
Author Name [place] Address [address] [place] [id number] Care Team Providers Care Retail Beauty Specialist Name Role Phone RADHA SOUTH Primary [...] to Policy [facility] Sep 13, 2017 [id number] [phone] [place] PATIENT MEDICARE (WNR) MEDICARE (M) PART B Sep 14, 2007 PART B [id number] [place] PATIENT MEDICARE (WNR) MEDICARE (M) PART B Sep 14, 2007 PART B [id number] [place] PATIENT MEDICARE (WNR) MEDICARE (M) PART A May 14, 2006 PART A [id number] [place] PATIENT MEDICARE (WNR) MEDICARE (M) PART A May 14, 2006 PART A [id number] [place] PATIENT Selected Encounter This section includes the information on record at [place] for the Encounter. Date/Time Encounter Type Encounter Description Reason Provider Source Oct 22, 2023 10:00 AM PSYTX W PT 30 MINUTES PCMHI INDIV ICD-10-CM Z63.4 Disappearance and of family member KARY BEYER [facility] Encounter Template Text not used by [place] Assessments - Encounter Diagnoses This section includes the primary and secondary diagnoses documented for the Encounter. Date/Time Primary/Secondary Diagnosis Diagnosis Name Provider Source Nov 23, 2023 06:32 AM PRIMARY Disappearance and of family member KARY BEYER [facility] Plan of Treatment: Future Appointments (+ 6 months) and Future Tests (+/- 45 days) The Plan of Treatment section includes future care activities for the patient [facility] [place] [facility] This section includes future appointments and future orders which are active, pending or scheduled. Future Appointments This section includes appointments that were scheduled to occur 6 months from the date of the Encounter, up to a maximum of 20 appointments. The data comes from all [place] treatment facilities. Appointment Date/Time Appointment Type Appointme nt Facility Name Feb 05, 2024 10:00 AM AMBULATORY - MEDICINE [facility] Feb 09, 2024 08:30 AM AMBULATORY MEDICINE [facility] Social History: Smoking Status (Most [...] Indu zamora Aug 20, 2023 10:[address] [facility] Tobacco Use History This section includes a history of the smoking, or tobacco-related health factors, that were collected on or before the date of the Encounter. The data comes from the [place] facility where the Encounter took place. Date/Time Smoking Status/Tobacco Use Comment Jluito gates Sep 02, 2022 10:[address] [facility] Dec 27, 2020 [facility] [facility] Feb 28, 2019 [facility] [facility] Sep 14, 2017 09:54 AM LIFETIME NON-TOBACCO USER [facility] Sep 01, 2016 01:01 PM LIFETIME NON-TOBACCO USER [facility] Jul 02, 2015 01:09 PM LIFETIME NON-TOBACCO USER [facility] May 08, 2009 01:08 PM LIFETIME NON-TOBACCO USER [facility] Encounter Notes: All associated encounter notes This section contains the clinical notes associated to the Encounter. Date/Time Encounter Note(s) Provider Source Oct 22, 2023 10:00 AM [facility] NOTE: LOCAL TITLE: PRIMARY MENTAL HEALTH OUTPATIENT FOLLOW UP NOTE STANDARD TITLE: MENTAL HEALTH OUTPATIENT NOTE DATE OF NOTE: OCT 22, 2023@10:00 ENTRY DATE: OCT 22, 2023@10:54:36 AUTHOR: KARY BEYER EXP COSIGNER: URGENCY: STATUS: COMPLETED VISIT DURATION: 30 min VISIT TYPE: Individual, [id number], follow-up visit PCP: DR. SOUTH DIAGNOSIS: Uncomplicated bereavement REASON FOR FOLLOW UP: Grief V[place]'S STATEMENT OF GOAL AND CONCERNS: The Ames reports things are getting better with time. He is finding it easier to talk about his without becoming emotional. He continues to juggle his adult children's squabbles and he is planning for knee replacement surgery in the fall. INTERVENTION: Supportive Therapy Interventions Discussed recent stressors, coping and termination. Ames reports benefit from supportive therapy. He is open to a referral to a grief group if one starts soon in the [facility]. DIAGNOSTIC IMPRESSIONS/PLAN: Ames is an 82-year-old man who presents with grief related to his 's passing 7 months ago. He appears to have good coping at this time. Treatment goals met. Will place on a list for a grief group, in the hope that one will start in mental health clinic in the near future. CURRENT IMPRESSION OF LETHALITY RISK / PLAN FOR RISK MANAGEMENT: Ames presents at low risk of harm to self or others at this time. INTERDICIPLINARY TREATMENT PLANNING INVOLVING: [facility] PLAN FOR FOLLOW-UP: Discharged from [facility]. will return to [facility] for routine care or sooner as needed. /asiya/ KARY BEYER PSYD CLINICAL PSYCHOLOGIST Signed: 10/22/2023 10:58 KARY BEYER
--- OUTSIDE RECORDS SUMMARY | 2024-03-25 08:27 | XMS_ITS | Encounter Summary ---
Author Name [facility] [place] [facility] [place] Address [address] [place] [address] Care Team Providers Care Hotel Reservation Agent Name Role Phone RADHA SOUTH Primary Care [...] AGENC Y SUPP PL Sep 13, 2017 [id number] [phone] [place] PATIENT MEDICARE (WNR) MEDICARE (M) PART B Sep 14, 2007 PART B [id number] [place] PATIENT MEDICARE (WNR) MEDICARE (M) PART B Sep 14, 2007 PART B [id number] [place] PATIENT MEDICARE (WNR) MEDICARE (M) PART A May 14, 2006 PART A [id number] [place] PATIENT MEDICARE (WNR) MEDICARE (M) PART A May 14, 2006 PART A [id number] [phone] [place] PATIENT Selected Encounter This section includes the information on record at [place] for the Encounter. Date/Time Encounter Type Encounter Description Reason Pro vider Source Jan 28, 2024 01:45 PM Outpatient Encounter PRIMARY CARE/MEDICINE IHE Encounter Template Text not used by [place] Plan of Treatment: Future Appointments (+ 6 months) and Future Tests (+/- 45 days) The Plan of Treatment section includes future care activities for the patient from all [place] treatmentfacilities. This section includes future appointments and [...] 05, 2024 10:00 AM AMBULATORY - MEDICINE [facility] Feb 09, 2024 08:30 AM AMBULATORY MEDICINE [facility] Jun 14, 2024 09:30 AM AMBULATORY MEDICINE [facility] Lab Results: +/- 30 days of the encounter This section includes the Chemistry and Hematology Lab Results on record with [place] for the patient. Radiology Reports and Pathology Reports are provided separately, in subsequent sections. Lab Results This section contains the Chemistry/Hematology Results that were resulted 30 days before or 30 daysafter the date of the Encounter. Date/Time Source Result Type Result - Unit Interpretation Reference Range Comment Feb 03, 2024 01:17 PM [facility] LIPID PANEL FASTING Specimen Type: SERUM No comment entered. Ordering Provider: RASHID SOUTH Report Released Date/Time: Jan 21, 2024 02:40 PM Reporting Lab: [facility] [address] [facility] [address] Performing Lab: [address] [address] CHOLESTEROL 182 mg/dL TRIGLYCERIDE 133 mg/dL 0-150 LDL calculated 109 mg/dL 0-129 CHOL/HDL 4.0 HDL CHOLESTEROL 46 mg/dL 40-60 Feb 03, 2024 01:17 PM [facility] BASIC METABOLIC PANEL (fasting) Specimen Type: SERUM No comment entered. Ordering Provider: RASHID SOUTH Report Released Date/Time: Jan 21, 2024 02:40 PM Reporting Lab: [facility] [address] [facility] [address] Performing Lab: [address] [address] UREA NITROGEN 9 mg/dL 7-25 GLUCOSE 103 mg/dL H 65-100 SODIUM 138 mmol/L 135-145 POTASSIUM 4.6 mmol/L 3.5-5.0 CHLORIDE 104 mmol/L 100-110 CO2 23 meq/L 20-30 CREATININE, Serum 0.78 mg/dL 0.50-1.40 eGFR(CKD-EPI 2020) 89 mL/min >60 Feb 03, 2024 01:17 PM [facility] LIVER FUNCTION Specimen Type: SERUM No comment entered. Ordering Provider: RASHID SOUTH Report Released Date/Time: Jan 21, 2024 02:40 PM Reporting Lab: [address] [address] Performing Lab: [address] [address] PROTEIN,TOTAL 6.7 g/dL 6.0-8.3 ALBUMIN 3.5 g/dL 3.5-5.0 ALKALINE PHOSPHATASE 135 U/L 40-150 AST 16 U/L 5-34 ALT 14 U/L BILIRUBIN, TOTAL 1.1 mg/dL 0.2-1.2 Feb 03, 2024 01:17 PM [facility] HEMOGLOBIN A1C PANEL Specimen Type: BLOOD [...] Jan 21, 2024 02:40 PM Reporting Lab: [address] [address] Performing Lab: [address] [address] HEMOGLOBIN A1C 5.7 H 4.0-5.6 Feb 03, 2024 01:17 PM [facility] TSH Specimen Type: SERUM No comment entered. Ordering Provider: RASHID SOUTH Report Released Date/Time: Jan 21, 2024 02:40 PM Reporting Lab: [address] [address] [facility] [address] [address] TSH 1.18 u[IU]/mL 0.35-5.00 Feb 03, 2024 01:17 PM [facility] CBC AND DIFF (AUTO) Specimen Type: BLOOD No comment entered. Ordering Provider: RASHID SOUTH Report Released Date/Time: Jan 21, 2024 02:40 PM Reporting Lab: [address] [address] Performing Lab: [address] [address] WBC 7.76 10*3/uL 4.50-11.00 RBC 4.70 10*6/uL [...] 10*3/uL 0.00-0.00 Feb 03, 2024 01:17 PM [facility] MICROSCOPIC AUTOMATED, URINE Specimen Type: URINE Comment: If Glucose = >500 and Ketones are positive, please alert the Physician. Ordering Provider: RASHID SOUTH Report Released Date/Time: Jan 21, 2024 02:40 PM Reporting Lab: [address] [address] Performing Lab: [address] [address] UA WBC 0-5 /[HPF] 0-5 UA BACTERIA 1+ /[HPF] NoneObs UA MUCUS MANY /[LPF] Trace UA HYALINE CASTS 2-4 /[LPF] 0-2 UA RBC 0-2 /[HPF] 0-3 UA SQUAMOUS EPITH FEW /[HPF] Feb 03, 2024 01:17 PM [facility] URINALYSIS Specimen Type: URINE Comment: If Glucose = >500 and Ketones are positive, please alert the Physician. Ordering Provider: RASHID SOUTH Report Released Date/Time: Jan 21, 2024 02:40 PM Reporting Lab: [facility] [address] [facility] [address] Performing Lab: [address] [address] UA COLOR Yellow Yellow UA APPEARANCE Turbid Clear UA GLUCOSE Normal mg/dL Negative UA KETONES NEGATIVE mg/dL Negative UA BLOOD NEGATIVE mg/dL Negative UA PROTEIN 20 mg/dL Negative UA NITRITE NEGATIVE mg/dL Negative UA BILIRUBIN NEGATIVE mg/dL Negative UA SPECIFIC GRAVITY 1.024 H 1.016-1.02 2 UA pH 5.5 5.0-9.0 UA UROBILINOGEN Normal mg/dL <2.0 UA LEUKOCYTE NEGATIVE Negative Encounter Notes: All associated encounter notes This section contains the clinical notes associated to the Encounter. Date/Time Encounter Note(s) Provider Source Jan 28, 2024 01:45 PM PRIMARY CARE TELEP [place] ENCOUNTER NOTE: LOCAL TITLE: TELEPHONE NOTE/PRIMARY CARE STANDARD TITLE: PRIMARY CARE TELEPHONE ENCOUNTER NOTE DATE OF NOTE: JAN 28, 2024@13:45 ENTRY DATE: JAN 28, 2024@13:45:12 AUTHOR: PALLAVI ALANIS EXP COSIGNER: URGENCY: STATUS: COMPLETED Cooker Sulfite called to [ ] Schedule primary care appt [ ] Reschedule primary care appt. [X} Remind of upcoming primary care appt. SPOKE WITH: [X} Fasting blood work needed, and vet reminded. [ ] Non fasting blood work needed, and vet reminded. [ ] No labs needed. [ ] UNABLE TO REACH : [ ] Left voicemail. [ ] Unable to leave voicemail. [ ] No phone number available/no working phone number [ ] Mailed Letter Upcoming appt on 02/05/24 @ 10:00 am. /asiya/ PALLAVI ALANIS AMSWendy Signed: 01/28/2024 13:47 PALLAVI ALANIS DREXEL
--- OUTSIDE RECORDS SUMMARY | 2024-03-25 08:27 | XMS_ITS | Encounter Summary ---
Author Name [facility] [place] Organization [facility] [place] Address [address] [place] [address] Care Team Providers Care Security Compliance Specialist Name Role Phone RADHA SOUTH Primary [...] AGENC Y SUPP PL Sep 13, 2017 [id number] [phone] [place] PATIENT MEDICARE (WNR) MEDICARE (M) PART B Sep 14, 2007 PART B [id number] [place] PATIENT MEDICARE (WNR) MEDICARE (M) PART B Sep 14, 2007 PART B [id number] DANNYSHELL [place] PATIENT MEDICARE (WNR) MEDICARE (M) PART A May 14, 2006 PART A [id number] [place] PATIENT MEDICARE (WNR) MEDICARE (M) PART A May 14, 2006 PART A [id number] [phone] DANNYBASSAM MurraySHELL PATIENT Selected Encounter This section includes the information on record at [place] for the Encounter. Date/Time Encounter Type Encounter Description Reason Pro vider Source Jan 07, 2024 09:52 AM Outpatient Encounter OTOLARYNGOLOGY/ENT IHE Encounter Template Text not used by [place] Plan of Treatment: Future Appointments (+ 6 months) and Future Tests (+/- 45 days) The Plan of Treatment section includes future care activities for the patient from all [place] treatmentfacilities. This section includes future appointments and future orders which are active, pending or scheduled. Future Appointments This section includes appointments that were scheduled to occur 6 months from the date of the Encounter, up to a maximum of 20 appointments. The data comes from all [place] treatment facilities. Appointment Date/Time Appointment Type Appointme nt Facility Name Feb 05, 2024 10:00 AM AMBULATORY - MEDICINE [facility] Feb 09, 2024 08:30 AM AMBULATORY MEDICINE [facility] Jun 14, 2024 09:30 AM AMBULATORY - MEDICINE [facility] Lab Results: +/- 30 days of the encounter This section includes the Chemistry and Hematology Lab Results on record with [place] for the patient. Radiology Reports and Pathology Reports are provided separately, in subsequent sections. Lab Results This section contains the Chemistry/Hematology Results that were resulted 30 days before or 30 daysafter the date of the Encounter. Date/Time Source Result Type Result - Unit Interpretation Reference Range Comment Feb 03, 2024 01:17 PM [facility] LIPID PANEL FASTING Specimen Type: SERUM No comment entered. Ordering Provider: RASHID SOUTH Report Released Date/Time: Jan 21, 2024 02:40 PM Reporting Lab: [facility] [address] [facility] [address] Performing Lab: [facility] [address] [facility] [address] CHOLESTEROL 182 mg/dL TRIGLYCERIDE 133 mg/dL 0-150 LDL calculated 109 mg/dL 0-129 CHOL/HDL 4.0 HDL CHOLESTEROL 46 mg/dL 40-60 Feb 03, 2024 01:17 PM [facility] BASIC METABOLIC PANEL (fasting) Specimen Type: SERUM No comment entered. Ordering Provider: RASHID SOUTH Report Released Date/Time: Jan 21, 2024 02:40 PM Reporting Lab: [facility] [address] [facility] [address] Performing Lab: [address] [address] UREA NITROGEN 9 mg/dL 7-25 GLUCOSE 103 mg/dL H 65-100 SODIUM 138 mmol/L 135-145 POTASSIUM 4.6 mmol/L 3.5-5.0 CHLORIDE 104 mmol/L 100-110 CO2 23 meq/L 20-30 CREATININE, Serum 0.78 mg/dL 0.50-1.40 eGFR(CKD-EPI 2020) 89 mL/min >60 Feb 03, 2024 01:17 PM [facility] LIVER FUNCTION Specimen Type: SERUM No comment entered. Ordering Provider: RASHID SOUTH Report Released Date/Time: Jan 21, 2024 02:40 PM Reporting Lab: [address] [address] Performing Lab: [address] [address] PROTEIN,TOTAL 6.7 g/dL 6.0-8.3 ALBUMIN 3.5 g/dL 3.5-5.0 ALKALINE PHOSPHATASE 135 U/L 40-150 AST 16 U/L 5-34 ALT 14 U/L BILIRUBIN, TOTAL 1.1 mg/dL 0.2-1.2 Feb 03, 2024 01:17 PM [facility] HEMOGLOBIN A1C PANEL Specimen Type: [...] Jan 21, 2024 02:40 PM Reporting Lab: [address] [address] Performing Lab: [facility] [address] [facility] [address] HEMOGLOBIN A1C 5.7 H 4.0-5.6 Feb 03, 2024 01:17 PM [facility] TSH Specimen Type: SERUM No comment entered. Ordering Provider: RASHID SOUTH Report Released Date/Time: Jan 21, 2024 02:40 PM Reporting Lab: [address] [address] Performing Lab: [address] [address] TSH 1.18 u[IU]/mL 0.35-5.00 Feb 03, 2024 01:17 PM [facility] MICROSCOPIC AUTOMATED, URINE Specimen Type: URINE Comment: If Glucose = >500 and Ketones are positive, please alert the Physician. Ordering Provider: RASHID SOUTH Report Released Date/Time: Jan 21, 2024 02:40 PM Reporting Lab: [facility] [address] [facility] [address] Performing Lab: [address] [address] UA WBC 0-5 /[HPF] 0-5 UA BACTERIA 1+ /[HPF] NoneObs UA MUCUS MANY /[LPF] Trace UA HYALINE CASTS 2-4 /[LPF] 0-2 UA RBC 0-2 /[HPF] 0-3 UA SQUAMOUS EPITH FEW /[HPF] Feb 03, 2024 01:17 PM [facility] URINALYSIS Specimen Type: URINE Comment: If Glucose = >500 and Ketones are positive, please alert the Physician. Ordering Provider: RASHID SOUTH Report Released Date/Time: Jan 21, 2024 02:40 PM Reporting Lab: [address] [address] Performing Lab: [address] [address] UA COLOR Yellow Yellow UA APPEARANCE Turbid Clear UA GLUCOSE Normal mg/dL Negative UA KETONES NEGATIVE mg/dL Negative UA BLOOD NEGATIVE mg/dL Negative UA PROTEIN 20 mg/dL Negative UA NITRITE NEGATIVE mg/dL Negative UA BILIRUBIN NEGATIVE mg/dL Negative UA SPECIFIC GRAVITY 1.024 H 1.016-1.02 2 UA pH 5.5 5.0-9.0 UA UROBILINOGEN Normal mg/dL <2.0 UA LEUKOCYTE NEGATIVE Negative Feb 03, 2024 01:17 PM [facility] CBC AND DIFF (AUTO) Specimen Type: BLOOD No comment entered. Ordering Provider: RASHID SOUTH Report Released Date/Time: Jan 21, 2024 02:40 PM Reporting Lab: [facility] [address] [facility] [address] Performing Lab: [facility] [address] [facility] [address] WBC 7.76 10*3/uL 4.50-11.00 RBC 4.70 10*6/uL [...] 0.0 0.0-0.0 NRBC, ABS 0.00 10*3/uL 0.00-0.00 Encounter Notes: All associated encounter notes This section contains the clinical notes associated to the Encounter. Date/Time Encounter Note(s) Provider Source Jan 07, 2024 09:52 AM TELEPHONE ENCOUNTE R NOTE: LOCAL TITLE: TELEPHONE NOTE/SPECIALTY CLINIC STANDARD TITLE: TELEPHONE ENCOUNTER NOTE DATE OF NOTE: JAN 07, 2024@09:52 ENTRY DATE: JAN 07, 2024@09:52:07 AUTHOR: ARCADIO ONTIVEROS EXP COSIGNER: URGENCY: STATUS: COMPLETED does not want to rs appt at this time. RTC with PID 01/05/2024 disp /es/ ARCADIO ONTIVEROS LEHR ATTENDANT Signed: 01/07/2024 09:52 ARCADIO ONTIVEROS [place] [facility]
--- NOTE | 2024-03-25 08:28 | MHC.OFFVIS ---
Intake Visit Reasons: 1Y PVR/Med Review(Nisha) Intake Note: Pt presents to the office today for a 1 year PVR/Med review PVR-0ml Allergies No Known Allergies Allergy (Verified 03/25/24 08:28) HPI Comments Details: Mayo is a pleasant male. He is a patient of Dr. Cho. He is seen for the following urologic conditions - erectile dysfunction - overactive bladder Yearly review Has been on tolterodine for anticholinergic PVR stable Refill medication to [facility] Erectile dysfunction Trialed multiple oral medications Carries nitroglycerin but does not use Would like trial of oral medications again Prescription for 100 mg sildenafil provided Overactive bladder Good prior response to oxybutynin Overactive bladder has been previously on oxybutynin 5 mg p.o. b.i.d. Currently on tolterodine PSA 07/03 2.3, 11/03 2.4, 01/05 2.7 PFSH Medical History BPH (benign prostatic hyperplasia) Elevated blood pressure reading in office with diagnosis of hypertension HTN (hypertension) Mild acid reflux Nocturia Surgical History History of surgery Family History (Updated 12/23/22 @ 09:10 by JIA Nelson) Father No problems noted. Mother No problems noted. Social History (Updated 12/23/22 @ 09:11 by JIA Nelson) Alcohol intake: current Alcohol intake frequency: does not drink Patient Tobacco Use Status: Never used Tobacco Review of Systems Const Denies chills and Denies fever(s) Card Reports no additional complaints and Denies syncope Resp Denies cough GI Denies abdominal pain and Denies heartburn Reports as per HPI and Denies change in libido Neuro Denies syncope Psych Denies change in libido Endo Denies change in libido Physical Exam Const General: cooperative, healthy appearing, comfortable and no acute distress Orientation/consciousness: patient oriented x3 HEENT Face and sinus: Yes normal facial exam Mouth: moist mucous membranes Neck Neck: Yes normal visual inspection, Yes full ROM and Yes trachea midline Chest Chest palpation & inspection: normal inspection of the chest Resp Effort & Inspection: normal respiratory effort, able to speak in complete sentences and no respiratory distress GI Inspection: Yes normal to inspection Back/Spine/Pelvis Cervical Spine: normal cervical lordosis Thoracic/Lumbar Spine: thoracic and lumbar spine normal to inspection Skin General skin exam: no rashes or lesions noted Neuro General: patient oriented x3, gait normal, tone normal and moves all extremities Extrem General: Yes normal to inspection and Yes capillary refill normal Office Procedures Post Void Residual Post Residual Void Post Void Residual (PVR): 0 [id number]-[id number] Void Residual by ultrasound Results AMB Urinalysis, Automated UA Leukoctes 0 Kary/uL Last Edit by Kayleigh Salinas CMA on 03/25/24 08:43 UA Nitrite Negative Last Edit by Kayleigh Salinas CMA on 03/25/24 08:43 UA Urobilinogen 0.2 mg/dL Last Edit by Kayleigh Salinas CMA on 03/25/24 08:43 UA Protein 15 mg/dL Last Edit by Kayleigh Salinas CMA on 03/25/24 08:43 UA pH 6.0 Last Edit by Kayleigh Salinas CMA on 03/25/24 08:43 UA Blood 0 Dany/uL Last Edit by Kayleigh Salinas CMA on 03/25/24 08:43 UA Specific [place] 1.020 Last Edit by Kayleigh Salinas CMA on 03/25/24 08:43 UA Ketone Negative Last Edit by Kayleigh Salinas CMA on 03/25/24 08:43 UA Bilirubin 1 mg/dL Last Edit by Kayleigh Salinas CMA on 03/25/24 08:43 UA Glucose 0 mg/dL Last Edit by Kayleigh Salinas CMA on 03/25/24 08:43 Results Reviewed Results Reviewed: Laboratory Last Values Urine pH (Auto) 6.0 03/25/24 08:31 Specific [place] (Auto) 1.020 03/25/24 08:31 Urine Protein (Auto) 15 mg/dL 03/25/24 08:31 Glucose (UA)(Auto) 0 mg/dL 03/25/24 08:31 Urine Ketones (Auto) Negative 03/25/24 08:31 Urine Blood (Auto) 0 Dany/uL 03/25/24 08:31 Urine Nitrite (Auto) Negative 03/25/24 08:31 Urine Bilirubin (Auto) 1 mg/dL 03/25/24 08:31 Urine Urobilinogen (Auto) 0.2 mg/dL 03/25/24 08:31 Leukocyte Esterase (Auto) 0 Kary/uL 03/25/24 08:31 Assessment & Plan Assessment & Plan (1) Erectile dysfunction: Code(s): N52.9 - Male erectile dysfunction, unspecified Category: Medical (2) Urinary urgency: Code(s): R39.15 - Urgency of urination Category: Medical Plan 12 month follow-up Orders: Orders AMB Urinalysis Automated Today R39.15 - Urgency of urination AMB Post Void Residual by ultrasound Today R39.15 - Urgency of urination Medications: Refilled fesoterodine ER 8 mg PO DAILY 90 days 90 tabs 3RF Patient Instructions: Imaging studies, laboratory and physical exam results were discussed and reviewed in detail. No major barriers to patient understanding were identified. An opportunity to ask questions regarding the treatment plan was provided. All questions were answered. The patient expressed understanding and agreement with the above treatment plan. The patient is aware they should contact our office by phone for worsening of their current condition or the appearance of new urologic symptoms. Compliance is encouraged with any medications and followup testing that is ordered. It is a privilege to participate in the urologic care of your patient. If you have any questions or concerns regarding treatment for the above conditions, or other urologic issues, please do not hesitate to contact me. The office telephone contact is [phone]. This note is constructed using voice recognition software. While every effort has been made to ensure accuracy floorleader errors may have been included. Yours sincerely, Dr Max Strong MD, [facility] - Urology Providers of Expert, Compassionate Care for the Genitourinary System Coding Level of Care Code Est Pt Level 4 (66806) Diagnoses Erectile dysfunction N52.9 Urinary urgency R39.15 CPT Codes Post Residual Void - PVR CPT Code: 43699-[place] Void Residual by ultrasound ([id number])
== END 2024-03-25 08:59 | disposition home or self-care (01) ==
PROVIDERS: PCP Internal Medicine; Visit Provider Urology
DX: N52.9 Male erectile dysfunction, unspecified (principal); R39.15 Urgency of urination
CPT/HCPCS: 99214

== ENCOUNTER → 2024-03-25 08:17 | Outpatient (BNVA) | payer MEDICARE, SELFPAY | PROVIDERS: PCP Internal Medicine; Visit Provider Urology | DX: N52.9 Male erectile dysfunction, unspecified (principal); R39.15 Urgency of urination | CPT/HCPCS: 51798; 81003; 99212 ==

== ENCOUNTER 2025-03-15 11:10 | Outpatient (REF) | payer MEDICARE, OTHER, SELFPAY ==
--- OUTSIDE RECORDS SUMMARY | 2025-03-15 12:46 | XMS_ITS | Clinical Summary ---
Author Organization [facility] [address] [facility] Address [address] [place] [address] Phone Care Team Providers Care Invasive Physician Name Role Phone Hugo Cho MD Primary Care Provider Allergies No known active allergies Medications nitroglycerin (NITROSTAT) 0.4 mg SL tablet DISSOLVE ONE TABLET UNDER THE TONGUE EVERY 5 MINUTES NEEDED FOR CHEST PAIN. DO NOT EXCEED A TOTAL OF 3 DOSES IN 15 MINUTES 3 Active oxyBUTYnin XL (DITROPAN-XL) 15 mg 24 hr tablet Take 15 mg by mouth daily. Active aspirin 81 mg EC tablet Take 81 mg by mouth daily. 3 Active valsartan (DIOVAN) 80 mg tablet Take 80 mg by mouth daily. 8 Active traMADoL (ULTRAM) 50 mg tablet Take 50 mg by mouth as needed. 0 Active rosuvastatin (CRESTOR) 20 mg tablet Take 1 tablet (20 mg total) by mouth 1 (one) time each day. 5 Active omeprazole (PriLOSEC) [address] capsule Take 2 capsules (40 mg total) by mouth 1 (one) time each day. 4 Active metoprolol succinate (TOPROL-XL) 25 mg 24 hr tabletIndication s:Coronary artery disease involving chicken ranch coronary artery of chicken ranch heart without angina pectoris 1 tablet daily 90 tablet 2 5 Active isosorbide mononitrate (IMDUR) 30 mg 24 hr tablet TAKE 1 & 1/2 (ONE & ONE-HALF) TABLETS BY MOUTH ONCE DAILY 135 tablet 1 Active Active Problems Problem Noted Date Diagnosed Date Benign essential hypertension 08/04/2024 Gastro-esophageal reflux disease without esophag itis 08/04/2024 Arteriosclerosis of coronary artery 08/04/2024 Overview (08/04/2024): Oct 28, 2013 Entered By: HA RAMIRES Comment: sees private cardio twice yr as of SEPTEMBER 26; Oct 28, 2013 Entered By: HA RAMIRES Comment: does have occlusive disease; Stented 2010 or Hypercholesterolemia 08/04/2024 Status post total left knee replacement 08/05/19 25 Stented coronary artery 08/04/2024 History of adenomatous polyp of colon 08/04/2024 Esophageal dysphagia 08/04/2024 Raynaud's disease 06/20/2024 Assessment & Plan (06/20/2024 11:56 AM EDT): Will have his metoprolol decreased due to the possibility of Raynaud's. Assessment & Plan (06/20/2024 11:52 AM EDT): Patient with symptoms of Raynaud's. I asked him how long it has been going on it seems this been going on for a while but was finally noticed by the physicians at the [facility]. 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 We may ultimately need to get him off beta-anam completely and switching to calcium channel anam if he develops chest discomfort from an increased heart rate. Mixed hyperlipidemia 06/20/2024 Assessment & Plan (06/20/2024 11:56 AM EDT): Primary care switched her atorvastatin to Crestor. Patient is due for lipid check this week. Edema 10/23/2020 Overview (03/29/2024): Last Assessment & Plan: Patient has substantial lower leg edema but he is wearing very tight Velcro braces on both knees which I suspect is restricting the volume coming back from his legs. 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 I am going to send him for an echocardiogram to ensure that there is no evidence of LV systolic dysfunction I have asked him to remove the braces as soon as he gets home and keep his legs elevated. I did warn him that he is can be working through 12 December and his surgery is a 15 December and that may have been not enough time for the edema to go completely down and may hinder his recovery.I do not feel that this is congestive heart failure but we will check his echo Assessment & Plan (06/20/2024 11:56 AM EDT): Patient still has some mild lower extremity edema even though both knees been replaced and may be some lymphedema present now with patient has support socks in place. The above note was prepared with the help of voice recognition software. Please excuse any grammatical or spelling errors that may have occurred CAD (coronary artery disease) 03/29/2020 Overview (03/29/2024): Last Assessment & Plan: From a preoperative standpoint the patient does have some mild residual ischemia. There is not much I can do to reduce that he basically outstripped his collaterals to the LAD which has been totally occluded for years and would not be approachable from an interventional standpoint. I will continue all of his medical therapy prior to surgery. Avoid anemia as much as possible and avoid hypotension during induction. At this point the patient's medical management is maximized to minimize the amount of ischemia that may occur during surgery. Assessment & Plan (06/20/2024 11:56 AM EDT): Patient with a history of coronary disease status post stenting of the left anterior descending artery with [id number] collaterals. No anginal symptoms at this time. Previous stress testing showed some mild residual ischemia in the inferior wall will need to watch and see if backing off on the beta-anam produces any ischemia. Orders: metoprolol succinate (TOPROL-XL) 25 mg 24 hr tablet; Take 1 tablet (25 mg total) by mouth 1 (one) time each day. Do not crush or chew. Encounters Date Type Department Care Team Description 02/19/2025 1:13 AM EST - 02/19/2025 6:38 AM EST Emergency [facility] Emergency [address] [place] [id number] Silvana Scales MD Head injury, initial encounter (Primary Dx); Right temporal frontal scalp contusions, initial encounter Discharge Disposition: Home or Self Care from Last 3 Months Surgical History Surgery Date Site/Laterality Comments CORONARY ANGIOPLASTY WITH STENT PLACEMENT TOTAL KNEE ARTHROPLASTY Bilateral ROTATOR CUFF REPAIR Right Medical History Medical History Date Comments Hypertension Hyperlipidemia Sleep apnea GERD (gastroesophageal reflux disease) Detached retina CAD (coronary artery disease) Social History Tobacco Use Types Packs/Day Years Used Date Smoking Tobacco: Never Smokeless Tobacco: Never Alcohol Use Standard Drinks/Week Comments Yes 4 (1 standard drink = 0.6 oz pur e alcohol) 3-4 times/week Interpersonal Safety Answer Date Record ed Physical Abuse Unrecognized value 09/15/2024 Verbal Abuse Unrecognized value 09/15/2024 Sex and Gender Information Value Date Recorded Sex Assigned at Not on file Legal Sex Male 9:56 PM EST Gender Identity Male 09/08/2024 10:09 AM EDT Sexual Orientation Not on file Last Filed Vital Signs Vital Sign Reading Time Taken Comments Blood Pressure 115/69 02/19/2025 5:29 AM EST Pulse 64 02/19/2025 5:29 AM EST Temperature 36.2 C (97.2 F) 02/19/2025 5:29 AM EST Respiratory Rate 18 02/19/2025 5:29 AM EST Oxygen Saturation 98% 02/19/2025 5:29 AM EST Inhaled Oxygen Concentration - - Weight 72.6 kg (160 lb) 02/19/2025 12:31 AM EST Height 172.7 cm (5' 8 ) 02/19/2025 12:31 AM EST Body Mass Index 24.33 02/19/2025 12:31 AM EST Plan of Treatment Upcoming Encounters Date Type Department Care Team (Late st Contact Info) Description 04/21/2025 9:20 AM EST Office Visit [facility] [address] [place] [address] Ruben Palumbo MD [address] [place] [address] [place] [address] Health Maintenance Due Date Last Done Comments Medicare Annual Wellness Visit 02/22/2022 Social Influencers of Health Screening 02/22/2022 Hypertension/CHF/CAD Annual BMP Blood Test 02/23/2022 Depression Screening 03/16/2024 COVID-19 Vaccine ( season) 2024 11/28/2021, 05/21/2020, 04/30/2020 DTaP,Tdap,and Td Vaccines (6 - Td or Tdap) 07/01/2025 07/02/2015, 07/02/2015, 07/27/2013, Additional history exists Falls Risk Assessment 09/15/2025 09/15/2024 Cholesterol Screening (Lipid Panel) 08/05/2027 08/04/2022 Zoster Vaccines Completed 09/27/2019, 02/15, 05/09/2010 RSV Immunization Adult Patients Completed 06/13/2024 Influenza Vaccine Completed 02/17/2025, , 02/13/2023, Additional history exists Pneumococcal Vaccine: 50+ Years Completed 02/17/2025, 09/05/2014, 04/21/2014, Additional history exists HIB Vaccines Aged Out No longer eligi ble based on patient's age to complete this topic HPV Vaccines Aged Out No longer eligi ble based on patient's age to complete this topic Hepatitis A Vaccines Aged Out No long er eligible based on patient's age to complete this topic Hepatitis B Vaccines Aged Out No long er eligible based on patient's age to complete this topic IPV Vaccines Aged Out No longer eligi ble based on patient's age to complete this topic MMR Vaccines Aged Out No longer eligi ble based on patient's age to complete this topic Meningococcal ACWY Vaccine Aged Out N o longer eligible based on patient's age to complete this topic Meningococcal B Vaccine Aged Out No l onger eligible based on patient's age to complete this topic RSV Immunization Patients Under 20 months Aged Out No longer eligible based on patient's age to complete this topic Varicella Vaccines Aged Out No longer eligible based on patient's age to complete this topic Procedures Procedure Name Priority Date/Time Associated Diagnosis Comments CT CERVICAL SPINE WO CONTRAST STAT 02/19/2025 1:[address] MAXILLOFACIAL WO CONTRAST STAT 02/19/2025 1:[address] HEAD WO CONTRAST STAT 02/19/2025 1 :57 AM EST LIPID PANEL Routine 08/04/2022 from Last 3 Months or Most Recently Relevant to Health Maintenance Results * CT Cervical Spine wo Contrast (02/19/2025 1:57 AM EST) Anatomical Region Laterality Modality Spine, C-spine Computed Tomogra phy 02/19/2025 2:40 AM EST Impressions 02/19/2025 2:40 AM EST Impression: 1. No acute fracture or dislocation injury identified at the cervical spine. 2. Heterogeneous right thyroid lobe. May consider nonemergent thyroid ultrasound examination for further evaluation. This document has been electronically signed by: Rohan White MD on 02/19/2025 02:40:20 Narrative 02/19/2025 2:40 AM EST INDICATION: pain CT cervical spine without contrast Comparison: None provided. Findings: The visualized portions of the bilateral lung apices appear clear. The right thyroid lobe is heterogeneous in appearance. Mildly limited evaluation due to artifact. No significant cervical spondylolisthesis. Minimal to mild degenerative endplate changes are present at the cervical spine. Multilevel bilateral degenerative facet arthropathy present at the cervical spine. Nonspecific 1.2 cm sclerotic focus present at the anterior aspect of the C7 vertebral body. No acute fractures or dislocations. Procedure Note Rohan White MD - 02/19/2025 INDICATION: pain CT cervical spine without contrast Comparison: None provided. Findings: The visualized portions of the bilateral lung apices appear clear. The right thyroid lobe is heterogeneous in appearance. Mildly limited evaluation due to artifact. No significant cervical spondylolisthesis. Minimal to mild degenerative endplate changes are present at the cervical spine. Multilevel bilateral degenerative facet arthropathy present at the cervical spine.Nonspecific 1.2 cm sclerotic focus present at the anterior aspect of the [id number] body. No acute fractures or dislocations. IMPRESSION: Impression: 1. No acute fracture or dislocation injury identified at the cervical spine. 2. Heterogeneous right thyroid lobe. May consider nonemergent thyroid ultrasound examination for further evaluation. This document has been electronically signed by: Rohan White MD on 02/19/2025 02:40:[address] [facility] [address] PROCEDURES Final Res ult * CT Maxillofacial wo Contrast (02/19/2025 1:57 AM EST) Anatomical Region Laterality Modality Head and Neck Computed Tomogra phy 02/19/2025 2:36 AM EST Impressions 02/19/2025 2:36 AM EST Impression: 1. No acute fracture or dislocation injury of the facial bones identified. This document has been electronically signed by: Rohan White MD on 02/19/2025 02:36:38 Narrative 02/19/2025 2:36 AM EST INDICATION: pain CT maxillofacial without contrast Comparison: None provided. Findings: No acute fractures. Left globe prosthesis in place. The globes appear intact. No retrobulbar hematoma. Paranasal sinuses and mastoid air cells clear. Orbits normal. Minimal mucosal thickening identified at the inferior aspects of the bilateral frontal sinuses with mild mucosal thickening at the ethmoid air cells. Trace mucosal thickening present at the left maxillary sinus with mild mucosal thickening at the right sphenoid sinus. The bilateral mastoid air cells appear clear. The patient is edentulous. Procedure Note Rohan White MD - 02/19/2025 INDICATION: pain CT maxillofacial without contrast Comparison: None provided. Findings: No acute fractures. Left globe prosthesis in place. The globes appear intact. No retrobulbar hematoma. Paranasal sinuses and mastoid air cells clear. Orbits normal. Minimal mucosal thickening identified at the inferior aspects of the bilateral frontal sinuses with mild mucosal thickening at the ethmoidair cells. Trace mucosal thickening present at the left maxillary sinus with mild mucosal thickening at the right sphenoid sinus. The bilateralmastoid air cells appear clear. The patient is edentulous. IMPRESSION: Impression: 1. No acute fracture or dislocation injury of the facial bonesidentified. This document has been electronically signed by: Rohan White MD on 02/19/2025 02:36:[address] [facility] [address] PROCEDURES Final Res ult * CT Head wo Contrast (02/19/2025 1:57 AM EST) Anatomical Region Laterality Modality Head and Neck Computed Tomogra phy 02/19/2025 2:23 AM EST Impressions 02/19/2025 2:23 AM EST Impression: 1. No acute intracranial abnormality. No acute intracranial hemorrhage. 2. Mild right frontal scalp swelling. No acute calvarial fracture. This document has been electronically signed by: Rohan White MD on 02/19/2025 02:23:14 Narrative 02/19/2025 2:23 AM EST INDICATION: pain CT head without contrast Comparison: None provided. Findings: No intracranial mass, midline shift, hydrocephalus, or acute hemorrhage. There is generalized cerebral volume loss. Small focus of left temporo-occipital encephalomalacia present. Mild mucosal thickening identified within the ethmoid air cells and right sphenoid sinus with minimal mucosal thickening at the inferior aspects of the bilateral frontal sinuses. The bilateral mastoid air cells appear clear. Left globe prosthesis in place. No acute skull fracture. Mild right frontal scalp swelling present. Procedure Note Rohan White MD - 02/19/2025 INDICATION: pain CT head without contrast Comparison: None provided. Findings: No intracranial mass, midline shift, hydrocephalus, or acute hemorrhage. There is generalized cerebral volume loss. Small focus of left temporo-occipital encephalomalacia present. Mild mucosal thickening identified within the ethmoid air cells andright sphenoid sinus with minimal mucosal thickening at the inferior aspectsof the bilateral frontal sinuses. The bilateral mastoid air cells appear clear. Left globe prosthesis in place. No acute skull fracture. Mild right frontal scalp swelling present. IMPRESSION: Impression: 1. No acute intracranial abnormality. No acute intracranial hemorrhage. 2. Mild right frontal scalp swelling. No acute calvarial fracture. This document has been electronically signed by: Rohan White MD on 02/19/2025 02:23:14 [facility] CT PROCEDURES Final Res ult * Lipid panel (08/04/2022) Triglycerides 94 <=150 mg/dL Cholesterol 152 <=200 mg/dL HDL 47 >=39 mg/dL LDL Cholesterol 86 0 - 130 mg/dL Blood Venous blood specimen / Unknown us Historical Provider LAB BLOOD ORDERABLES Isabel l Result from Last 3 Months or Most Recently Relevant to Health Maintenance Insurance MEDICARE [facility] [address] [place] [address] Care Teams Invasive Physician Relationship Specialty Start Date End Date Hugo Cho MD [address] [place], [place] PCP - General 12/15/11
--- OUTSIDE RECORDS SUMMARY | 2025-03-15 12:46 | XMS_ITS | Continuity of Care Document ---
Author Organization [facility] [address] [place] [address] Phone [phone] Social History Type Date Description Comments Sex Male Sex Unknown Medical Devices Description No Information Available Encounters Description No Information Available Assessments Description No Information Available Plan of Treatment No Information Available Functional Status Description No Information Available Mental Status Description No Information Available Referrals Description No Information Available
[2025-03-15 13:40] LABS: Prostate Specific Antigen 4.21 ng/mL (<0.05-4.0)
== END 2025-03-15 11:11 | disposition home or self-care (01) ==
LOC: HO.10HDL 11:10
PROVIDERS: Visit Provider Urology
DX: N40.1 Benign prostatic hyperplasia with lower urinary tract symptoms (principal); R39.12 Poor urinary stream; Z12.5 Encounter for screening for malignant neoplasm of prostate
CPT/HCPCS: 36415; 84153